=== PATIENT | female | born 1960 | race American Indian/Alaskan Native ===

== ENCOUNTER 2020-12-15 19:31 | Inpatient (IN) | payer MEDICARE ==
--- NOTE | 2020-12-15 20:18 | Emergency Department Report ---
ED General Adult HPI - General Chief complaint: Weakness Stated complaint: I feel like it is my COPD PUI?: No Time Seen by Provider: 12/15/20 19:52 Source: patient, RN notes reviewed Mode of arrival: Stretcher Limitations: Physical Limitation - History of Present Illness Initial comments: The patient is a 60-year-old female. She is not known to myself previously. She reports a history of chronic respiratory failure on home oxygen, COPD and hypertension. She has received a COVID-19 vaccination. Primary CARE doctor: Dr Vinnie Lan Pulmonology: Dr Emmett Rivera The patient presents to the ER today with a primary complaint of cough, wheezing, shortness of breath, whitish mucus production, feeling like her COPD is exacerbating. Last COPD exacerbation was 3 to 4 months ago. She has been hospitalized at [facility] in the past. Denies travel, surgery, immobilization, leg pain or leg swelling, DVT and pulmonary embolism risk factors. She reports that she has some posttussive emesis, not able to tolerate liquid feeds at this time, has had some nausea and vomiting, and therefore has not been able to tolerate her oral antihypertensive medications. She complains of headache, which is occipital and throbbing, not sudden or thunderclap in nature, not maximal in intensity, and not the worst headache of her life. She typically gets a headache like this during her COPD exacerbations. She also endorses chest tightness, associated with coughing. Symptoms present for the past 3 to 4 days. They are constant. They decreased with rest. They worsen with physical exertion. -: Gradual, days(s) Location: head, chest Consistency: constant Improves with: rest Worsens with: movement - Related Data Allergies Allergy/AdvReac Type Severity Reaction Status Date / Time No Known Allergies Allergy Unverified 12/15/20 20:19 ED Review of Systems ROS: Stated complaint: COPD Other details as noted in HPI Constitutional: fever, malaise, weakness Eyes: denies: eye discharge ENT: congestion Respiratory: cough, shortness of breath, SOB with exertion, SOB at rest, wheezing Cardiovascular: chest pain (Chest wall pain with coughing). denies: syncope Gastrointestinal: nausea, vomiting. denies: abdominal pain Genitourinary: denies: dysuria Musculoskeletal: myalgia Neurological: headache, weakness Hematological/Lymphatic: denies: easy bleeding ED Physical Exam - General Limitations: Physical Limitation General appearance: alert, anxious, in distress - Head Head exam: Present: atraumatic, normocephalic - Eye Eye exam: Present: normal appearance, EOMI. Absent: nystagmus - ENT ENT exam: Present: normal exam, normal orophraynx, mucous membranes moist, normal external ear exam - Neck Neck exam: Present: normal inspection, full ROM. Absent: tenderness, meningismus - Respiratory Respiratory exam: Present: respiratory distress, wheezes, rhonchi, accessory muscle use. Absent: normal lung sounds bilaterally - Cardiovascular Cardiovascular Exam: Present: normal rhythm, tachycardia, normal heart sounds. Absent: bradycardia, irregular rhythm, systolic murmur, diastolic murmur, rubs, gallop - GI/Abdominal GI/Abdominal exam: Present: soft. Absent: distended, tenderness, guarding, rebound, rigid, pulsatile mass - Extremities Exam Extremities exam: Present: normal inspection, full ROM, other (2+ pulses noted in the bilateral upper and lower extremities. There is no palpable cord. negative Homans sign. Muscular compartments are soft. The pelvis is stable.). Absent: pedal edema, calf tenderness - Back Exam Back exam: Present: normal inspection. Absent: tenderness, CVA tenderness (R), CVA tenderness (L), paraspinal tenderness, vertebral tenderness - Neurological Exam Neurological exam: Present: alert, oriented X3, other (No facial droop. Tongue midline. Extraocular movements intact bilaterally. Facial sensation intact to light touch in V1, V2, V3 distribution bilaterally. 5 and a 5 strength in 4 extremities. Sensation intact to light touch in 4 extremities.). Absent: motor sensory deficit - Psychiatric Psychiatric exam: Present: anxious - Skin Skin exam: Present: warm, dry, intact, normal color. Absent: rash ED Course Vital Signs 12/15/20 12/15/20 12/15/20 20:09 20:14 20:16 Temperature 100.8 F H Pulse Rate 119 H 118 H 118 H Pulse Rate [ Anterior Bilateral Throughout] Respiratory 34 H 24 23 Rate Respiratory Rate [Anterior Bilateral Throughout] Blood Pressure 214/111 214/111 O2 Sat by Pulse 96 95 94 Oximetry 12/15/20 12/15/20 12/15/20 20:25 21:05 21:30 Temperature Pulse Rate 131 H Pulse Rate [ 116 H 150 H Anterior Bilateral Throughout] Respiratory 27 H Rate Respiratory 28 H 40 H Rate [Anterior Bilateral Throughout] Blood Pressure O2 Sat by Pulse 94 100 Oximetry 12/15/20 22:00 Temperature Pulse Rate 120 H Pulse Rate [ Anterior Bilateral Throughout] Respiratory Rate Respiratory Rate [Anterior Bilateral Throughout] Blood Pressure O2 Sat by Pulse 100 Oximetry - Reevaluation(s) Reevaluation #1: 12/15/20 20:24 Differential diagnosis, including but not limited to: COPD exacerbation, pneumonia, viral syndrome, migraine headache, tension headache, cluster headache, hypertensive urgency Assessment and plan: 60-year-old female, who is febrile, tachypneic and tachycardic, likely secondary to underlying COPD exacerbation, who denies DVT and pulmonary embolism risk factors, with a number of other typical symptoms for herself, including headache and chest tightness. Given fever, tachycardia, tachypnea, elevated blood pressure, I recommended admission to the medical ervice once initial diagnostics have resulted. We will obtain appropriate laboratory studies, x-ray the chest, start albuterol, Atrovent, steroids, give 1 L of fluid, and empiric antibiotics. We will also give acetaminophen. We will start with Norvasc for antihypertensive therapy, patient is likely volume depleted, and would prefer to avoid negative inotropes such as labetalol, and vasodilators, such as hydralazine. Have discussed this plan of care with the patient, who is agreeable to the a forementioned. She has received her Covid vaccination. She has no meningeal signs, and a GCS of 15. Do not suspect invasive intracranial infection at this time. Has equal pulses in upper and lower extremities, no pulsatile abdominal mass, aortic disease is unlikely. 12/15/20 21:04 Patient clinically worsening. We will start BiPAP. Patient is awake, very anxious, she is protecting her airway at this time. Hospital physician, Dr. Lottie Calvillo to admit to [facility] 12/15/20 21:42 Patient decompensated on BiPAP, and became hypoxic. We discussed the need for intubation. Patient gave consent for intubation. Patient intubated. Please see procedure note. She will be given IV antihypertensive therapy given inability to tolerate oral medications at this time. Hospital physician aware, to admit patient to the intensive care unit. Have requested page/discussion with pulmonary critical care. Hypokalemia, hypomagnesemia addressed. Patient induced with ketamine, could not tolerate ketamine only intubation, and therefore paralyzed with rocuronium. 12/15/20 23:16 Patient appears much more comfortable on mechanical ventilation. Blood pressure decreased while on fentanyl and propofol. Have made recommendations to nursing staff on how they may titrate these medications. Blood pressure currently 130s, I have canceled hydralazine. - Consultations Consultation #1: 12/15/20 22:05 Delfino history, physical, overall plan of care and clinical impression with critical care physician, Dr. Jaimes Who is agreeable to this plan of care, and will follow in consultation in the intensive care unit. - Intubation Time Out Performed: No (Emergency situation) Sedative: Ketamine Mg Given: 100 Paralytic: Rocuronium Mg Given: 100 Laryngoscope: fiberoptic video scope Size: 4 Assist Device Used: Bougie ET Tube Size: 7.5 Tube Secured Depth (cm): 23 Tube Secured Location: teeth Tube Placement Confirmation: visualized tube passing t, equal breath sounds bilat, no breath sounds over epi, confirmation by capnometr Intubation Complications: none Additional Comments: Patient on BiPAP, has 100%. Marked respiratory distress. Has given verbal consent for emergent intubation. 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 However, jaw spasming, not able to tolerate laryngoscopy. Paralyzed with 100 mg of rocuronium. Continues to receive [id number] ventilation, and simultaneous nasal cannula oxygenation at 15 L/min. Video laryngoscopy performed, patient found to be very anterior. Bougie catheter placed under direct video guidance, and then a 7.5 endotracheal tube is inserted under direct visualization with video laryngoscopy. Guitar Repairer balloon inflated, and attached to [id number], end-tidal capnography color change is appropriate. Prior to initiating patient on ventilator, deep pressure and excursion is applied to the anterior abdominal wall, to decompress the bilateral lungs, to avoid auto PEEP/breath stacking. Ventilator on lung protective strategy. ED Medical Decision Making - Lab Data Result diagrams: 12/15/20 20:24 12/15/20 20:24 Vital Signs 12/15/20 12/15/20 12/15/20 20:09 20:14 20:16 Temperature 100.8 F H Pulse Rate 119 H 118 H 118 H Respiratory 34 H 24 23 Rate Blood Pressure 214/111 214/111 O2 Sat by Pulse 96 95 94 Oximetry - EKG Data -: EKG Interpreted by Me EKG shows normal: sinus rhythm Rate: tachycardia - EKG Data When compared to previous EKG there are: previous EKG unavailable 12/15/20 20:37 EKG is interpreted 20: 30. Sinus rhythm, rate 114 bpm, tachycardia, normal axis, normal P wave axis, QTC 446 ms, left ventricular hypertrophy, motion artifact, abnormal EKG, this is not a STEMI. Do not have a prior for comparison. - Radiology Data Radiology results: pending Critical Care Time: Yes Critical care time in (mins) excluding proc time.: 45 Critical care attestation.: If time is entered above; I have spent that time in minutes in the direct care of this critically ill patient, excluding procedure time. ED Disposition Clinical Impression: COPD with acute exacerbation, Hypertensive urgency, Hypomagnesemia, Hypokalemia, Acute respiratory failure, Acute respiratory acidosis Disposition: 09 OP ADMIT IP TO THIS HOSP Is pt being admited?: Yes Does the pt Need Aspirin: No Condition: Critical
[2020-12-15] MEDS ORDERED: AZITHROMYCIN/NS 500 MG/250 ML 500 MG/250 ML BAG IV ONE (20:20)
[2020-12-15] MEDS ORDERED: cefTRIAXone/NS 1 GM/50 ML 1 GM/50 ML BAG IV ONE (20:20)
[2020-12-15] MEDS ORDERED: LACTATED RINGERS 1,000 ML IV ONE (20:30)
[2020-12-15] MEDS ORDERED: ALBUTEROL 2.5 MG/3 ML NEBU IH ONE (20:30)
[2020-12-15] MEDS ORDERED: IPRATROPIUM 0.02% NEBU 2.5 ML IH ONE (20:30)
[2020-12-15 20:59] LABS: Hemoglobin 10.8 gm/dl (10.1-14.3); Mean Corpuscular HGB Conc 32 % (30-34); Mean Corpuscular Volume 86 fl (79-97); Platelet Count 239 K/mm3 (140-440); Red Blood Count 3.98 M/mm3 (3.65-5.03); Red Cell Distribution Width 16.3 % (13.2-15.2)
[2020-12-15] MEDS ORDERED: ACETAMINOPHEN 325 MG TAB PO ONE (21:00)
[2020-12-15] MEDS ORDERED: METOCLOPRAMIDE 10 MG/2 ML INJ IV ONE (21:00)
[2020-12-15] MEDS ORDERED: methylPREDNISolone Sod Succinate 125 MG/2 ML INJ IV ONE (21:00)
[2020-12-15] MEDS ORDERED: amLODIPine 5 MG TAB PO ONE (21:00)
[2020-12-15] MEDS ORDERED: diphenhydrAMINE 50 MG/ML VIAL IV ONE (21:00)
[2020-12-15 21:03] LABS: Blood Urea Nitrogen 10 mg/dL (7-17); Calcium 9.2 mg/dL (8.4-10.2); Hemolysis Index 4
[2020-12-15 21:04] LABS: INR 0.81 (0.87-1.13)
[2020-12-15 21:05] LABS: BUN/Creatinine Ratio 33
[2020-12-15] MEDS ORDERED: MAGNESIUM SULFATE 2 GM/50 ML BAG IV ONE (21:15)
--- NOTE | 2020-12-15 21:19 | XRay Report ---
CHEST 1 VIEW 12/15/2020 9:04 PM INDICATION / CLINICAL INFORMATION: Dyspnea. COMPARISON: None available. FINDINGS: SUPPORT DEVICES: None. HEART / MEDIASTINUM: No significant abnormality. LUNGS / PLEURA: There is increased interstitial prominence with some interstitial opacities in bilate ral lungs. Lungs are hyperexpanded. No pneumothorax. Signer Name: Rick Carolina MD Signed: 12/15/2020 9:15 PM Workstation Name: [id number]
[2020-12-15] MEDS ORDERED: ROCURONIUM 50 MG/5 ML INJ IV ONE ×2 (21:30→21:40)
[2020-12-15] MEDS ORDERED: KETAMINE 500 MG/5 ML VIAL MDV ONE (21:30)
[2020-12-15] MEDS ORDERED: LIP THERAPY VASELINE TP PRN (21:40)
[2020-12-15] MEDS ORDERED: KETAMINE 500 MG/5 ML VIAL MDV IV ONE (21:40)
[2020-12-15] MEDS ORDERED: hydrALAZINE 20 MG/1 ML INJ IV ONE (21:40)
[2020-12-15] MEDS ORDERED: MINERAL OIL/PETROLATUM, WHITE OPHTH OINT 3.5 GM OU PRN (21:40)
[2020-12-15 21:42] LABS: Anisocytosis 1+; Platelet Estimate Consistent w Auto; Total Cells Counted 100
[2020-12-15] MEDS ORDERED: MORPHINE 2 MG/1 ML INJ IV PRN (21:43)
[2020-12-15] MEDS ORDERED: ACETAMINOPHEN 650 MG RECT SUPP PR PRN (21:43)
[2020-12-15] MEDS ORDERED: ONDANSETRON 4 MG/2 ML INJ IV PRN (21:43)
[2020-12-15] MEDS ORDERED: MORPHINE 4 MG/1 ML INJ IV PRN (21:43)
[2020-12-15] MEDS: fentaNYL 100 MCG/2 ML INJ IV PRN ×2 (21:54→22:10)
--- NOTE | 2020-12-15 21:55 | History and Physical Report ---
History of Present Illness Date of examination: 12/15/20 Date of admission: 12/15/2020 Chief complaint: Shortness of Breath History of present illness: 60-year-old -[place]ammar[place] female with known history of hypertension, COPD on home oxygen presenting to the emergency room today complaining of shortness of breath and cough which has been ongoing for the past few days. Patient denies any fever or chills, denies any chest pain, no headache or dizziness, but has had some nausea and vomiting. She has had some cough which has been productive of some whitish sputum. Patient denies any sick contacts or recent travel. Denies any contact with anyone with COVID-19. She has received COVID-19 vaccination. Upon arrival here in the emergency room today patient was seen severe respiratory distress and was placed on BiPAP initially and subsequently intubated. She received some nebulizing treatments and IV steroids with some improvement. Work-up in the emergency room today, labs were significant for hypokalemia of 3.0, hypomagnesemia of 1.6 Chest x-ray reveals increased interstitial prominence with some interstitial opacities in bilateral lungs. Lungs hyperexpanded and no pneumothorax. Patient is being admitted with COPD exacerbation with severe respiratory failure, hypomagnesemia and hypokalemia. Past History Past Medical History: COPD, hypertension Past Surgical History: No surgical history Social history: no significant social history, smoking (former smoker) Family history: no significant family history Medications and Allergies Allergies Allergy/AdvReac Type Severity Reaction Status Date / Time No Known Allergies Allergy Unverified 12/15/20 20:19 Active Meds: Active Medications Acetaminophen (Acetaminophen 650 Mg Rect Supp) 650 mg ID Q6H PRN PRN Reason: Pain MILD(1-3)/Fever >100.5/DELGADO Albuterol/Ipratropium (Ipratropium/Albuterol Sulfate 3 Ml Ampul.Neb) 1 ampul IH Q4HRT DAE Famotidine (Famotidine 20 Mg/2 Ml Inj) 20 mg IV BID DAE Fentanyl (Fentanyl 100 Mcg/2 Ml Inj) 50 mcg IV Q10MIN PRN PRN Reason: ANALGESIA Heparin Sodium (Porcine) (Heparin 5,000 Unit/1 Ml Vial) 5,000 unit SUB-Q Q8HR DAE Heparin Sodium (Porcine) (Heparin 5,000 Unit/1 Ml Vial) 5,000 unit SUB-Q Q8HR [facility] Hydrophilic Ointment (Lip Therapy Vaseline) 1 applic TP Q2HR PRN PRN Reason: Dry Lips Potassium Chloride (Kcl 10meq/100ml) 10 meq in 100 mls @ 100 mls/hr IV Q1H [facility] Stop: 12/16/20 01:59 Fentanyl Citrate (Fentanyl Drip Premix) 2,000 mcg in 100 mls @ 4.3 mls/hr IV TITR DAE; Protocol Propofol (Diprivan 10 Mg/Ml) 1,000 mg in 100 mls @ 2.58 mls/hr IV TITR DAE; Protocol Levofloxacin/Dextrose (Levaquin 500mg/100ml) 500 mg in 100 mls @ 100 mls/hr IV Q24H DAE; Protocol Methylprednisolone Sodium Succinate (Methylprednisolone Sod Succinate 40 Mg/1 Ml Inj) 40 mg IV Q8HR DAE Morphine Sulfate (Morphine 2 Mg/1 Ml Inj) 2 mg IV Q4H PRN PRN Reason: Pain, Moderate (4-6) Morphine Sulfate (Morphine 4 Mg/1 Ml Inj) 4 mg IV Q4H PRN PRN Reason: Pain , Severe (7-10) Multi-Ingred Cream/Lotion/Oil/Oint (Mineral Oil/Petrolatum, White Ophth Oint 3.5 Gm) 1 applic OU Q4HR PRN PRN Reason: Dry Eye(s) Ondansetron HCl (Ondansetron 4 Mg/2 Ml Inj) 4 mg IV Q8H PRN PRN Reason: Nausea And Vomiting Senna/Docusate Sodium (Sennosides/Docusate Sodium 8.6/50 Mg Tab) 1 tab FEEDTUBE BID DAE Sodium Chloride (Sodium Chloride 0.9% 10 Ml Flush Syringe) 10 ml IV BID DAE Sodium Chloride (Sodium Chloride 0.9% 10 Ml Flush Syringe) 10 ml IV PRN PRN PRN Reason: LINE FLUSH Review of Systems Constitutional: no fever, no chills Ears, nose, mouth and throat: no nasal congestion, no sore throat Cardiovascular: no chest pain, no palpitations Respiratory: cough, shortness of breath, wheezing Gastrointestinal: nausea, vomiting, no abdominal pain, no diarrhea Genitourinary Female: no pelvic pain, no flank pain, no dysuria, no hematuria Musculoskeletal: no neck pain, no low back pain Integumentary: no rash, no pruritis Neurological: no headaches, no confusion Psychiatric: no anxiety, no depression Endocrine: no polyphagia, no polydipsia, no polyuria, no nocturia Exam - Constitutional Vitals: Temp Pulse Resp BP Pulse Ox 100.8 F H 116 H 28 H 214/111 94 12/15/20 20:14 12/15/20 20:25 12/15/20 20:25 12/15/20 20:16 12/15/20 20:25 HEART Score - HEART Score Troponin: Troponin T < 0.010 ng/mL (0.00-0.029) 12/15/20 20:24 Results - Labs CBC & Chem 7: 12/15/20 20:24 12/15/20 20:24 Labs: Abnormal lab results 12/15/20 12/15/20 12/15/20 Range/Units 20:24 20:24 20:24 MCH 27 L (28-32) pg RDW 16.3 H (13.2-15.2) % Monocytes % (Manual) 23.0 H (0.0-7.3) % Lymphocytes # (Manual) 0.9 L (1.2-5.4) K/mm3 Monocytes # (Manual) 1.2 H (0.0-0.8) K/mm3 PT 11.8 L (12.2-14.9) Sec. INR 0.81 L (0.87-1.13) Potassium (3.6-5.0) mmol/L Chloride (98-107) mmol/L Carbon Dioxide (22-30) mmol/L Creatinine (0.6-1.2) mg/dL Magnesium 1.60 L (1.7-2.3) mg/dL 12/15/20 Range/Units 20:24 MCH (28-32) pg RDW (13.2-15.2) % Monocytes % (Manual) (0.0-7.3) % Lymphocytes # (Manual) (1.2-5.4) K/mm3 Monocytes # (Manual) (0.0-0.8) K/mm3 PT (12.2-14.9) Sec. INR (0.87-1.13) Potassium 3.0 L (3.6-5.0) mmol/L Chloride 95.8 L (98-107) mmol/L Carbon Dioxide 32 H (22-30) mmol/L Creatinine 0.3 L (0.6-1.2) mg/dL Magnesium (1.7-2.3) mg/dL Assessment and Plan - Patient Problems (1) COPD with acute exacerbation Current Visit: Yes Status: Acute Plan to address problem: Patient admitted and placed on nebulizing treatments and IV steroid. Placed on empiric IV antibiotics for possible underlying bronchitis. We await evaluation by medicine teacher. (2) Acute respiratory failure Current Visit: Yes Status: Acute Plan to address problem: Secondary to the COPD exacerbation. Patient is currently intubated and sedated. Consult placed to the smelter liner for evaluation. Will monitor ABG. (3) Hypertensive urgency Current Visit: Yes Status: Acute Plan to address problem: Patient has not been able to tolerate this oral antihypertensive medications. We will place on IV hydralazine as needed. Will monitor vital signs closely. (4) Hypokalemia Current Visit: Yes Status: Acute Plan to address problem: Potassium will be repleted and will monitor chemistry. (5) Hypomagnesemia Current Visit: Yes Status: Acute Plan to address problem: Magnesium will be repleted and will monitor chemistry. (6) DVT prophylaxis Current Visit: Yes Status: Acute Plan to address problem: Patient placed on subcutaneous heparin. (7) Full code status Current Visit: Yes Status: Acute Plan to address problem: Patient is full code.
[2020-12-15] MEDS ORDERED: hydrALAZINE 20 MG/1 ML INJ IV PRN (21:58)
[2020-12-15] MEDS ORDERED: HEPARIN 5,000 UNIT/1 ML VIAL SUB-Q SCH (22:00)
[2020-12-15] MEDS: fentaNYL DRIP Premix 2,000 MCG/100 ML BAG IV SCH (22:02)
--- NOTE | 2020-12-15 22:26 | XRay Report ---
CHEST 1 VIEW 12/15/2020 10:02 PM INDICATION / CLINICAL INFORMATION: ETT placement. COMPARISON: 12/15/2020 FINDINGS: SUPPORT DEVICES: ET tube is 5.1 cm above the tonya HEART / MEDIASTINUM: No significant abnormality. LUNGS / PLEURA: Increased interstitial prominence and opacities in bilateral lungs No pneumothorax. Signer Name: Rick Carolina MD Signed: 12/15/2020 10:22 PM Workstation Name: [id number]
[2020-12-15] MEDS: methylPREDNISolone Sod Succinate 40 MG/1 ML INJ IV SCH (22:28)
[2020-12-15] MEDS: IPRATROPIUM/ALBUTEROL SULFATE 3 ML AMPUL.NEB IH SCH (23:41)
[2020-12-16] MEDS: POTASSIUM CHLORIDE 10 MEQ 10 MEQ/100 ML BAG IV SCH ×4 (00:10→03:15)
[2020-12-16] MEDS: HEPARIN 5,000 UNIT/1 ML VIAL SUB-Q SCH ×4 (00:16→22:08)
[2020-12-16] MEDS: FAMOTIDINE 20 MG/2 ML INJ IV SCH ×3 (00:16→22:08)
--- NOTE | 2020-12-16 01:07 | XRay Report ---
ABDOMEN 1 VIEW INDICATION / CLINICAL INFORMATION: OG tube placement. COMPARISON: None available. FINDINGS: TUBES / LINES: An orogastric tube terminates over the distal stomach. BOWEL GAS PATTERN: There is mild gaseous distention of the colon and small bowel. FREE AIR / EXTRALUMINAL GAS: None seen. ADDITIONAL FINDINGS: No significant additional findings. IMPRESSION: Satisfactory positioning of the OG tube with a nonspecific, nonobstructive bowel gas pattern. Ileus i s a consideration. Signer Name: Christos Emery MD Signed: 12/16/2020 1:02 AM Workstation Name: [email or web address]
[2020-12-16] MEDS: IPRATROPIUM/ALBUTEROL SULFATE 3 ML AMPUL.NEB IH SCH ×5 (03:47→20:48)
[2020-12-16 04:38] LABS: Hematocrit 30.3 % (30.3-42.9); Hemoglobin 9.6 gm/dl (10.1-14.3); Mean Corpuscular HGB Conc 32 % (30-34); Mean Corpuscular Volume 86 fl (79-97); Platelet Count 223 K/mm3 (140-440); Red Blood Count 3.54 M/mm3 (3.65-5.03); Red Cell Distribution Width 16.1 % (13.2-15.2)
[2020-12-16 04:54] LABS: Blood Urea Nitrogen 13 mg/dL (7-17); Calcium 8.9 mg/dL (8.4-10.2); Hemolysis Index 6
[2020-12-16 04:57] LABS: INR 0.85 (0.87-1.13)
[2020-12-16 05:31] LABS: BUN/Creatinine Ratio 26
[2020-12-16] MEDS: fentaNYL DRIP Premix 2,000 MCG/100 ML BAG IV SCH ×2 (05:40→23:45)
[2020-12-16] MEDS: SENNOSIDES/DOCUSATE SODIUM 8.6/50 MG TAB FEEDTUBE SCH ×2 (06:30→11:34)
[2020-12-16 06:37] LABS: Total Cells Counted 100
[2020-12-16 06:38] LABS: Anisocytosis 1+; Platelet Estimate Consistent w Auto
[2020-12-16] MEDS: methylPREDNISolone Sod Succinate 40 MG/1 ML INJ IV SCH ×3 (06:54→22:06)
--- NOTE | 2020-12-16 08:48 | XRay Report ---
CHEST - 1 VIEW 0736 hours INDICATION: follow up respiratory failure COMPARISON: Yesterday FINDINGS: Support devices: The endotracheal tube is unchanged in position terminating 6 cm superior to the car oanh. A nasogastric tube has been inserted which is followed to the mid stomach but the distal tip is not included. Heart: Stable cardiomediastinal silhouette. Lungs/pleura: The lungs remain hyperaerated with mild interstitial prominence but no focal infiltrat e, pleural effusion or pneumothorax. Additional findings: None. IMPRESSION: No significant change. Hyperinflated lungs. Signer Name: Robinson Brown Jr, MD Signed: 12/16/2020 8:44 AM Workstation Name: [id number]
--- NOTE | 2020-12-16 11:54 | Electrocardiograph Report ---
[facility] Test Date: 2020-12-15 Test Time: 20:32:59 Pat Name: ANDREW DEL VALLE Department: Room: [place] [address] Gender: F Communication Assistant: Petrona CANALES : 1960 Requested By: ANNA SAUCEDO Order Number: [id number] Reading MD: Gretel Calderon Measurements Intervals [place] Rate: 114 P: 82 [place]: 160 QRS: 68 QRSD: 75 T: 175 QT: 324 QTc: 446 Interpretive Statements Sinus tachycardia Biatrial enlargement Probable LVH with secondary repol abnrm No previous ECG available for comparison Electronically Signed On 12-16-2020 11:53:58 EDT by Gretel Calderon
--- NOTE | 2020-12-16 12:53 | Consultation ---
History of Present Illness Consult date: 12/16/20 Requesting physician: ANNA SAUCEDO Reason for consult: COPD History of present illness: PULMONARY/CCM CONSULT NOTE (Full dictation # [id number]) Please see dictated notes for full details Past History Past Medical History: COPD, hypertension Past Surgical History: No surgical history Social history: no significant social history, smoking (former smoker) Family history: no significant family history Medications and Allergies Allergies Allergy/AdvReac Type Severity Reaction Status Date / Time No Known Allergies Allergy Unverified 12/15/20 20:19 Active Meds: Active Medications Acetaminophen (Acetaminophen 650 Mg Rect Supp) 650 mg PA Q6H PRN PRN Reason: Pain MILD(1-3)/Fever >100.5/DELGADO Albuterol/Ipratropium (Ipratropium/Albuterol Sulfate 3 Ml Ampul.Neb) 1 ampul IH Q4HRT [facility] Last Admin: 12/16/20 11:30 Dose: 1 ampul Documented by: Famotidine (Famotidine 20 Mg/2 Ml Inj) 20 mg IV BID [facility] Last Admin: 12/16/20 11:34 Dose: 20 mg Documented by: Fentanyl (Fentanyl 100 Mcg/2 Ml Inj) 50 mcg IV Q10MIN PRN PRN Reason: ANALGESIA Last Admin: 12/15/20 22:10 Dose: 50 mcg Documented by: Heparin Sodium (Porcine) (Heparin 5,000 Unit/1 Ml Vial) 5,000 unit SUB-Q Q8HR DAE Last Admin: 12/16/20 06:29 Dose: 5,000 unit Documented by: Hydralazine HCl (Hydralazine 20 Mg/1 Ml Inj) 10 mg IV Q4H PRN PRN Reason: Blood Pressure Hydrophilic Ointment (Lip Therapy Vaseline) 1 applic TP Q2HR PRN PRN Reason: Dry Lips Fentanyl Citrate (Fentanyl Drip Premix) 2,000 mcg in 100 mls @ 4.3 mls/hr IV TITR DAE; Protocol Last Admin: 12/16/20 05:40 Dose: 3 mcg/kg/hr, 12.9 mls/hr Documented by: Propofol (Diprivan 10 Mg/Ml) 1,000 mg in 100 mls @ 2.58 mls/hr IV TITR DAE; Protocol Last Titration: 12/15/20 22:14 Dose: 15 mcg/kg/min, 7.74 mls/hr Documented by: Levofloxacin/Dextrose (Levaquin 750mg/150ml) 750 mg in 150 mls @ 100 mls/hr IV Q24H [facility]; Protocol Methylprednisolone Sodium Succinate (Methylprednisolone Sod Succinate 40 Mg/1 Ml Inj) 40 mg IV Q8HR [facility] Last Admin: 12/16/20 06:54 Dose: 40 mg Documented by: Morphine Sulfate (Morphine 2 Mg/1 Ml Inj) 2 mg IV Q4H PRN PRN Reason: Pain, Moderate (4-6) Morphine Sulfate (Morphine 4 Mg/1 Ml Inj) 4 mg IV Q4H PRN PRN Reason: Pain , Severe (7-10) Multi-Ingred Cream/Lotion/Oil/Oint (Mineral Oil/Petrolatum, White Ophth Oint 3.5 Gm) 1 applic OU Q4HR PRN PRN Reason: Dry Eye(s) Ondansetron HCl (Ondansetron 4 Mg/2 Ml Inj) 4 mg IV Q8H PRN PRN Reason: Nausea And Vomiting Senna/Docusate Sodium (Sennosides/Docusate Sodium 8.6/50 Mg Tab) 1 tab FEEDTUBE BID [facility] Last Admin: 12/16/20 11:34 Dose: 1 tab Documented by: Sodium Chloride (Sodium Chloride 0.9% 10 Ml Flush Syringe) 10 ml IV BID [facility] Last Admin: 12/16/20 11:11 Dose: 10 ml Documented by: Sodium Chloride (Sodium Chloride 0.9% 10 Ml Flush Syringe) 10 ml IV PRN PRN PRN Reason: LINE FLUSH Physical Examination Vital signs: Vital Signs Pulse Resp BP Pulse Ox 118 H 22 199/109 99 12/15/20 19:59 12/15/20 19:59 12/15/20 19:59 12/15/20 19:59 Results - Laboratory Findings CBC and BMP: 12/16/20 04:13 12/16/20 04:13 ABG ABG pH 7.358 (7.320-7.450) 12/16/20 04:01 POC ABG pCO2 52.7 mmHg (32.0-48.0) H 12/16/20 04:01 POC ABG pO2 145.1 mmHg (83-108) H 12/16/20 04:01 POC ABG HCO3 29.0 12/16/20 04:01 ABG O2 Saturation 99.2 (0-100) 12/16/20 04:01 PT/INR, D-dimer PT 12.2 Sec. (12.2-14.9) 12/16/20 04:13 INR 0.85 (0.87-1.13) L 12/16/20 04:13 Abnormal lab findings: Abnormal Labs 12/15/20 12/15/20 12/15/20 20:24 20:24 20:24 RBC Hgb MCH 27 L RDW 16.3 H Seg Neuts % (Manual) Lymphocytes % (Manual) Monocytes % (Manual) 23.0 H Lymphocytes # (Manual) 0.9 L Monocytes # (Manual) 1.2 H PT 11.8 L INR 0.81 L ABG pH POC ABG pCO2 POC ABG pO2 ABG Hemoglobin ABG Oxyhemoglobin ABG Sodium ABG Potassium ABG Glucose Carboxyhemoglobin Sodium Potassium Chloride Carbon Dioxide Creatinine Glucose Magnesium 1.60 L Arterial Blood Glucose 12/15/20 12/15/20 12/16/20 20:24 22:44 04:01 RBC Hgb MCH RDW Seg Neuts % (Manual) Lymphocytes % (Manual) Monocytes % (Manual) Lymphocytes # (Manual) Monocytes # (Manual) PT INR ABG pH 7.179 L POC ABG pCO2 87.2 H 52.7 H POC ABG pO2 78.7 L 145.1 H ABG Hemoglobin 10.4 L 10.0 L ABG Oxyhemoglobin 91.8 L 98.7 H ABG Sodium 132.4 L ABG Potassium 3.0 L ABG Glucose 144 H 127 H Carboxyhemoglobin 0.2 L Sodium Potassium 3.0 L Chloride 95.8 L Carbon Dioxide 32 H Creatinine 0.3 L Glucose Magnesium Arterial Blood Glucose 144 H 127 H 12/16/20 12/16/20 12/16/20 04:13 04:13 04:13 RBC 3.54 L Hgb 9.6 L MCH 27 L RDW 16.1 H Seg Neuts % (Manual) 91.0 H Lymphocytes % (Manual) 2.0 L Monocytes % (Manual) Lymphocytes # (Manual) 0.1 L Monocytes # (Manual) PT INR 0.85 L ABG pH POC ABG pCO2 POC ABG pO2 ABG Hemoglobin ABG Oxyhemoglobin ABG Sodium ABG Potassium ABG Glucose Carboxyhemoglobin Sodium 136 L Potassium Chloride Carbon Dioxide Creatinine 0.5 L D Glucose 128 H Magnesium Arterial Blood Glucose
[2020-12-16] MEDS ORDERED: MAGNESIUM SULFATE 2 GM/50 ML BAG IV ONE (17:00)
[2020-12-16] MEDS ORDERED: ARFORMOTEROL 15 MCG/2 ML NEBU IH SCH (20:00)
[2020-12-16] MEDS: BUDESONIDE 0.5 MG/2 ML NEBU IH SCH (20:48)
--- NOTE | 2020-12-16 21:50 | Progress Note ---
Assessment and Plan Assessment and plan: This is a 60-year-old -[place] female with HTN, COPD on home oxygen 2L and former nicotine abuse admitted with COPD exacerbation with severe respiratory failure, hypomagnesemia and hypokalemia with consult to [facility]. Neuro: Acute metabolic encephaloptahy -fall/aspiration precautions -Restraints for safety -Sedated -RASS goal 0 to -1 -Daily SAT Cardio: ST, h/o HTN -PRN IV medication for BP control -Monitor BP per protocol -Resume home antihtn regimn when able Resp: Acute on Chronic Respiratory failure, COPD exacerbation, Home O2 NC 3 L, former smoker -OETT 7.5 at 23 at the lips -AC Rate 30, TV 300, FiO2 35%, PEEP 8 -VAP bundle -Wean MV as tolerated -SBT trials -Serial CXR and ABGs GI: NPO, OGT -Ntr consult -BS swallow eval when extubated -PPI -[place] -Aviod hypoglycemia -SSI : hypokalemaia, hypomagnesemia, -Repelte K and Mg -Trend BMP -[place] Endo: h/o DM -IVF with D5NS -SSI -Accucheck q4 -avoid huypoglemia -hold home metformin ID: COPD exacerbation -CXR shows some interstitial opacities in B lungs -Levaquin 12/16-12/20 -Trend CBC -afebrile Heme: -VTE; heparin subq -SCDS to BLE while in bed -Trend CBC The high probability of a clinically significant, sudden or life threatening deterioration of the [resp] system(s) required my full and direct attention, intervention and personal management. The aggregate critical care time was [60] minutes. This time is in addition to time spent performing reported procedures but includes the following: [x] Data Review and interpretation [x] Patient assessment and monitoring of vital signs [x] Documentation [x] Medication orders and management Disposition Plan: ICU Total Time Spent with Patient (Minutes): 60 History Interval history: This is a 60-year-old -[place] female with HTN, COPD on home oxygen 2L and former nicotine abuse who presented to the ED on 12/15 with complains of SOB and productive cough with whiteish sputum for the past few days, n/v and received her COVID 19 vaccination. Upon arrival here in the emergency room patient was in severe respiratory distress and was placed on BiPAP initially and subsequently intubated after receiving nebulizing treatments and IV steroids with some improvement. Work-up in the emergency room showed labs significant for hypokalemia of 3.0, hypomagnesemia of 1.6 and chest x-ray revealed increased interstitial prominence with some interstitial opacities in bilateral lungs, Lungs hyperexpanded and no pneumothorax. Patient is being admitted to the hospitalist service with COPD exacerbation with severe respiratory failure, hypomagnesemia and hypokalemia with consult to [facility]. 12/16: remains intubated, [facility] attempted PS with repeat ABG in hopes extubation. K and Mg replaced. Hospitalist Physical - Constitutional Vitals: Temp Pulse Resp BP Pulse Ox 100.8 F H 90 16 159/96 98 12/15/20 20:14 12/16/20 20:00 12/16/20 20:00 12/16/20 20:00 12/16/20 20:00 General appearance: Present: no acute distress - EENT Eyes: Present: PERRL, EOM intact ENT: clear oral mucosa - Neck Neck: Present: normal ROM - Respiratory Respiratory effort: normal - Cardiovascular Rhythm: regular - Extremities Extremities: no ischemia, pulses intact Peripheral Pulses: within normal limits - Abdominal General gastrointestinal: soft - Integumentary Integumentary: Present: warm, dry - Psychiatric Psychiatric: other (sedated) - Neurologic Neurologic: other (sedated) - Allied Health Allied health notes reviewed: nursing, RT HEART Score - HEART Score Troponin: Troponin T < 0.010 ng/mL (0.00-0.029) 12/15/20 20:24 Results - Labs CBC & Chem 7: 12/17/20 08:06 12/17/20 08:06 Labs: Laboratory Last Values WBC 6.4 K/mm3 (4.5-11.0) 12/16/20 04:13 RBC 3.54 M/mm3 (3.65-5.03) L 12/16/20 04:13 Hgb 9.6 gm/dl (10.1-14.3) L 12/16/20 04:13 Hct 30.3 % (30.3-42.9) 12/16/20 04:13 MCV 86 fl (79-97) 12/16/20 04:13 MCH 27 pg (28-32) L 12/16/20 04:13 MCHC 32 % (30-34) 12/16/20 04:13 RDW 16.1 % (13.2-15.2) H 12/16/20 04:13 Plt Count 223 K/mm3 (140-440) 12/16/20 04:13 [place] % (Auto) Platen Grinder 12/15/20 20:24 Baso % (Auto) Platen Grinder 12/15/20 20:24 Add Manual Diff Complete 12/16/20 04:13 Total Counted 100 12/16/20 04:13 Seg Neutrophils % Platen Grinder 12/16/20 04:13 Seg Neuts % (Manual) 91.0 % (40.0-70.0) H 12/16/20 04:13 Lymphocytes % (Manual) 2.0 % (13.4-35.0) L 12/16/20 04:13 Monocytes % (Manual) 7.0 % (0.0-7.3) 12/16/20 04:13 Eosinophils % (Manual) 1.0 % (0.0-4.3) 12/15/20 20:24 Nucleated RBC % Not Reportable 12/16/20 04:13 Seg Neutrophils # Man 5.8 K/mm3 (1.8-7.7) 12/16/20 04:13 Band Neutrophils # 0.0 K/mm3 12/16/20 04:13 Lymphocytes # (Manual) 0.1 K/mm3 (1.2-5.4) L 12/16/20 04:13 Abs React Lymphs (Man) 0.0 K/mm3 12/16/20 04:13 Monocytes # (Manual) 0.4 K/mm3 (0.0-0.8) 12/16/20 04:13 Eosinophils # (Manual) 0.0 K/mm3 (0.0-0.4) 12/16/20 04:13 Basophils # (Manual) 0.0 K/mm3 (0.0-0.1) 12/16/20 04:13 Metamyelocytes # 0.0 K/mm3 12/16/20 04:13 Myelocytes # 0.0 K/mm3 12/16/20 04:13 Promyelocytes # 0.0 K/mm3 12/16/20 04:13 Blast Cells # 0.0 K/mm3 12/16/20 04:13 WBC Morphology Not Reportable 12/16/20 04:13 Hypersegmented Neuts Not Reportable 12/16/20 04:13 Hyposegmented Neuts Not Reportable 12/16/20 04:13 Hypogranular Neuts Not Reportable 12/16/20 04:13 Smudge Cells Not Reportable 12/16/20 04:13 Toxic Granulation Not Reportable 12/16/20 04:13 Toxic Vacuolation Not Reportable 12/16/20 04:13 Dohle Bodies Not Reportable 12/16/20 04:13 Pelger-Huet Anomaly Not Reportable 12/16/20 04:13 Clau Rods Not Reportable 12/16/20 04:13 Platelet Estimate Consistent w auto 12/16/20 04:13 Clumped Platelets Not Reportable 12/16/20 04:13 Plt Clumps, EDTA Not Reportable 12/16/20 04:13 Large Platelets Not Reportable 12/16/20 04:13 Giant Platelets Not Reportable 12/16/20 04:13 Platelet Satelliting Not Reportable 12/16/20 04:13 Plt Morphology Comment Not Reportable 12/16/20 04:13 RBC Morphology Not Reportable 12/16/20 04:13 Dimorphic RBCs Not Reportable 12/16/20 04:13 Polychromasia Not Reportable 12/16/20 04:13 Hypochromasia Not Reportable 12/16/20 04:13 Poikilocytosis Not Reportable 12/16/20 04:13 Anisocytosis 1+ 12/16/20 04:13 Microcytosis Not Reportable 12/16/20 04:13 Macrocytosis Not Reportable 12/16/20 04:13 Spherocytes Not Reportable 12/16/20 04:13 Pappenheimer Bodies Not Reportable 12/16/20 04:13 Sickle Cells Not Reportable 12/16/20 04:13 Target Cells Not Reportable 12/16/20 04:13 Tear Drop Cells Not Reportable 12/16/20 04:13 Ovalocytes Not Reportable 12/16/20 04:13 Helmet Cells Not Reportable 12/16/20 04:13 [place] Bodies Not Reportable 12/16/20 04:13 [place] Rings Not Reportable 12/16/20 04:13 [place] Cells Not Reportable 12/16/20 04:13 Bite Cells Not Reportable 12/16/20 04:13 Crenated Cell Not Reportable 12/16/20 04:13 Elliptocytes Not Reportable 12/16/20 04:13 Acanthocytes (Spur) Not Reportable 12/16/20 04:13 Rouleaux Not Reportable 12/16/20 04:13 Hemoglobin C Crystals Not Reportable 12/16/20 04:13 Schistocytes Not Reportable 12/16/20 04:13 Malaria parasites Not Reportable 12/16/20 04:13 Patric Bodies Not Reportable 12/16/20 04:13 Hem Pathologist Commnt No 12/16/20 04:13 PT 12.2 Sec. (12.2-14.9) 12/16/20 04:13 INR 0.85 (0.87-1.13) L 12/16/20 04:13 ABG pH 7.358 (7.320-7.450) 12/16/20 04:01 POC ABG pCO2 52.7 mmHg (32.0-48.0) H 12/16/20 04:01 POC ABG pO2 145.1 mmHg (83-108) H 12/16/20 04:01 POC ABG HCO3 29.0 12/16/20 04:01 ABG O2 Saturation 99.2 (0-100) 12/16/20 04:01 POC ABG Base Excess 2.8 12/16/20 04:01 ABG Hemoglobin 10.0 (12.0-17.5) L 12/16/20 04:01 ABG Oxyhemoglobin 98.7 (94-98) H 12/16/20 04:01 ABG Methemoglobin 0.3 (0.0-1.5) 12/16/20 04:01 ABG Sodium 132.4 mmol/L (136.0-145.0) L 12/16/20 04:01 ABG Potassium 4.1 mmol/L (3.40-4.50) 12/16/20 04:01 ABG Chloride 99.0 mmol/L (98-107) 12/16/20 04:01 ABG Glucose 127 mg/dL (65-95) H 12/16/20 04:01 Carboxyhemoglobin 0.2 (0.5-1.5) L 12/16/20 04:01 FiO2 % 40.0 12/16/20 04:01 Sodium 136 mmol/L (137-145) L 12/16/20 04:13 Potassium 4.3 mmol/L (3.6-5.0) D 12/16/20 04:13 Chloride 98.0 mmol/L (98-107) 12/16/20 04:13 Carbon Dioxide 29 mmol/L (22-30) 12/16/20 04:13 Anion Gap 13 mmol/L 12/16/20 04:13 BUN 13 mg/dL (7-17) 12/16/20 04:13 Creatinine 0.5 mg/dL (0.6-1.2) L D 12/16/20 04:13 Estimated GFR > 60 ml/min 12/16/20 04:13 BUN/Creatinine Ratio 26 % 12/16/20 04:13 Glucose 128 mg/dL (65-100) H 12/16/20 04:13 POC Glucose 125 mg/dL (70-105) H 12/16/20 21:21 Lactic Acid 0.70 mmol/L (0.7-2.0) 12/15/20 20:44 Calcium 8.9 mg/dL (8.4-10.2) 12/16/20 04:13 Magnesium 1.60 mg/dL (1.7-2.3) L 12/15/20 20:24 Total Creatine Kinase 45 units/L (30-135) 12/15/20 20:24 Troponin T < 0.010 ng/mL (0.00-0.029) 12/15/20 20:24 Arterial Blood Glucose 127 mg/dL (65-95) H 12/16/20 04:01 Arterial Blood Ionized Calcium 4.6 mg/dL (4.6-5.3) 12/16/20 04:01 Microbiology: Microbiology 12/15/20 22:46 Tracheal Aspirate Sputum Culture - Preliminary 12/15/20 20:44 Peripheral/Venous Blood Culture - Preliminary Culture in Progress 12/15/20 20:44 Peripheral/Venous Blood Culture - Preliminary Culture in Progress Active Medications - Current Medications Current Medications: Generic Name Dose Route Start Last Admin Trade Name Freq PRN Reason Stop Dose Admin Acetaminophen 650 mg 12/15/20 21:43 Acetaminophen 650 Mg Rect Supp WI Q6H PRN Pain MILD(1-3)/Fever >100.5/DELGADO Albuterol/Ipratropium 1 ampul 12/16/20 20:00 12/16/20 20:48 Ipratropium/Albuterol Sulfate 3 Ml Ampul.Neb IH 1 ampul TIDRT DAE Administration Budesonide 0.5 mg 12/16/20 20:00 12/16/20 20:48 Budesonide 0.5 Mg/2 Ml Nebu IH 0.5 mg Q12HRT DAE Administration Famotidine 20 mg 12/15/20 22:00 12/16/20 11:34 Famotidine 20 Mg/2 Ml Inj IV 20 mg BID DAE Administration Fentanyl 50 mcg 12/15/20 21:40 12/15/20 22:10 Fentanyl 100 Mcg/2 Ml Inj IV 50 mcg Q10MIN PRN Administration ANALGESIA Heparin Sodium (Porcine) 5,000 unit 12/15/20 22:00 12/16/20 14:16 Heparin 5,000 Unit/1 Ml Vial SUB-Q 5,000 unit Q8HR DAE Administration Hydralazine HCl 10 mg 12/15/20 21:58 Hydralazine 20 Mg/1 Ml Inj IV Q4H PRN Blood Pressure Hydrophilic Ointment 1 applic 12/15/20 21:40 Lip Therapy Vaseline TP Q2HR PRN Dry Lips Fentanyl Citrate 2,000 mcg in 100 mls @ 4.3 mls/hr 12/15/20 22:00 12/16/20 12:52 Fentanyl Drip Premix IV 3 mcg/kg/hr TITR DAE 12.9 mls/hr Titration Protocol 1 MCG/KG/HR Propofol 1,000 mg in 100 mls @ 2.58 mls/hr 12/15/20 22:00 12/15/20 22:14 Diprivan 10 Mg/Ml IV 15 mcg/kg/min TITR DAE 7.74 mls/hr Titration Protocol 5 MCG/KG/MIN Levofloxacin/Dextrose 750 mg in 150 mls @ 100 mls/hr 12/16/20 22:00 Levaquin 750mg/150ml IV Q24H [facility] Protocol Methylprednisolone Sodium Succinate 40 mg 12/15/20 22:00 12/16/20 14:16 Methylprednisolone Sod Succinate 40 Mg/1 Ml Inj IV 40 mg Q8HR DAE Administration Morphine Sulfate 2 mg 12/15/20 21:43 Morphine 2 Mg/1 Ml Inj IV Q4H PRN Pain, Moderate (4-6) Morphine Sulfate 4 mg 12/15/20 21:43 Morphine 4 Mg/1 Ml Inj IV Q4H PRN Pain , Severe (7-10) Multi-Ingred Cream/Lotion/Oil/Oint 1 applic 12/15/20 21:40 Mineral Oil/Petrolatum, White Ophth Oint 3.5 Gm OU Q4HR PRN Dry Eye(s) Ondansetron HCl 4 mg 12/15/20 21:43 Ondansetron 4 Mg/2 Ml Inj IV Q8H PRN Nausea And Vomiting Senna/Docusate Sodium 1 tab 12/15/20 22:00 12/16/20 11:34 Sennosides/Docusate Sodium 8.6/50 Mg Tab FEEDTUBE 1 tab BID DAE Administration Sodium Chloride 10 ml 12/15/20 22:00 12/16/20 11:11 Sodium Chloride 0.9% 10 Ml Flush Syringe IV 10 ml BID DAE Administration Sodium Chloride 10 ml 12/15/20 21:43 Sodium Chloride 0.9% 10 Ml Flush Syringe IV PRN PRN LINE FLUSH Nutrition/Malnutrition Assess - Dietary Evaluation Nutrition/Malnutrition Findings: Nutrition Notes Start: 12/16/20 07:49 Freq: Status: Active Protocol: Document 12/16/20 07:49 (Rec: 12/16/20 07:55 [email or web address]) Nutrition Notes Need for Assessment generated from: MD Order Initial or Follow up Assessment Current Diagnosis COPD,Hypertension,Respiratory Failure Other Pertinent Diagnosis COVID PUI Current Diet NPO Labs/Tests Na 136 Pertinent Medications Solu Medrol Propofol at 7.74 ml/hr Height 4 ft 11 in Weight 86 kg [place] Body Weight (kg) 43.18 BMI 38.2 Weight Status Obese Subjective/Other Information MD consult for diet education. Pt on vent and in ED. Per abd x-ray, pt may have ileus. Burn Absent Trauma Absent Current % PO Negligible Minimum of two criteria No physical signs of malnutrition #1 Nutrition Diagnosis Inadequate oral intake Etiology respiratory failure As Evidenced by Signs and Symptoms pt on vent and unable to consume PO Is patient on ventilator? Yes Is Patient Ambulatory and/or Out of Bed No REE-([facility]-confined to bed) 1607.484 Kcal/Kg value to use for calculation 14 Approximate Energy Requirements Using 1204 kcal/Kg Calculation Used for Recommendations Kcal/kg Additional Notes Protein: (>2g/kg IBW) >86g Fluid: 1ml/kcal or per MD Nutrition Intervention Change Diet Order: Start TF or extubate Nutrition Support: Recommened TF: Vital HP at 50 ml/hr Flsuh 50 ml q4h Kcal 1,200 Protein (gm) 105 Carbohydrates (gm) 134 Fat (gm) 28 Fluid (mL) 1,003 Goal #1 Start TF or extubate Anticipated Discharge Needs: Unable to determine at this time Follow-Up By: 12/18/20 Additional Comments FU for TF consult or extubation
[2020-12-16] MEDS: fentaNYL 100 MCG/2 ML INJ IV PRN (23:45)
--- NOTE | 2020-12-17 02:40 | Consultation ---
DATE OF CONSULTATION: 12/16/2020 PULMONARY CRITICAL CARE CONSULTATION CONSULTING PHYSICIAN: Dr. Yunier Kimbrough, emergency room physician. REASON FOR CONSULTATION: Acute on chronic hypoxemic and hypercapnic respiratory failure, on mechanical ventilatory support. CHIEF COMPLAINT AND HISTORY OF PRESENT ILLNESS: The patient is a 60-year-old female with past medical history significant amongst other things for a diagnosis of home oxygen dependent COPD, who presented to the emergency room yesterday complaining of shortness of breath and cough. It had been going on for few days. She denied fevers or chills. Denied nausea or vomiting. She denied any gross or streaky hemoptysis. She denies any sick contacts. She denied any contact with anyone with COVID-19 and she has received her COVID-19 vaccination. In the emergency room, she was in severe distress. Bilevel positive airway pressure ventilation therapy did not improve her symptoms and she was ultimately intubated. We are asked to assist with management. When I stopped by to see her, she was resting in bed. She was on the assist control mode of ventilation, active PRVC, AC, tidal volumes are 300, rate of 30 and I believe PEEP was 6 with O2 sats of 96%. With regards to tobacco use/abuse history, she is described as a former smoker. The above is as much of the history of presentation as I have. PAST MEDICAL HISTORY: Hypertension, chronic obstructive lung disease, protein calorie malnutrition. PAST SURGICAL HISTORY: Unknown. MEDICATIONS: She was on at the time I stopped by to see her were reviewed, pertinent medications include the following: Tylenol 650 mg per rectum q. 6 hours p.r.n. mild pain or fevers, DuoNeb nebulizer treatments nebulized q. 4 hours, Pepcid 20 mg IV b.i.d., fentanyl drip was going at 3 mcg/kg per hour, heparin 5000 units subcu q. 8 hours, p.r.n. hydralazine 10 mg IV q. 4 hours p.r.n. elevated blood pressure. Levaquin 750 mg IV daily, Solu-Medrol 40 mg IV q. 8 hours, morphine sulfate 2 mg IV every 4 hours p.r.n. moderate pain and 4 mg IV every 4 hours p.r.n. severe pain, Zofran 4 mg IV q. 8 hours p.r.n. nausea and vomiting. Propofol drip was going at 15 mcg per kilogram per minute, senna docusate 1 tablet p.o. b.i.d. All p.o. meds via the feeding tube. ALLERGIES: No known drug allergies. DIET: Cachectic looking lady. Acute weight loss or gain history is unknown. FAMILY AND SOCIAL HISTORY: Lives in the community, former tobacco abuse. Alcohol, illicit drug use or abuse history are unknown. FAMILY HISTORY: Otherwise unobtainable. REVIEW OF SYSTEMS: Unobtainable secondary to patient's medical and mental condition. Since she has been here, no gross hematochezia or melena, no gross hematuria, no hematemesis, no hemoptysis, no bloody tracheal secretions, no witnessed seizures. Review of systems otherwise unobtainable or as in body of history above. PHYSICAL EXAMINATION: VITAL SIGNS: On presentation, she was febrile, temperature 100.8 degrees Fahrenheit, pulse of 118, respiratory rate as high as 34, blood pressure 199/109 as high as 214/111, O2 sats were 99%, I believe that was on the above-mentioned ventilator settings. GENERAL: She is elderly and chronically ill-looking female. HEENT: Normocephalic, atraumatic on the mechanical ventilator without significant patient-ventilator dyssynchrony. HEAD, EYES, EARS, NOSE, THROAT: Anicteric. No conjunctival erythema. Oropharynx was moist. No gross jugular venous distention. Endotracheal tube was taped at the lips around 24 cm. Grossly, there were no palpable lymph nodes in the supraclavicular or submandibular lymph node chains. LUNGS: Auscultation of both lung doyle significant for diminished bilateral breath sounds, prolonged expiratory phase and bibasilar inspiratory rales, left greater than right. No active wheezing. HEART: Sounds 1 and 2 are heard. There were regular rate and rhythm at the time of my evaluation without overt rubs or murmurs. ABDOMEN: Soft, flat, bowel sounds are positive, nontender. No palpable hepatosplenomegaly. EXTREMITIES: Without overt digital clubbing or cyanosis. No pedal edema. Pedal pulses are 2+ bilaterally. NEUROLOGIC: Pupils are equal, round, about 1-2 mm, very sluggishly reactive to light. Extraocular muscle movements appeared intact as best as I could evaluate. She had spontaneous movements to all 4 extremities. She was sedated. SKIN: Poor turgor; however, without overt cellulitis or rash in the areas I examined. Please see the wound care nurses' notes for full description of her skin. PSYCHIATRIC: Mood and affect could not be assessed. She was sedated. LABORATORY DATA: From my review are as follows: Admission white cell count 5400, hemoglobin 10.8, hematocrit 34.0, platelet count 239. No band forms on the manual differential. INR 0.81. Arterial blood gas at presentation showed a pH of 7.18, pCO2 of 87, pO2 of 79 that was on 40% FiO2. This morning, arterial blood gas showed a pH of 7.36, pCO2 of 53, pO2 of 145 that was on 40% FIO2. Serum sodium was 138, potassium was 3.0 at presentation, now corrected, chloride was 96, bicarbonate 32, BUN 10, creatinine 0.3 and glucose was 95. Lactic acid level within normal limits. Magnesium was low at 1.6. Two sets of blood cultures, no growth to date. Chest x-ray has been reviewed. I have also reviewed the radiologist's interpretation. She appears to have what could be some clips in the right upper lobe area, overlying The medial clavicular head on the right. It appears to either be suture/staple or perhaps some extrinsic artifact. Otherwise, there is gross cardiomegaly considering the hyperinflation. She has flattening of both hemidiaphragms with mildly increased interstitial markings, may be chronic, may represent an element of pulmonary edema. A feeding tube is seen coursing through the mediastinum and ending below the diaphragm. No gross pneumothorax. No gross bony fracture that I can see. ASSESSMENT: 1. Acute on chronic hypoxemic and hypercapnic respiratory failure. 2. Acute chronic obstructive pulmonary disease exacerbation. 3. Hypertensive urgency at presentation. 4. Hypokalemia. 5. Hypomagnesemia. 6. Protein calorie malnutrition. PLAN: I have gone ahead to reduce the set rate. I will drop the set rate to 12 per minute, but also increase the tidal volumes from 300 to 400 to allow for improved ventilation. I will repeat the arterial blood gas in about four hours or so, just to ensure that she does not retain significantly and become unstable from hypercapnia. Ventilator-associated pneumonia bundle has been introduced. Oxygen will be weaned to keep sats greater than or equal to about 89-90%. Restrictive oxygen therapies acutely. I will add acting bronchodilators as well as inhaled corticosteroids and then I would change the DuoNeb treatments to t.i.d. Hopefully, we can begin daily spontaneous weaning trial from as early as tomorrow depending on how she does with reduced set minute volumes. Routine pulmonary hygiene, bronchodilators will be per the respiratory therapist. Enteral nutrition will be the feeding modality of choice. I have discontinued the propofol and we will go with fentanyl drip, so that we do not have iatrogenic causes for hypoventilation. She is appropriately on GI and DVT prophylaxis. She will be completing 5 days of empiric community-acquired pneumonia therapy in this lady with severe chronic obstructive pulmonary disease exacerbation. Consideration will be given to 2D echocardiogram depending on her records and her cardiac status during this admission. Again, she is on GI and DVT prophylaxis. Flu and pneumonia vaccination will be addressed per protocol. Thank you very much for the consult, Dr. Kimbrough. We will follow along and make further recommendations as picture progresses/becomes clearer. Care plan has been discussed with her Ancillary medical staff including the respiratory therapist and the nurse. At this time, I spent about 35-40 minutes of critical care time without overlap and excluding any procedural time that may be necessary. She is critically ill on life-sustaining interventions including mechanical ventilatory support at high risk of from cardiopulmonary system decompensation. TID: [id number] RECEIPT: [id number] AIRAM/BALDEMAR
--- NOTE | 2020-12-17 02:45 | XRay Report ---
CHEST 1 VIEW 12/17/2020 1:17 AM INDICATION / CLINICAL INFORMATION: follow up respiratory failure. COMPARISON: One view of the chest from 12/16/2020 FINDINGS: SUPPORT DEVICES: Unchanged. HEART / MEDIASTINUM: No significant abnormality. LUNGS / PLEURA: Unchanged bilateral interstitial prominence. No other significant pulmonary abnormali ty. No significant pleural effusion. No pneumothorax. ADDITIONAL FINDINGS: No significant additional findings. IMPRESSION: Stable appearance of the chest. Signer Name: Christos Emery MD Signed: 12/17/2020 2:41 AM Workstation Name: [id number]
[2020-12-17] MEDS: SENNOSIDES/DOCUSATE SODIUM 8.6/50 MG TAB FEEDTUBE SCH ×3 (06:18→22:50)
[2020-12-17] MEDS: HEPARIN 5,000 UNIT/1 ML VIAL SUB-Q SCH ×3 (06:32→22:50)
[2020-12-17] MEDS: methylPREDNISolone Sod Succinate 40 MG/1 ML INJ IV SCH ×2 (06:32→13:36)
[2020-12-17] MEDS: BUDESONIDE 0.5 MG/2 ML NEBU IH SCH ×2 (08:28→20:57)
[2020-12-17] MEDS: IPRATROPIUM/ALBUTEROL SULFATE 3 ML AMPUL.NEB IH SCH ×2 (08:28→13:47)
[2020-12-17 08:42] LABS: Hematocrit 30.5 % (30.3-42.9); Hemoglobin 9.7 gm/dl (10.1-14.3); Mean Corpuscular HGB Conc 32 % (30-34); Mean Corpuscular Volume 85 fl (79-97); Platelet Count 309 K/mm3 (140-440); Red Cell Distribution Width 16.4 % (13.2-15.2)
[2020-12-17 09:02] LABS: Blood Urea Nitrogen 34 mg/dL (7-17); Calcium 9.7 mg/dL (8.4-10.2); Hemolysis Index 1
[2020-12-17 09:05] LABS: BUN/Creatinine Ratio 85
--- NOTE | 2020-12-17 09:12 | Progress Note ---
Assessment and Plan Assessment and plan: This is a 60-year-old -[place] female with HTN, COPD, DM, ?AR, CAD, CHF on home oxygen 2L and former nicotine abuse admitted with COPD exacerbation with severe respiratory failure, hypomagnesemia and hypokalemia with consult to [facility]. PMH: HTN, COPD, former nicotine abuse, DM Neuro: Acute metabolic encephaloptahy (resolved) -fall/aspiration precautions -Restraints for safety -Sedated -RASS goal 0 to -1 -Daily SAT Cardio: SR, h/o HTN -PRN IV medication for BP control -Monitor BP per protocol -Resume home antihtn regimen and titrate as needed -PRN hydral and Labetalol Resp: Acute on Chronic Respiratory failure, COPD exacerbation, Home O2 NC 3 L, former smoker -extuabted 12/17 -supplemental oxygenation as needed -Pulmonary hygiene GI: NAD -CC cardiac diet -PPI -BR [place] -Aviod hypoglycemia : NAD -Trend BMP -[place] Endo: h/o DM -cc cardiac diet -SSI -Accucheck ACHS -avoid hypoglemia -hold home metformin ID: COPD exacerbation -CXR shows some interstitial opacities in B lungs -Levaquin 12/16-12/20 -Trend CBC -afebrile Heme: -VTE: heparin subq -SCDS to BLE while in bed -Trend CBC Lines: PIV, gloria Dispo: Transfer to floor The high probability of a clinically significant, sudden or life threatening deterioration of the [resp] system(s) required my full and direct attention, intervention and personal management. The aggregate critical care time was [60] minutes. This time is in addition to time spent performing reported procedures but includes the following: [x] Data Review and interpretation [x] Patient assessment and monitoring of vital signs [x] Documentation [x] Medication orders and management Disposition Plan: transfer to floor Total Time Spent with Patient (Minutes): 60 History Interval history: This is a 60-year-old -[place] female with HTN, COPD on home oxygen 2L and former nicotine abuse who presented to the ED on 12/15 with complains of SOB and productive cough with whiteish sputum for the past few days, n/v and received her COVID 19 vaccination. Upon arrival here in the emergency room patient was in severe respiratory distress and was placed on BiPAP initially and subsequently intubated after receiving nebulizing treatments and IV steroids with some improvement. Work-up in the emergency room showed labs significant for hypokalemia of 3.0, hypomagnesemia of 1.6 and chest x-ray revealed increased interstitial prominence with some interstitial opacities in bilateral lungs, Lungs hyperexpanded and no pneumothorax. Patient is being admitted to the hospitalist service with COPD exacerbation with severe respiratory failure, hypomagnesemia and hypokalemia with consult to [facility]. 12/16: remains intubated, [facility] attempted PS with repeat ABG in hopes extubation. K and Mg replaced. 12/17: to CCU, extuabted today, RSBI 40s on NC. Home meds restarted. Hospitalist Physical - Constitutional Vitals: Temp Pulse Resp BP Pulse Ox 99.2 F 82 18 145/84 95 12/17/20 09:04 12/17/20 08:28 12/17/20 08:28 12/17/20 08:11 12/17/20 08:48 General appearance: Present: no acute distress - EENT Eyes: Present: PERRL, EOM intact - Neck Neck: Present: normal ROM - Respiratory Respiratory effort: normal Respiratory: bilateral: wheezing - Cardiovascular Rhythm: regular Heart Sounds: Present: S1 & S2, gallop. Absent: systolic murmur, diastolic murmur - Extremities Extremities: no ischemia, pulses intact, pulses symmetrical, No edema, normal temperature, normal color, Full ROM Peripheral Pulses: within normal limits - Abdominal General gastrointestinal: soft, non-tender, non-distended, normal bowel sounds - Integumentary Integumentary: Present: warm, dry - Psychiatric Psychiatric: cooperative - Neurologic Neurologic: CNII-XII intact, no focal deficits, moves all extremities - Allied Health Allied health notes reviewed: nursing HEART Score - HEART Score Troponin: Troponin T < 0.010 ng/mL (0.00-0.029) 12/15/20 20:24 Results - Labs CBC & Chem 7: 12/17/20 08:06 12/17/20 08:06 Labs: Laboratory Last Values WBC 9.9 K/mm3 (4.5-11.0) 12/17/20 08:06 RBC 3.60 M/mm3 (3.65-5.03) L 12/17/20 08:06 Hgb 9.7 gm/dl (10.1-14.3) L 12/17/20 08:06 Hct 30.5 % (30.3-42.9) 12/17/20 08:06 MCV 85 fl (79-97) 12/17/20 08:06 MCH 27 pg (28-32) L 12/17/20 08:06 MCHC 32 % (30-34) 12/17/20 08:06 RDW 16.4 % (13.2-15.2) H 12/17/20 08:06 Plt Count 309 K/mm3 (140-440) 12/17/20 08:06 [place] % (Auto) [employer] Consultant 12/15/20 20:24 Baso % (Auto) [employer] Sales Consultant 12/15/20 20:24 Add Manual Diff Complete 12/16/20 04:13 Total Counted 100 12/16/20 04:13 Seg Neutrophils % [employer] Consultant 12/16/20 04:13 Seg Neuts % (Manual) 91.0 % (40.0-70.0) H 12/16/20 04:13 Lymphocytes % (Manual) 2.0 % (13.4-35.0) L 12/16/20 04:13 Monocytes % (Manual) 7.0 % (0.0-7.3) 12/16/20 04:13 Eosinophils % (Manual) 1.0 % (0.0-4.3) 12/15/20 20:24 Nucleated RBC % Not Reportable 12/16/20 04:13 Seg Neutrophils # Man 5.8 K/mm3 (1.8-7.7) 12/16/20 04:13 Band Neutrophils # 0.0 K/mm3 12/16/20 04:13 Lymphocytes # (Manual) 0.1 K/mm3 (1.2-5.4) L 12/16/20 04:13 Abs React Lymphs (Man) 0.0 K/mm3 12/16/20 04:13 Monocytes # (Manual) 0.4 K/mm3 (0.0-0.8) 12/16/20 04:13 Eosinophils # (Manual) 0.0 K/mm3 (0.0-0.4) 12/16/20 04:13 Basophils # (Manual) 0.0 K/mm3 (0.0-0.1) 12/16/20 04:13 Metamyelocytes # 0.0 K/mm3 12/16/20 04:13 Myelocytes # 0.0 K/mm3 12/16/20 04:13 Promyelocytes # 0.0 K/mm3 12/16/20 04:13 Blast Cells # 0.0 K/mm3 12/16/20 04:13 WBC Morphology Not Reportable 12/16/20 04:13 Hypersegmented Neuts Not Reportable 12/16/20 04:13 Hyposegmented Neuts Not Reportable 12/16/20 04:13 Hypogranular Neuts Not Reportable 12/16/20 04:13 Smudge Cells Not Reportable 12/16/20 04:13 Toxic Granulation Not Reportable 12/16/20 04:13 Toxic Vacuolation Not Reportable 12/16/20 04:13 Dohle Bodies Not Reportable 12/16/20 04:13 Pelger-Huet Anomaly Not Reportable 12/16/20 04:13 Clau Rods Not Reportable 12/16/20 04:13 Platelet Estimate Consistent w auto 12/16/20 04:13 Clumped Platelets Not Reportable 12/16/20 04:13 Plt Clumps, EDTA Not Reportable 12/16/20 04:13 Large Platelets Not Reportable 12/16/20 04:13 Giant Platelets Not Reportable 12/16/20 04:13 Platelet Satelliting Not Reportable 12/16/20 04:13 Plt Morphology Comment Not Reportable 12/16/20 04:13 RBC Morphology Not Reportable 12/16/20 04:13 Dimorphic RBCs Not Reportable 12/16/20 04:13 Polychromasia Not Reportable 12/16/20 04:13 Hypochromasia Not Reportable 12/16/20 04:13 Poikilocytosis Not Reportable 12/16/20 04:13 Anisocytosis 1+ 12/16/20 04:13 Microcytosis Not Reportable 12/16/20 04:13 Macrocytosis Not Reportable 12/16/20 04:13 Spherocytes Not Reportable 12/16/20 04:13 Pappenheimer Bodies Not Reportable 12/16/20 04:13 Sickle Cells Not Reportable 12/16/20 04:13 Target Cells Not Reportable 12/16/20 04:13 Tear Drop Cells Not Reportable 12/16/20 04:13 Ovalocytes Not Reportable 12/16/20 04:13 Helmet Cells Not Reportable 12/16/20 04:13 [place] Bodies Not Reportable 12/16/20 04:13 [place] Rings Not Reportable 12/16/20 04:13 [place] Cells Not Reportable 12/16/20 04:13 Bite Cells Not Reportable 12/16/20 04:13 Crenated Cell Not Reportable 12/16/20 04:13 Elliptocytes Not Reportable 12/16/20 04:13 Acanthocytes (Spur) Not Reportable 12/16/20 04:13 Rouleaux Not Reportable 12/16/20 04:13 Hemoglobin C Crystals Not Reportable 12/16/20 04:13 Schistocytes Not Reportable 12/16/20 04:13 Malaria parasites Not Reportable 12/16/20 04:13 Patric Bodies Not Reportable 12/16/20 04:13 Hem Pathologist Commnt No 12/16/20 04:13 PT 12.2 Sec. (12.2-14.9) 12/16/20 04:13 INR 0.85 (0.87-1.13) L 12/16/20 04:13 ABG pH 7.329 (7.320-7.450) 12/16/20 20:00 POC ABG pCO2 61.8 mmHg (32.0-48.0) H 12/16/20 20:00 POC ABG pO2 91.4 mmHg (83-108) 12/16/20 20:00 POC ABG HCO3 31.8 12/16/20 20:00 ABG O2 Saturation 96.7 (0-100) 12/16/20 20:00 POC ABG Base Excess 4.6 12/16/20 20:00 ABG Hemoglobin 10.6 (12.0-17.5) L 12/16/20 20:00 ABG Oxyhemoglobin 96.1 (94-98) 12/16/20 20:00 ABG Methemoglobin 0.3 (0.0-1.5) 12/16/20 20:00 ABG Sodium 134.7 mmol/L (136.0-145.0) L 12/16/20 20:00 ABG Potassium 4.0 mmol/L (3.40-4.50) 12/16/20 20:00 ABG Chloride 98.0 mmol/L (98-107) 12/16/20 20:00 ABG Glucose 126 mg/dL (65-95) H 12/16/20 20:00 Carboxyhemoglobin 0.3 (0.5-1.5) L 12/16/20 20:00 FiO2 % 35.0 12/16/20 20:00 Sodium 137 mmol/L (137-145) 12/17/20 08:06 Potassium 4.5 mmol/L (3.6-5.0) 12/17/20 08:06 Chloride 96.4 mmol/L (98-107) L 12/17/20 08:06 Carbon Dioxide 29 mmol/L (22-30) 12/17/20 08:06 Anion Gap 16 mmol/L 12/17/20 08:06 BUN 34 mg/dL (7-17) H 12/17/20 08:06 Creatinine 0.4 mg/dL (0.6-1.2) L 12/17/20 08:06 Estimated GFR > 60 ml/min 12/17/20 08:06 BUN/Creatinine Ratio 85 % 12/17/20 08:06 Glucose 101 mg/dL (65-100) H 12/17/20 08:06 POC Glucose 105 mg/dL (70-105) 12/17/20 05:14 Lactic Acid 0.70 mmol/L (0.7-2.0) 12/15/20 20:44 Calcium 9.7 mg/dL (8.4-10.2) 12/17/20 08:06 Magnesium 1.60 mg/dL (1.7-2.3) L 12/15/20 20:24 Total Creatine Kinase 45 units/L (30-135) 12/15/20 20:24 Troponin T < 0.010 ng/mL (0.00-0.029) 12/15/20 20:24 Arterial Blood Glucose 126 mg/dL (65-95) H 12/16/20 20:00 Arterial Blood Ionized Calcium 4.8 mg/dL (4.6-5.3) 12/16/20 20:00 Microbiology: Microbiology 12/15/20 20:44 Peripheral/Venous Blood Culture - Preliminary NO GROWTH AFTER 24 HOURS 12/15/20 20:44 Peripheral/Venous Blood Culture - Preliminary NO GROWTH AFTER 24 HOURS 12/15/20 22:46 Tracheal Aspirate Sputum Culture - Preliminary Robbins/IV: Voiding Method Indwelling Catheter Active Medications - Current Medications Current Medications: Generic Name Dose Route Start Last Admin Trade Name Freq PRN Reason Stop Dose Admin Acetaminophen 650 mg 12/15/20 21:43 Acetaminophen 650 Mg Rect Supp TN Q6H PRN Pain MILD(1-3)/Fever >100.5/DELGADO Albuterol/Ipratropium 1 ampul 12/16/20 20:00 12/17/20 08:28 Ipratropium/Albuterol Sulfate 3 Ml Ampul.Neb IH 1 ampul TIDRT DAE Administration Arformoterol Tartrate 15 mcg 12/17/20 09:15 Arformoterol 15 Mcg/2 Ml Nebu IH Q12HRT DAE Budesonide 0.5 mg 12/16/20 20:00 12/17/20 08:28 Budesonide 0.5 Mg/2 Ml Nebu IH 0.5 mg Q12HRT DAE Administration Diltiazem HCl 60 mg 12/17/20 09:00 Diltiazem 60 Mg Tab PO Q6HR DAE Famotidine 20 mg 12/17/20 10:00 Famotidine 20 Mg Tab PO QDAY DAE Heparin Sodium (Porcine) 5,000 unit 12/15/20 22:00 12/17/20 06:32 Heparin 5,000 Unit/1 Ml Vial SUB-Q 5,000 unit Q8HR DAE Administration Hydralazine HCl 10 mg 12/15/20 21:58 Hydralazine 20 Mg/1 Ml Inj IV Q4H PRN Blood Pressure Levofloxacin/Dextrose 750 mg in 150 mls @ 100 mls/hr 12/16/20 22:00 12/16/20 22:08 Levaquin 750mg/150ml IV 100 mls/hr Q24H DAE Administration Protocol Methylprednisolone Sodium Succinate 40 mg 12/15/20 22:00 12/17/20 06:32 Methylprednisolone Sod Succinate 40 Mg/1 Ml Inj IV 40 mg Q8HR DAE Administration Montelukast Sodium 10 mg 12/17/20 22:00 Montelukast 10 Mg Tab PO QHS DAE Morphine Sulfate 2 mg 12/15/20 21:43 Morphine 2 Mg/1 Ml Inj IV Q4H PRN Pain, Moderate (4-6) Morphine Sulfate 4 mg 12/15/20 21:43 Morphine 4 Mg/1 Ml Inj IV Q4H PRN Pain , Severe (7-10) Ondansetron HCl 4 mg 12/15/20 21:43 Ondansetron 4 Mg/2 Ml Inj IV Q8H PRN Nausea And Vomiting Senna/Docusate Sodium 1 tab 12/15/20 22:00 12/17/20 06:18 Sennosides/Docusate Sodium 8.6/50 Mg Tab FEEDTUBE Not Given BID DAE Sodium Chloride 10 ml 12/15/20 22:00 12/16/20 11:11 Sodium Chloride 0.9% 10 Ml Flush Syringe IV 10 ml BID DAE Administration Sodium Chloride 10 ml 12/15/20 21:43 Sodium Chloride 0.9% 10 Ml Flush Syringe IV PRN PRN LINE FLUSH Nutrition/Malnutrition Assess - Dietary Evaluation Nutrition/Malnutrition Findings: Nutrition Notes Start: 12/16/20 07:49 Freq: Status: Active Protocol: Document 12/16/20 07:49 (Rec: 12/16/20 07:55 [id number]) Nutrition Notes Need for Assessment generated from: MD Order Initial or Follow up Assessment Current Diagnosis COPD,Hypertension,Respiratory Failure Other Pertinent Diagnosis COVID PUI Current Diet NPO Labs/Tests Na 136 Pertinent Medications Solu Medrol Propofol at 7.74 ml/hr Height 4 ft 11 in Weight 86 kg [place] Body Weight (kg) 43.18 BMI 38.2 Weight Status Obese Subjective/Other Information MD consult for diet education. Pt on vent and in ED. Per abd x-ray, pt may have ileus. Burn Absent Trauma Absent Current % PO Negligible Minimum of two criteria No physical signs of malnutrition #1 Nutrition Diagnosis Inadequate oral intake Etiology respiratory failure As Evidenced by Signs and Symptoms pt on vent and unable to consume PO Is patient on ventilator? Yes Is Patient Ambulatory and/or Out of Bed No REE-([facility]-confined to bed) 1607.484 Kcal/Kg value to use for calculation 14 Approximate Energy Requirements Using 1204 kcal/Kg Calculation Used for Recommendations Kcal/kg Additional Notes Protein: (>2g/kg IBW) >86g Fluid: 1ml/kcal or per MD Nutrition Intervention Change Diet Order: Start TF or extubate Nutrition Support: Recommened TF: Vital HP at 50 ml/hr Flsuh 50 ml q4h Kcal 1,200 Protein (gm) 105 Carbohydrates (gm) 134 Fat (gm) 28 Fluid (mL) 1,003 Goal #1 Start TF or extubate Anticipated Discharge Needs: Unable to determine at this time Follow-Up By: 12/18/20 Additional Comments FU for TF consult or extubation
--- NOTE | 2020-12-17 09:46 | Event Note ---
Date: 12/17/20 Patient seen this AM following commands and texting on personal cellphone. RSBI 40s, air leak noted, CPAP trial ongoing. Patient extubated to NC 2L at 0845. RT at bedside. Patient deep and oral suctioning completed prior to removal of OETT. Air Cuff deflated. Patient voice noted to be raspy and weak at initial extubation and became strong with time. RN to complete bedside swallow eval, NGT removed also. Wheezes auscultated bilaterally and RT informed of need for albuterol, informed pt received treatment ~ 30 min prior. CCT: 30 min (not included in CCT already documented)
[2020-12-17] MEDS ORDERED: FAMOTIDINE 20 MG TAB PO SCH (10:00)
[2020-12-17] MEDS: ARFORMOTEROL 15 MCG/2 ML NEBU IH SCH ×2 (10:39→20:57)
[2020-12-17] MEDS: dilTIAZem 60 MG TAB PO SCH ×4 (10:49→23:57)
--- NOTE | 2020-12-17 14:22 | Progress Note ---
Assessment and Plan Acute on chronic hypoxemic and hypercapnic respiratory failure Acute chronic obstructive pulmonary disease exacerbation Hypertensive urgency Hypokalemia Hypomagnesemia Protein calorie malnutrition - doing better, passed SBT and exctubated - continue to wean supplemental oxygen to keep O2 sats > 88-90% - continue Bronchodilators (DIMA & LABA) with pulm hygiene per RT - continue systemic steroids with slow taper - continue inhaled corticosteroids - complete empiric CAP AB's - continue to avoid nephrotoxins, renally dose all medications - continue mobility protocols to prevent pressure ulcers - PT/OT as tolerated - Wound care per RN/WCT - continue accuchecks with glycemic control per SSI for target blood glucose < 180 mg/dL - continued tobacco abstinence strongly counseled at the bedside - home oxygen evaluation at discharge - GI & VTE prophylaxis - Flu & pneumovax per protocol - Pulmonary out patient follow up for PFTs and optimization of respiratory status - continue other care per attending / other consultants - prn analgesia per pain score ..... transfer to telemetry floor ... re-evaluate in am & prn Subjective Date of service: 12/17/20 Principal diagnosis: Ac on ch hypoxemic and hypercapnic resp failure; AE-COPD; HTNsive urgency Interval history: Patient is seen today for: Acute on chronic hypoxemic and hypercapnic respiratory failure; AE-COPD; HTNsive urgency; Protein calorie malnutrition Seen and examined at bedside; 24hour events reviewed; nursing and respiratory care staff consulted; no adverse overnight events reported to me; resting peacefully in bed; passed SBT and extubated Objective Vital Signs - 12hr 12/17/20 12/17/20 12/17/20 02:30 02:41 02:51 Temperature Pulse Rate 109 H 107 H 105 H Pulse Rate [ Anterior Bilateral Throughout] Pulse Rate [ From Monitor] Respiratory 11 L 11 L 11 L Rate Respiratory Rate [Anterior Bilateral Throughout] Blood Pressure 128/82 128/82 136/87 O2 Sat by Pulse 97 98 99 Oximetry 12/17/20 12/17/20 12/17/20 03:01 03:11 03:21 Temperature Pulse Rate 103 H 105 H 102 H Pulse Rate [ Anterior Bilateral Throughout] Pulse Rate [ From Monitor] Respiratory 13 10 L 10 L Rate Respiratory Rate [Anterior Bilateral Throughout] Blood Pressure 130/77 128/82 135/80 O2 Sat by Pulse 96 99 99 Oximetry 12/17/20 12/17/20 12/17/20 03:25 03:30 03:41 Temperature 98.8 F Pulse Rate 101 H 104 H Pulse Rate [ Anterior Bilateral Throughout] Pulse Rate [ From Monitor] Respiratory 11 L 10 L Rate Respiratory Rate [Anterior Bilateral Throughout] Blood Pressure 127/83 127/83 O2 Sat by Pulse 97 99 Oximetry 12/17/20 12/17/20 12/17/20 03:51 04:00 04:11 Temperature Pulse Rate 101 H 103 H 101 H Pulse Rate [ Anterior Bilateral Throughout] Pulse Rate [ 101 H From Monitor] Respiratory 11 L 11 L 10 L Rate Respiratory Rate [Anterior Bilateral Throughout] Blood Pressure 122/86 120/85 120/85 O2 Sat by Pulse 99 96 99 Oximetry 12/17/20 12/17/20 12/17/20 04:21 04:30 04:41 Temperature Pulse Rate 101 H 100 H 103 H Pulse Rate [ Anterior Bilateral Throughout] Pulse Rate [ From Monitor] Respiratory 11 L 11 L 10 L Rate Respiratory Rate [Anterior Bilateral Throughout] Blood Pressure 133/85 137/81 137/81 O2 Sat by Pulse 99 96 98 Oximetry 12/17/20 12/17/20 12/17/20 04:51 05:00 05:11 Temperature Pulse Rate 102 H 101 H 98 H Pulse Rate [ Anterior Bilateral Throughout] Pulse Rate [ From Monitor] Respiratory 10 L 10 L 12 Rate Respiratory Rate [Anterior Bilateral Throughout] Blood Pressure 135/79 131/85 131/85 O2 Sat by Pulse 99 97 99 Oximetry 12/17/20 12/17/20 12/17/20 05:21 05:30 05:41 Temperature Pulse Rate 100 H 96 H 100 H Pulse Rate [ Anterior Bilateral Throughout] Pulse Rate [ From Monitor] Respiratory 9 L 12 11 L Rate Respiratory Rate [Anterior Bilateral Throughout] Blood Pressure 131/83 126/80 131/83 O2 Sat by Pulse 99 96 96 Oximetry 12/17/20 12/17/20 12/17/20 05:51 06:00 06:11 Temperature Pulse Rate 98 H 97 H 96 H Pulse Rate [ Anterior Bilateral Throughout] Pulse Rate [ From Monitor] Respiratory 9 L 12 12 Rate Respiratory Rate [Anterior Bilateral Throughout] Blood Pressure 127/80 130/77 130/77 O2 Sat by Pulse 96 93 95 Oximetry 12/17/20 12/17/20 12/17/20 06:30 07:00 07:30 Temperature Pulse Rate 101 H 102 H 107 H Pulse Rate [ Anterior Bilateral Throughout] Pulse Rate [ From Monitor] Respiratory 12 10 L 16 Rate Respiratory Rate [Anterior Bilateral Throughout] Blood Pressure 135/78 142/91 147/91 O2 Sat by Pulse 89 93 92 Oximetry 12/17/20 12/17/20 12/17/20 08:00 08:11 08:28 Temperature Pulse Rate 102 H 110 H Pulse Rate [ 82 Anterior Bilateral Throughout] Pulse Rate [ From Monitor] Respiratory 16 Rate Respiratory 18 Rate [Anterior Bilateral Throughout] Blood Pressure 149/98 145/84 O2 Sat by Pulse 95 98 Oximetry 12/17/20 12/17/20 12/17/20 08:31 08:48 09:01 Temperature Pulse Rate 118 H 119 H Pulse Rate [ Anterior Bilateral Throughout] Pulse Rate [ From Monitor] Respiratory 22 22 Rate Respiratory Rate [Anterior Bilateral Throughout] Blood Pressure 179/113 188/115 O2 Sat by Pulse 92 95 89 Oximetry 12/17/20 12/17/20 12/17/20 09:04 09:30 10:00 Temperature 99.2 F Pulse Rate 114 H 113 H Pulse Rate [ Anterior Bilateral Throughout] Pulse Rate [ From Monitor] Respiratory 17 15 Rate Respiratory Rate [Anterior Bilateral Throughout] Blood Pressure 202/104 190/97 O2 Sat by Pulse 91 93 Oximetry 12/17/20 12/17/20 12/17/20 10:30 10:49 10:58 Temperature Pulse Rate 107 H 104 H 104 H Pulse Rate [ Anterior Bilateral Throughout] Pulse Rate [ From Monitor] Respiratory 16 Rate Respiratory Rate [Anterior Bilateral Throughout] Blood Pressure 194/92 194/92 194/92 O2 Sat by Pulse 94 Oximetry 12/17/20 12/17/20 12/17/20 11:00 11:30 12:00 Temperature 98.6 F Pulse Rate 102 H 94 H 91 H Pulse Rate [ Anterior Bilateral Throughout] Pulse Rate [ From Monitor] Respiratory 17 20 20 Rate Respiratory Rate [Anterior Bilateral Throughout] Blood Pressure 169/100 176/94 166/90 O2 Sat by Pulse 95 95 94 Oximetry 12/17/20 12/17/20 12/17/20 12:30 13:01 13:47 Temperature Pulse Rate 85 94 H Pulse Rate [ 104 H Anterior Bilateral Throughout] Pulse Rate [ From Monitor] Respiratory 21 22 Rate Respiratory 20 Rate [Anterior Bilateral Throughout] Blood Pressure 169/92 178/91 O2 Sat by Pulse 94 90 Oximetry Constitutional: no acute distress, other (elderly thin female with mildly increased respiratory effort at rest) Eyes: non-icteric ENT: oropharynx moist Neck: supple, no lymphadenopathy, no JVD Effort: mildly labored Ascultation: Bilateral: diminished breath sounds, wheezes (expiratory), other (prolonged expiratory phase) Percussion: Bilateral: not dull Cardiovascular: regular rate and rhythm Gastrointestinal: normoactive bowel sounds, soft, non-tender, non-distended Integumentary: normal Extremities: no cyanosis, no edema, pink and warm, pulses normal Neurologic: non-focal exam, pupils equal and round, CN II-XII normal, motor strength normal and Psychiatric: mood appropriate, affect normal CBC and BMP: 12/17/20 08:06 12/17/20 08:06 ABG, PT/INR, D-dimer: ABG ABG pH 7.329 (7.320-7.450) 12/16/20 20:00 POC ABG pCO2 61.8 mmHg (32.0-48.0) H 12/16/20 20:00 POC ABG pO2 91.4 mmHg (83-108) 12/16/20 20:00 POC ABG HCO3 31.8 12/16/20 20:00 ABG O2 Saturation 96.7 (0-100) 12/16/20 20:00 PT/INR, D-dimer PT 12.2 Sec. (12.2-14.9) 12/16/20 04:13 INR 0.85 (0.87-1.13) L 12/16/20 04:13 Abnormal lab findings: Abnormal Labs 12/15/20 12/15/20 12/15/20 20:24 20:24 20:24 RBC Hgb MCH 27 L RDW 16.3 H Seg Neuts % (Manual) Lymphocytes % (Manual) Monocytes % (Manual) 23.0 H Lymphocytes # (Manual) 0.9 L Monocytes # (Manual) 1.2 H PT 11.8 L INR 0.81 L ABG pH POC ABG pCO2 POC ABG pO2 ABG Hemoglobin ABG Oxyhemoglobin ABG Sodium ABG Potassium ABG Glucose Carboxyhemoglobin Sodium Potassium Chloride Carbon Dioxide BUN Creatinine Glucose POC Glucose Magnesium 1.60 L Arterial Blood Glucose 12/15/20 12/15/20 12/16/20 20:24 22:44 04:01 RBC Hgb MCH RDW Seg Neuts % (Manual) Lymphocytes % (Manual) Monocytes % (Manual) Lymphocytes # (Manual) Monocytes # (Manual) PT INR ABG pH 7.179 L POC ABG pCO2 87.2 H 52.7 H POC ABG pO2 78.7 L 145.1 H ABG Hemoglobin 10.4 L 10.0 L ABG Oxyhemoglobin 91.8 L 98.7 H ABG Sodium 132.4 L ABG Potassium 3.0 L ABG Glucose 144 H 127 H Carboxyhemoglobin 0.2 L Sodium Potassium 3.0 L Chloride 95.8 L Carbon Dioxide 32 H BUN Creatinine 0.3 L Glucose POC Glucose Magnesium Arterial Blood Glucose 144 H 127 H 12/16/20 12/16/20 12/16/20 04:13 04:13 04:13 RBC 3.54 L Hgb 9.6 L MCH 27 L RDW 16.1 H Seg Neuts % (Manual) 91.0 H Lymphocytes % (Manual) 2.0 L Monocytes % (Manual) Lymphocytes # (Manual) 0.1 L Monocytes # (Manual) PT INR 0.85 L ABG pH POC ABG pCO2 POC ABG pO2 ABG Hemoglobin ABG Oxyhemoglobin ABG Sodium ABG Potassium ABG Glucose Carboxyhemoglobin Sodium 136 L Potassium Chloride Carbon Dioxide BUN Creatinine 0.5 L D Glucose 128 H POC Glucose Magnesium Arterial Blood Glucose 12/16/20 12/16/20 12/17/20 20:00 21:21 00:01 RBC Hgb MCH RDW Seg Neuts % (Manual) Lymphocytes % (Manual) Monocytes % (Manual) Lymphocytes # (Manual) Monocytes # (Manual) PT INR ABG pH POC ABG pCO2 61.8 H POC ABG pO2 ABG Hemoglobin 10.6 L ABG Oxyhemoglobin ABG Sodium 134.7 L ABG Potassium ABG Glucose 126 H Carboxyhemoglobin 0.3 L Sodium Potassium Chloride Carbon Dioxide BUN Creatinine Glucose POC Glucose 125 H 112 H Magnesium Arterial Blood Glucose 126 H 12/17/20 12/17/20 12/17/20 08:06 08:06 08:06 RBC 3.60 L Hgb 9.7 L MCH 27 L RDW 16.4 H Seg Neuts % (Manual) Lymphocytes % (Manual) Monocytes % (Manual) Lymphocytes # (Manual) Monocytes # (Manual) PT INR ABG pH POC ABG pCO2 POC ABG pO2 ABG Hemoglobin ABG Oxyhemoglobin ABG Sodium ABG Potassium ABG Glucose Carboxyhemoglobin Sodium Potassium Chloride 96.4 L Carbon Dioxide BUN 34 H Creatinine 0.4 L Glucose 101 H POC Glucose Magnesium 2.80 H Arterial Blood Glucose 12/17/20 11:10 RBC Hgb MCH RDW Seg Neuts % (Manual) Lymphocytes % (Manual) Monocytes % (Manual) Lymphocytes # (Manual) Monocytes # (Manual) PT INR ABG pH POC ABG pCO2 POC ABG pO2 ABG Hemoglobin ABG Oxyhemoglobin ABG Sodium ABG Potassium ABG Glucose Carboxyhemoglobin Sodium Potassium Chloride Carbon Dioxide BUN Creatinine Glucose POC Glucose 120 H Magnesium Arterial Blood Glucose Chest x-ray: image reviewed (tubes and lines in good position) Allied health notes reviewed: nursing
[2020-12-17] MEDS: amLODIPine 10 MG TAB PO SCH (17:33)
[2020-12-17] MEDS ORDERED: methylPREDNISolone Sod Succinate 40 MG/1 ML INJ IV SCH (22:00)
[2020-12-17] MEDS: MONTELUKAST 10 MG TAB PO SCH (22:55)
[2020-12-18] MEDS: IPRATROPIUM/ALBUTEROL SULFATE 3 ML AMPUL.NEB IH SCH ×4 (00:42→22:01)
[2020-12-18] MEDS: HEPARIN 5,000 UNIT/1 ML VIAL SUB-Q SCH ×4 (06:19→21:40)
[2020-12-18] MEDS: dilTIAZem 60 MG TAB PO SCH ×3 (06:21→17:55)
[2020-12-18 06:35] LABS: Hematocrit 30.8 % (30.3-42.9); Hemoglobin 9.8 gm/dl (10.1-14.3); Mean Corpuscular HGB Conc 32 % (30-34); Mean Corpuscular Volume 85 fl (79-97); Platelet Count 276 K/mm3 (140-440); Red Blood Count 3.62 M/mm3 (3.65-5.03)
[2020-12-18 06:49] LABS: Blood Urea Nitrogen 20 mg/dL (7-17); Calcium 9.2 mg/dL (8.4-10.2); Hemolysis Index 2
[2020-12-18 06:52] LABS: BUN/Creatinine Ratio 67
--- NOTE | 2020-12-18 07:43 | Progress Note ---
Assessment and Plan Assessment and plan: This is a 60-year-old -[place] female with HTN, COPD, DM, ?ND, CAD, CHF on home oxygen 2L and former nicotine abuse admitted with COPD exacerbation with severe respiratory failure, hypomagnesemia and hypokalemia with consult to CCM. Downgraded to medical floor on 12/17. PMH: HTN, COPD, former nicotine abuse, DM Neuro: Acute metabolic encephaloptahy (resolved) Aox 4 on encounter Cardio: SR, h/o HTN -PRN IV medication for BP control -Monitor BP per protocol -Resume home antihtn regimen (amlodipine and diltiazem) and titrate as needed -PRN Labetalol Resp: Acute on Chronic Respiratory failure, COPD exacerbation, Home O2 NC 3 L, former smoker -extuabted 12/17 -supplemental oxygenation as needed -Pulmonary hygiene - resumed home brovana, singular. Continue budesonide nebs and duonebs tx. - continue prednisone 40 mg po daily total 5 day course. - continue zithromax 250 mg. total 5 day course. GI: NAD -CC cardiac diet -PPI -BR [place] -Aviod hypoglycemia : NAD -Trend BMP -[place] Endo: h/o DM -cc cardiac diet -SSI -Accucheck ACHS -avoid hypoglemia -hold home metformin ID: COPD exacerbation -CXR shows some interstitial opacities in B lungs - dc Levaquin, start azithromycin po. -Trend CBC -afebrile Heme: -VTE: heparin subq -SCDS to BLE while in bed -Trend CBC Dispo: will likey stay one additional night. Respiratory status improved. Will complete walking O2 test and likely set up patient for home oxygen. PT/OT consulted. CM consulted for discharge planning . History Interval history: Resting comfortably on encounter. She states she is breathing better today compared to yesterday. Patient is on 4 L nasal cannula. We discussed her home nebulizer regimen and the need for follow-up with Dr. Tucker Prado at the time of discharge. Hospitalist Physical - Physical exam Narrative exam: Constitutional: no acute distress, elderly female, on nasal cannula. non labored respirations. Eyes: non-icteric ENT: oropharynx moist Neck: supple, no lymphadenopathy, no JVD Ascultation: Bilateral: diminished breath sounds, wheezes (expiratory), other (prolonged expiratory phase) Percussion: Bilateral: not dull Cardiovascular: regular rate and rhythm Gastrointestinal: normoactive bowel sounds, soft, non-tender, non-distended Integumentary: normal Extremities: no cyanosis, no edema, pink and warm, pulses normal Neurologic: non-focal exam, pupils equal and round, CN II-XII normal, motor strength normal and Psychiatric: mood appropriate, affect normal - Constitutional Vitals: Temp Pulse Resp BP Pulse Ox 98.1 F 80 18 138/79 96 12/18/20 03:59 12/18/20 06:21 12/18/20 03:59 12/18/20 06:21 12/18/20 03:59 General appearance: Present: no acute distress HEART Score - HEART Score Troponin: Troponin T < 0.010 ng/mL (0.00-0.029) 12/15/20 20:24 Results - Labs CBC & Chem 7: 12/18/20 05:50 12/18/20 05:50 Labs: Laboratory Last Values WBC 7.1 K/mm3 (4.5-11.0) 12/18/20 05:50 RBC 3.62 M/mm3 (3.65-5.03) L 12/18/20 05:50 Hgb 9.8 gm/dl (10.1-14.3) L 12/18/20 05:50 Hct 30.8 % (30.3-42.9) 12/18/20 05:50 MCV 85 fl (79-97) 12/18/20 05:50 MCH 27 pg (28-32) L 12/18/20 05:50 MCHC 32 % (30-34) 12/18/20 05:50 RDW 16.0 % (13.2-15.2) H 12/18/20 05:50 Plt Count 276 K/mm3 (140-440) 12/18/20 05:50 [place] % (Auto) Operations Manager Station 12/15/20 20:24 Baso % (Auto) Operations Manager Station 12/15/20 20:24 Add Manual Diff Complete 12/16/20 04:13 Total Counted 100 12/16/20 04:13 Seg Neutrophils % Operations Manager Station 12/16/20 04:13 Seg Neuts % (Manual) 91.0 % (40.0-70.0) H 12/16/20 04:13 Lymphocytes % (Manual) 2.0 % (13.4-35.0) L 12/16/20 04:13 Monocytes % (Manual) 7.0 % (0.0-7.3) 12/16/20 04:13 Eosinophils % (Manual) 1.0 % (0.0-4.3) 12/15/20 20:24 Nucleated RBC % Not Reportable 12/16/20 04:13 Seg Neutrophils # Man 5.8 K/mm3 (1.8-7.7) 12/16/20 04:13 Band Neutrophils # 0.0 K/mm3 12/16/20 04:13 Lymphocytes # (Manual) 0.1 K/mm3 (1.2-5.4) L 12/16/20 04:13 Abs React Lymphs (Man) 0.0 K/mm3 12/16/20 04:13 Monocytes # (Manual) 0.4 K/mm3 (0.0-0.8) 12/16/20 04:13 Eosinophils # (Manual) 0.0 K/mm3 (0.0-0.4) 12/16/20 04:13 Basophils # (Manual) 0.0 K/mm3 (0.0-0.1) 12/16/20 04:13 Metamyelocytes # 0.0 K/mm3 12/16/20 04:13 Myelocytes # 0.0 K/mm3 12/16/20 04:13 Promyelocytes # 0.0 K/mm3 12/16/20 04:13 Blast Cells # 0.0 K/mm3 12/16/20 04:13 WBC Morphology Not Reportable 12/16/20 04:13 Hypersegmented Neuts Not Reportable 12/16/20 04:13 Hyposegmented Neuts Not Reportable 12/16/20 04:13 Hypogranular Neuts Not Reportable 12/16/20 04:13 Smudge Cells Not Reportable 12/16/20 04:13 Toxic Granulation Not Reportable 12/16/20 04:13 Toxic Vacuolation Not Reportable 12/16/20 04:13 Dohle Bodies Not Reportable 12/16/20 04:13 Pelger-Huet Anomaly Not Reportable 12/16/20 04:13 Lcau Rods Not Reportable 12/16/20 04:13 Platelet Estimate Consistent w auto 12/16/20 04:13 Clumped Platelets Not Reportable 12/16/20 04:13 Plt Clumps, EDTA Not Reportable 12/16/20 04:13 Large Platelets Not Reportable 12/16/20 04:13 Giant Platelets Not Reportable 12/16/20 04:13 Platelet Satelliting Not Reportable 12/16/20 04:13 Plt Morphology Comment Not Reportable 12/16/20 04:13 RBC Morphology Not Reportable 12/16/20 04:13 Dimorphic RBCs Not Reportable 12/16/20 04:13 Polychromasia Not Reportable 12/16/20 04:13 Hypochromasia Not Reportable 12/16/20 04:13 Poikilocytosis Not Reportable 12/16/20 04:13 Anisocytosis 1+ 12/16/20 04:13 Microcytosis Not Reportable 12/16/20 04:13 Macrocytosis Not Reportable 12/16/20 04:13 Spherocytes Not Reportable 12/16/20 04:13 Pappenheimer Bodies Not Reportable 12/16/20 04:13 Sickle Cells Not Reportable 12/16/20 04:13 Target Cells Not Reportable 12/16/20 04:13 Tear Drop Cells Not Reportable 12/16/20 04:13 Ovalocytes Not Reportable 12/16/20 04:13 Helmet Cells Not Reportable 12/16/20 04:13 Robertson-Huttig Bodies Not Reportable 12/16/20 04:13 [place] Rings Not Reportable 12/16/20 04:13 D Hanis Cells Not Reportable 12/16/20 04:13 Bite Cells Not Reportable 12/16/20 04:13 Crenated Cell Not Reportable 12/16/20 04:13 Elliptocytes Not Reportable 12/16/20 04:13 Acanthocytes (Spur) Not Reportable 12/16/20 04:13 Rouleaux Not Reportable 12/16/20 04:13 Hemoglobin C Crystals Not Reportable 12/16/20 04:13 Schistocytes Not Reportable 12/16/20 04:13 Malaria parasites Not Reportable 12/16/20 04:13 Patric Bodies Not Reportable 12/16/20 04:13 Hem Pathologist Commnt No 12/16/20 04:13 PT 12.2 Sec. (12.2-14.9) 12/16/20 04:13 INR 0.85 (0.87-1.13) L 12/16/20 04:13 ABG pH 7.329 (7.320-7.450) 12/16/20 20:00 POC ABG pCO2 61.8 mmHg (32.0-48.0) H 12/16/20 20:00 POC ABG pO2 91.4 mmHg (83-108) 12/16/20 20:00 POC ABG HCO3 31.8 12/16/20 20:00 ABG O2 Saturation 96.7 (0-100) 12/16/20 20:00 POC ABG Base Excess 4.6 12/16/20 20:00 ABG Hemoglobin 10.6 (12.0-17.5) L 12/16/20 20:00 ABG Oxyhemoglobin 96.1 (94-98) 12/16/20 20:00 ABG Methemoglobin 0.3 (0.0-1.5) 12/16/20 20:00 ABG Sodium 134.7 mmol/L (136.0-145.0) L 12/16/20 20:00 ABG Potassium 4.0 mmol/L (3.40-4.50) 12/16/20 20:00 ABG Chloride 98.0 mmol/L (98-107) 12/16/20 20:00 ABG Glucose 126 mg/dL (65-95) H 12/16/20 20:00 Carboxyhemoglobin 0.3 (0.5-1.5) L 12/16/20 20:00 FiO2 % 35.0 12/16/20 20:00 Sodium 133 mmol/L (137-145) L 12/18/20 05:50 Potassium 4.0 mmol/L (3.6-5.0) 12/18/20 05:50 Chloride 93.0 mmol/L (98-107) L 12/18/20 05:50 Carbon Dioxide 32 mmol/L (22-30) H 12/18/20 05:50 Anion Gap 12 mmol/L 12/18/20 05:50 BUN 20 mg/dL (7-17) H 12/18/20 05:50 Creatinine 0.3 mg/dL (0.6-1.2) L 12/18/20 05:50 Estimated GFR > 60 ml/min 12/18/20 05:50 BUN/Creatinine Ratio 67 % 12/18/20 05:50 Glucose 156 mg/dL (65-100) H 12/18/20 05:50 POC Glucose 118 mg/dL (70-105) H 12/18/20 06:20 Lactic Acid 0.70 mmol/L (0.7-2.0) 12/15/20 20:44 Calcium 9.2 mg/dL (8.4-10.2) 12/18/20 05:50 Magnesium 2.80 mg/dL (1.7-2.3) H 12/17/20 08:06 Total Creatine Kinase 45 units/L (30-135) 12/15/20 20:24 Troponin T < 0.010 ng/mL (0.00-0.029) 12/15/20 20:24 Arterial Blood Glucose 126 mg/dL (65-95) H 12/16/20 20:00 Arterial Blood Ionized Calcium 4.8 mg/dL (4.6-5.3) 12/16/20 20:00 Microbiology: Microbiology 12/15/20 20:44 Peripheral/Venous Blood Culture - Preliminary NO GROWTH AFTER 48 HOURS 12/15/20 20:44 Peripheral/Venous Blood Culture - Preliminary NO GROWTH AFTER 48 HOURS 12/15/20 22:46 Tracheal Aspirate Sputum Culture - Preliminary Robbins/IV: Voiding Method Bedpan Active Medications - Current Medications Current Medications: Generic Name Dose Route Start Last Admin Trade Name Freq PRN Reason Stop Dose Admin Acetaminophen 650 mg 12/15/20 21:43 Acetaminophen 650 Mg Rect Supp W[place] Q6H PRN Pain MILD(1-3)/Fever >100.5/DELGADO Albuterol/Ipratropium 1 ampul 12/16/20 20:00 12/18/20 00:42 Ipratropium/Albuterol Sulfate 3 Ml Ampul.Neb IH Not Given TIDRT DAE Amlodipine Besylate 10 mg 12/17/20 16:00 12/17/20 17:33 Amlodipine 10 Mg Tab PO 10 mg QDAY DAE Administration Arformoterol Tartrate 15 mcg 12/17/20 09:15 12/17/20 20:57 Arformoterol 15 Mcg/2 Ml Nebu IH 15 mcg Q12HRT DAE Administration Budesonide 0.5 mg 12/16/20 20:00 12/17/20 20:57 Budesonide 0.5 Mg/2 Ml Nebu IH 0.5 mg Q12HRT DAE Administration Diltiazem HCl 60 mg 12/17/20 09:00 12/18/20 06:21 Diltiazem 60 Mg Tab PO 60 mg Q6HR DAE Administration Heparin Sodium (Porcine) 5,000 unit 12/15/20 22:00 12/18/20 06:19 Heparin 5,000 Unit/1 Ml Vial SUB-Q 5,000 unit Q8HR DAE Administration Levofloxacin/Dextrose 750 mg in 150 mls @ 100 mls/hr 12/16/20 22:00 12/17/20 22:55 Levaquin 750mg/150ml IV 12/20/20 23:29 100 mls/hr Q24H DAE Administration Protocol Labetalol HCl 10 mg 12/17/20 11:30 12/17/20 19:33 Labetalol 20 Mg/4 Ml Inj IV 10 mg Q2H PRN Administration Hypertension Methylprednisolone Sodium Succinate 40 mg 12/17/20 22:00 12/17/20 22:50 Methylprednisolone Sod Succinate 40 Mg/1 Ml Inj IV 40 mg Q12HR DAE Administration Montelukast Sodium 10 mg 12/17/20 22:00 12/17/20 22:55 Montelukast 10 Mg Tab PO 10 mg QHS DAE Administration Senna/Docusate Sodium 1 tab 12/15/20 22:00 12/17/20 22:50 Sennosides/Docusate Sodium 8.6/50 Mg Tab FEEDTUBE 1 tab BID DAE Administration Sodium Chloride 10 ml 12/15/20 22:00 12/17/20 22:50 Sodium Chloride 0.9% 10 Ml Flush Syringe IV 10 ml BID DAE Administration Sodium Chloride 10 ml 12/15/20 21:43 Sodium Chloride 0.9% 10 Ml Flush Syringe IV PRN PRN LINE FLUSH Nutrition/Malnutrition Assess - Dietary Evaluation Nutrition/Malnutrition Findings: Nutrition Notes Start: 12/16/20 07:49 Freq: Status: Active Protocol: Document 12/17/20 09:38 CW (Rec: 12/17/20 09:45 CW [email or web address]) Nutrition Notes Need for Assessment generated from: MD Order Initial or Follow up Brief Note Current Diagnosis COPD,Hypertension,Respiratory Failure Other Pertinent Diagnosis COVID PUI, Respiratory Acidosis, Current Diet NPO Labs/Tests BUN 34 Pertinent Medications Pulmicort Solumedrol Height 4 ft 11 in Weight 86 kg [place] Body Weight (kg) 43.18 BMI 38.2 Subjective/Other Information MD Consult for write manage TF . Pt extubated today. Will await POC for PO feeding. Nutrition Intervention Change Diet Order: Initiate PO diet when medically feasible Goal #1 Meet at least 75% of EER via PO when medically feasible Anticipated Discharge Needs: Unable to determine at this time Follow-Up By: 12/19/20 Additional Comments F/U POC/intakes
[2020-12-18] MEDS: BUDESONIDE 0.5 MG/2 ML NEBU IH SCH ×2 (08:06→22:00)
[2020-12-18] MEDS: ARFORMOTEROL 15 MCG/2 ML NEBU IH SCH ×2 (08:06→22:00)
[2020-12-18] MEDS: predniSONE 20 MG TAB PO SCH (10:44)
[2020-12-18] MEDS: AZITHROMYCIN 250 MG TAB PO SCH (10:44)
[2020-12-18] MEDS: SENNOSIDES/DOCUSATE SODIUM 8.6/50 MG TAB FEEDTUBE SCH ×3 (10:44→21:40)
[2020-12-18] MEDS: amLODIPine 10 MG TAB PO SCH (10:44)
--- NOTE | 2020-12-18 13:32 | Progress Note ---
Assessment and Plan 60-year-old -Iranian female with known history of hypertension, COPD on home oxygen presenting to the emergency room today complaining of shortness of breath and cough which has been ongoing for the past few days. Patient denies a ny fever or chills, denies any chest pain, no headache or dizziness, but has had some nausea and vomiting. She has had some cough which has been productive of some whitish sputum. Patient denies any sick contacts or recent travel. Denies any contact with anyone with COVID-19. She has received COVID-19 vaccination. Upon arrival here in the emergency room today patient was seen severe respirato ry distress and was placed on BiPAP initially and subsequently intubated. She received some nebulizing treatments and IV steroids with some improvement. Work-up in the emergency room today, labs were significant for hypokalemia of 3.0, hypomagnesemia of 1.6 Chest x-ray reveals increased interstitial prominence with some interstitial opacities in bilateral lungs. Lungs hyperexpanded and no pneumothorax. Patient is being admitted with COPD exacerbation with severe respiratory failure, hypomagnesemia and hypokalemia. Patient also has history of AF, allergic rhinitis and GERD.. According to my office notes patient allergic to Lisinopril, seroquel and quetiapine. Patient has history of smoking 2 packsx 40 years. Stopped smoking 5 years ago. No history of alcohol or drug abuse. Patient not working . Patient not . 1 child. Patient alert, awake. Receiving aerosol treatment. Patient is on 2 litres o2. O2 saturation 94%. Patient having mild increased work of breathing at rest. Patient afebrile. No leukocytosis. Patients chest xray done 12/17/20 Unchanged bilateral interstitial prominence. No other significant pulmonary abnormality. No significant pleural effusion. No pneumothorax. Patient is on Albuterol/atrovent aerosol treatments, PO Prednisone, S/C Heparin, Monoleukast, zithromax. Recommend GI prophylaxis. - Patient Problems (1) Acute respiratory failure Current Visit: Yes Status: Acute Plan to address problem: O2 2 litres via nasal canula. Albuterol/atrovent aerosol treatments Continue Prednisone Continue S/C Lovenox. Recommend GI Prophylaxis. (2) COPD with acute exacerbation Current Visit: Yes Status: Acute Plan to address problem: O2 2 litres via nasal canula. Albuterol/atrovent aerosol treatments Continue Prednisone Continue S/C Lovenox. Recommend GI Prophylaxis. Continue Zithromax. (3) Hypertensive urgency Current Visit: Yes Status: Acute Plan to address problem: Management as per primary care. (4) Hypokalemia Current Visit: Yes Status: Acute Plan to address problem: Corrected. To days K+ is 4.0. Subjective Date of service: 12/18/20 Principal diagnosis: Ac on ch hypoxemic and hypercapnic resp failure; AE-COPD; HTNsive urgency Interval history: 60-year-old -Iranian female with known history of hypertension, COPD on home oxygen presenting to the emergency room today complaining of shortness of breath and cough which has been ongoing for the past few days. Patient denies any fever or chills, denies any chest pain, no headache or dizziness, but has had some nausea and vomiting. She has had some cough which has been productive of some whitish sputum. Patient denies any sick contacts or recent travel. Denies any contact with anyone with COVID-19. She has received COVID-19 vaccination. Upon arrival here in the emergency room today patient was seen severe respiratory distress and was placed on BiPAP initially and subsequently intu bated. She received some nebulizing treatments and IV steroids with some improvement. Work-up in the emergency room today, labs were significant for hypokalemia of 3.0, hypomagnesemia of 1.6 Chest x-ray reveals increased interstitial prominence with some interstitial opacities in bilateral lungs. Lungs hyperexpanded and no pneumothorax. Patient is being admitted with COPD exacerbation with severe respiratory failure, hypomagnesemia and hypokalemia. Patient also has history of AF, allergic rhinitis and GERD.. According to my office notes patient allergic to Lisinopril, seroquel and quetiapine. Patient has history of smoking 2 packsx 40 years. Stopped smoking 5 years ago. No history of alcohol or drug abuse. Patient not working . Patient not . 1 child. Patient alert, awake. Receiving aerosol treatment. Patient is on 2 litres o2. O2 saturation 94%. Patient having mild increased work of breathing at rest. Patient afebrile. No leukocytosis. Patients chest xray done 12/17/20 Unchanged bilateral interstitial prominence. No other significant pulmonary abnormality. No significant pleural effusion. No pneumothorax. Patient is on Albuterol/atrovent aerosol treatments, PO Prednisone, S/C Heparin, Monoleukast, zithromax. Recommend GI prophylaxis. Objective Vital Signs - 12hr 12/18/20 12/18/20 12/18/20 03:59 05:00 06:21 Temperature 98.1 F Pulse Rate 79 80 80 Pulse Rate [ Anterior Bilateral Throughout] Respiratory 18 Rate Respiratory Rate [Anterior Bilateral Throughout] Blood Pressure 138/77 138/79 O2 Sat by Pulse 96 Oximetry 12/18/20 12/18/20 08:00 12:02 Temperature Pulse Rate 71 Pulse Rate [ 74 Anterior Bilateral Throughout] Respiratory 20 Rate Respiratory 15 Rate [Anterior Bilateral Throughout] Blood Pressure O2 Sat by Pulse 94 Oximetry Constitutional: no acute distress, alert, other (elderly thin female with mildly increased respiratory effort at rest) Eyes: non-icteric ENT: oropharynx moist Neck: supple, no lymphadenopathy, no JVD Effort: mildly labored Ascultation: Bilateral: diminished breath sounds, wheezes (expiratory), other (prolonged expiratory phase) Percussion: Bilateral: not dull Cardiovascular: regular rate and rhythm Gastrointestinal: normoactive bowel sounds, soft, non-tender, non-distended Integumentary: normal Extremities: no cyanosis, no edema, pink and warm, pulses normal Neurologic: non-focal exam, pupils equal and round, CN II-XII normal, motor strength normal and Psychiatric: mood appropriate, affect normal CBC and BMP: 12/18/20 05:50 12/18/20 05:50 ABG, PT/INR, D-dimer: ABG ABG pH 7.329 (7.320-7.450) 12/16/20 20:00 POC ABG pCO2 61.8 mmHg (32.0-48.0) H 12/16/20 20:00 POC ABG pO2 91.4 mmHg (83-108) 12/16/20 20:00 POC ABG HCO3 31.8 12/16/20 20:00 ABG O2 Saturation 96.7 (0-100) 12/16/20 20:00 PT/INR, D-dimer PT 12.2 Sec. (12.2-14.9) 12/16/20 04:13 INR 0.85 (0.87-1.13) L 12/16/20 04:13 Abnormal lab findings: Abnormal Labs 12/15/20 12/15/20 12/15/20 20:24 20:24 20:24 RBC Hgb MCH 27 L RDW 16.3 H Seg Neuts % (Manual) Lymphocytes % (Manual) Monocytes % (Manual) 23.0 H Lymphocytes # (Manual) 0.9 L Monocytes # (Manual) 1.2 H PT 11.8 L INR 0.81 L ABG pH POC ABG pCO2 POC ABG pO2 ABG Hemoglobin ABG Oxyhemoglobin ABG Sodium ABG Potassium ABG Glucose Carboxyhemoglobin Sodium Potassium Chloride Carbon Dioxide BUN Creatinine Glucose POC Glucose Magnesium 1.60 L Arterial Blood Glucose 12/15/20 12/15/20 12/16/20 20:24 22:44 04:01 RBC Hgb MCH RDW Seg Neuts % (Manual) Lymphocytes % (Manual) Monocytes % (Manual) Lymphocytes # (Manual) Monocytes # (Manual) PT INR ABG pH 7.179 L POC ABG pCO2 87.2 H 52.7 H POC ABG pO2 78.7 L 145.1 H ABG Hemoglobin 10.4 L 10.0 L ABG Oxyhemoglobin 91.8 L 98.7 H ABG Sodium 132.4 L ABG Potassium 3.0 L ABG Glucose 144 H 127 H Carboxyhemoglobin 0.2 L Sodium Potassium 3.0 L Chloride 95.8 L Carbon Dioxide 32 H BUN Creatinine 0.3 L Glucose POC Glucose Magnesium Arterial Blood Glucose 144 H 127 H 12/16/20 12/16/20 12/16/20 04:13 04:13 04:13 RBC 3.54 L Hgb 9.6 L MCH 27 L RDW 16.1 H Seg Neuts % (Manual) 91.0 H Lymphocytes % (Manual) 2.0 L Monocytes % (Manual) Lymphocytes # (Manual) 0.1 L Monocytes # (Manual) PT INR 0.85 L ABG pH POC ABG pCO2 POC ABG pO2 ABG Hemoglobin ABG Oxyhemoglobin ABG Sodium ABG Potassium ABG Glucose Carboxyhemoglobin Sodium 136 L Potassium Chloride Carbon Dioxide BUN Creatinine 0.5 L D Glucose 128 H POC Glucose Magnesium Arterial Blood Glucose 12/16/20 12/16/20 12/17/20 20:00 21:21 00:01 RBC Hgb MCH RDW Seg Neuts % (Manual) Lymphocytes % (Manual) Monocytes % (Manual) Lymphocytes # (Manual) Monocytes # (Manual) PT INR ABG pH POC ABG pCO2 61.8 H POC ABG pO2 ABG Hemoglobin 10.6 L ABG Oxyhemoglobin ABG Sodium 134.7 L ABG Potassium ABG Glucose 126 H Carboxyhemoglobin 0.3 L Sodium Potassium Chloride Carbon Dioxide BUN Creatinine Glucose POC Glucose 125 H 112 H Magnesium Arterial Blood Glucose 126 H 12/17/20 12/17/20 12/17/20 08:06 08:06 08:06 RBC 3.60 L Hgb 9.7 L MCH 27 L RDW 16.4 H Seg Neuts % (Manual) Lymphocytes % (Manual) Monocytes % (Manual) Lymphocytes # (Manual) Monocytes # (Manual) PT INR ABG pH POC ABG pCO2 POC ABG pO2 ABG Hemoglobin ABG Oxyhemoglobin ABG Sodium ABG Potassium ABG Glucose Carboxyhemoglobin Sodium Potassium Chloride 96.4 L Carbon Dioxide BUN 34 H Creatinine 0.4 L Glucose 101 H POC Glucose Magnesium 2.80 H Arterial Blood Glucose 12/17/20 12/17/20 12/17/20 11:10 18:07 23:39 RBC Hgb MCH RDW Seg Neuts % (Manual) Lymphocytes % (Manual) Monocytes % (Manual) Lymphocytes # (Manual) Monocytes # (Manual) PT INR ABG pH POC ABG pCO2 POC ABG pO2 ABG Hemoglobin ABG Oxyhemoglobin ABG Sodium ABG Potassium ABG Glucose Carboxyhemoglobin Sodium Potassium Chloride Carbon Dioxide BUN Creatinine Glucose POC Glucose 120 H 153 H 183 H Magnesium Arterial Blood Glucose 12/18/20 12/18/20 12/18/20 05:50 05:50 06:20 RBC 3.62 L Hgb 9.8 L MCH 27 L RDW 16.0 H Seg Neuts % (Manual) Lymphocytes % (Manual) Monocytes % (Manual) Lymphocytes # (Manual) Monocytes # (Manual) PT INR ABG pH POC ABG pCO2 POC ABG pO2 ABG Hemoglobin ABG Oxyhemoglobin ABG Sodium ABG Potassium ABG Glucose Carboxyhemoglobin Sodium 133 L Potassium Chloride 93.0 L Carbon Dioxide 32 H BUN 20 H Creatinine 0.3 L Glucose 156 H POC Glucose 118 H Magnesium Arterial Blood Glucose 12/18/20 12/18/20 07:59 12:52 RBC Hgb MCH RDW Seg Neuts % (Manual) Lymphocytes % (Manual) Monocytes % (Manual) Lymphocytes # (Manual) Monocytes # (Manual) PT INR ABG pH POC ABG pCO2 POC ABG pO2 ABG Hemoglobin ABG Oxyhemoglobin ABG Sodium ABG Potassium ABG Glucose Carboxyhemoglobin Sodium Potassium Chloride Carbon Dioxide BUN Creatinine Glucose POC Glucose 132 H 177 H Magnesium Arterial Blood Glucose Chest x-ray: report reviewed, image reviewed Additional Studies: CHEST 1 VIEW 12/17/2020 1:17 AM INDICATION / CLINICAL INFORMATION: follow up respiratory failure. COMPARISON: One view of the chest from 12/16/2020 FINDINGS: SUPPORT DEVICES: Unchanged. HEART / MEDIASTINUM: No significant abnormality. LUNGS / PLEURA: Unchanged bilateral interstitial prominence. No other significant pulmonary abnormality. No significant pleural effusion. No pneumothorax. ADDITIONAL FINDINGS: No significant additional findings. IMPRESSION: Stable appearance of the chest. Allied health notes reviewed: nursing
[2020-12-18] MEDS: MONTELUKAST 10 MG TAB PO SCH ×2 (20:52→21:40)
[2020-12-19] MEDS: dilTIAZem 60 MG TAB PO SCH ×5 (01:08→17:36)
[2020-12-19] MEDS: guaiFENesin DM 200/20 MG ORAL LIQD 10 ML PO PRN ×3 (01:08→16:00)
[2020-12-19] MEDS: HEPARIN 5,000 UNIT/1 ML VIAL SUB-Q SCH ×3 (04:33→14:05)
[2020-12-19] MEDS: BUDESONIDE 0.5 MG/2 ML NEBU IH SCH (08:20)
[2020-12-19] MEDS: ARFORMOTEROL 15 MCG/2 ML NEBU IH SCH (08:25)
[2020-12-19] MEDS: IPRATROPIUM/ALBUTEROL SULFATE 3 ML AMPUL.NEB IH SCH ×2 (08:30→13:39)
[2020-12-19] MEDS: AZITHROMYCIN 250 MG TAB PO SCH (09:52)
[2020-12-19] MEDS: SENNOSIDES/DOCUSATE SODIUM 8.6/50 MG TAB FEEDTUBE SCH (09:52)
[2020-12-19] MEDS: amLODIPine 10 MG TAB PO SCH (09:52)
[2020-12-19] MEDS: predniSONE 20 MG TAB PO SCH (09:52)
--- NOTE | 2020-12-19 14:46 | Progress Note ---
Assessment and Plan Acute on chronic hypoxemic and hypercapnic respiratory failure Acute chronic obstructive pulmonary disease exacerbation Hypertensive urgency Hypokalemia Hypomagnesemia Protein calorie malnutrition - prn antitussive's - continue systemic steroids with slow taper - consider mucomyst nebs - continue care as below otherwise; - continue to wean supplemental oxygen to keep O2 sats > 88-90% - continue Bronchodilators (DIMA & LABA) with pulm hygiene per RT - continue inhaled corticosteroids - complete empiric CAP AB's - continue to avoid nephrotoxins, renally dose all medications - continue mobility protocols to prevent pressure ulcers - PT/OT as tolerated - Wound care per RN/WCT - continue accuchecks with glycemic control per SSI for target blood glucose < 180 mg/dL - continued tobacco abstinence strongly counseled at the bedside - home oxygen evaluation at discharge - GI & VTE prophylaxis - Flu & pneumovax per protocol - Pulmonary out patient follow up for PFTs and optimization of respiratory status - continue other care per attending / other consultants - prn analgesia per pain score ... re-evaluate in am & prn Subjective Date of service: 12/19/20 Principal diagnosis: Ac on ch hypoxemic and hypercapnic resp failure; AE-COPD; HTNsive urgency Interval history: Patient is seen today for: Acute on chronic hypoxemic and hypercapnic respiratory failure; AE-COPD; HTNsive urgency; Protein calorie malnutrition Seen and examined at bedside; 24hour events reviewed; nursing and respiratory care staff consulted; no adverse overnight events reported to me; resting peacefully in bed; feels better; breathing easier; + persistent cough with difficult to expectorate mucus Objective Vital Signs - 12hr 12/19/20 12/19/20 12/19/20 03:49 04:32 08:58 Temperature 98.1 F 98.0 F Pulse Rate 64 99 H 61 Respiratory 18 81 H Rate Blood Pressure 189/104 189/104 Blood Pressure 159/81 [Left] O2 Sat by Pulse 99 96 Oximetry 12/19/20 12/19/20 12/19/20 09:52 10:00 12:19 Temperature 98.2 F Pulse Rate 67 68 Respiratory 17 18 Rate Blood Pressure 150/74 Blood Pressure 162/82 [Left] O2 Sat by Pulse 94 96 Oximetry 12/19/20 12:50 Temperature Pulse Rate 87 Respiratory Rate Blood Pressure 151/67 Blood Pressure [Left] O2 Sat by Pulse Oximetry Constitutional: no acute distress, alert, other (elderly thin female with mildly increased respiratory effort at rest) Eyes: non-icteric ENT: oropharynx moist Neck: supple, no lymphadenopathy, no JVD Effort: mildly labored Ascultation: Bilateral: diminished breath sounds, wheezes (expiratory; faint), other (prolonged expiratory phase) Percussion: Bilateral: not dull Cardiovascular: regular rate and rhythm Gastrointestinal: normoactive bowel sounds, soft, non-tender, non-distended Integumentary: normal Extremities: no cyanosis, no edema, pink and warm, pulses normal Neurologic: non-focal exam, pupils equal and round, CN II-XII normal, motor s trength normal and Psychiatric: mood appropriate, affect normal CBC and BMP: 12/18/20 05:50 12/18/20 05:50 ABG, PT/INR, D-dimer: ABG ABG pH 7.329 (7.320-7.450) 12/16/20 20:00 POC ABG pCO2 61.8 mmHg (32.0-48.0) H 12/16/20 20:00 POC ABG pO2 91.4 mmHg (83-108) 12/16/20 20:00 POC ABG HCO3 31.8 12/16/20 20:00 ABG O2 Saturation 96.7 (0-100) 12/16/20 20:00 PT/INR, D-dimer PT 12.2 Sec. (12.2-14.9) 12/16/20 04:13 INR 0.85 (0.87-1.13) L 12/16/20 04:13 Abnormal lab findings: Abnormal Labs 12/15/20 12/15/20 12/15/20 20:24 20:24 20:24 RBC Hgb MCH 27 L RDW 16.3 H Seg Neuts % (Manual) Lymphocytes % (Manual) Monocytes % (Manual) 23.0 H Lymphocytes # (Manual) 0.9 L Monocytes # (Manual) 1.2 H PT 11.8 L INR 0.81 L ABG pH POC ABG pCO2 POC ABG pO2 ABG Hemoglobin ABG Oxyhemoglobin ABG Sodium ABG Potassium ABG Glucose Carboxyhemoglobin Sodium Potassium Chloride Carbon Dioxide BUN Creatinine Glucose POC Glucose Magnesium 1.60 L Arterial Blood Glucose 12/15/20 12/15/2021 20:24 22:44 04:01 RBC Hgb MCH RDW Seg Neuts % (Manual) Lymphocytes % (Manual) Monocytes % (Manual) Lymphocytes # (Manual) Monocytes # (Manual) PT INR ABG pH 7.179 L POC ABG pCO2 87.2 H 52.7 H POC ABG pO2 78.7 L 145.1 H ABG Hemoglobin 10.4 L 10.0 L ABG Oxyhemoglobin 91.8 L 98.7 H ABG Sodium 132.4 L ABG Potassium 3.0 L ABG Glucose 144 H 127 H Carboxyhemoglobin 0.2 L Sodium Potassium 3.0 L Chloride 95.8 L Carbon Dioxide 32 H BUN Creatinine 0.3 L Glucose POC Glucose Magnesium Arterial Blood Glucose 144 H 127 H 12/16/20 12/16/20 12/16/20 04:13 04:13 04:13 RBC 3.54 L Hgb 9.6 L MCH 27 L RDW 16.1 H Seg Neuts % (Manual) 91.0 H Lymphocytes % (Manual) 2.0 L Monocytes % (Manual) Lymphocytes # (Manual) 0.1 L Monocytes # (Manual) PT INR 0.85 L ABG pH POC ABG pCO2 POC ABG pO2 ABG Hemoglobin ABG Oxyhemoglobin ABG Sodium ABG Potassium ABG Glucose Carboxyhemoglobin Sodium 136 L Potassium Chloride Carbon Dioxide BUN Creatinine 0.5 L D Glucose 128 H POC Glucose Magnesium Arterial Blood Glucose 12/16/20 12/16/20 12/17/20 20:00 21:21 00:01 RBC Hgb MCH RDW Seg Neuts % (Manual) Lymphocytes % (Manual) Monocytes % (Manual) Lymphocytes # (Manual) Monocytes # (Manual) PT INR ABG pH POC ABG pCO2 61.8 H POC ABG pO2 ABG Hemoglobin 10.6 L ABG Oxyhemoglobin ABG Sodium 134.7 L ABG Potassium ABG Glucose 126 H Carboxyhemoglobin 0.3 L Sodium Potassium Chloride Carbon Dioxide BUN Creatinine Glucose POC Glucose 125 H 112 H Magnesium Arterial Blood Glucose 126 H 12/17/20 12/17/20 12/17/20 08:06 08:06 08:06 RBC 3.60 L Hgb 9.7 L MCH 27 L RDW 16.4 H Seg Neuts % (Manual) Lymphocytes % (Manual) Monocytes % (Manual) Lymphocytes # (Manual) Monocytes # (Manual) PT INR ABG pH POC ABG pCO2 POC ABG pO2 ABG Hemoglobin ABG Oxyhemoglobin ABG Sodium ABG Potassium ABG Glucose Carboxyhemoglobin Sodium Potassium Chloride 96.4 L Carbon Dioxide BUN 34 H Creatinine 0.4 L Glucose 101 H POC Glucose Magnesium 2.80 H Arterial Blood Glucose 12/17/20 12/17/20 12/17/20 11:10 18:07 23:39 RBC Hgb MCH RDW Seg Neuts % (Manual) Lymphocytes % (Manual) Monocytes % (Manual) Lymphocytes # (Manual) Monocytes # (Manual) PT INR ABG pH POC ABG pCO2 POC ABG pO2 ABG Hemoglobin ABG Oxyhemoglobin ABG Sodium ABG Potassium ABG Glucose Carboxyhemoglobin Sodium Potassium Chloride Carbon Dioxide BUN Creatinine Glucose POC Glucose 120 H 153 H 183 H Magnesium Arterial Blood Glucose 12/18/20 12/18/20 12/18/20 05:50 05:50 06:20 RBC 3.62 L Hgb 9.8 L MCH 27 L RDW 16.0 H Seg Neuts % (Manual) Lymphocytes % (Manual) Monocytes % (Manual) Lymphocytes # (Manual) Monocytes # (Manual) PT INR ABG pH POC ABG pCO2 POC ABG pO2 ABG Hemoglobin ABG Oxyhemoglobin ABG Sodium ABG Potassium ABG Glucose Carboxyhemoglobin Sodium 133 L Potassium Chloride 93.0 L Carbon Dioxide 32 H BUN 20 H Creatinine 0.3 L Glucose 156 H POC Glucose 118 H Magnesium Arterial Blood Glucose 12/18/20 12/18/20 12/18/20 07:59 12:52 16:17 RBC Hgb MCH RDW Seg Neuts % (Manual) Lymphocytes % (Manual) Monocytes % (Manual) Lymphocytes # (Manual) Monocytes # (Manual) PT INR ABG pH POC ABG pCO2 POC ABG pO2 ABG Hemoglobin ABG Oxyhemoglobin ABG Sodium ABG Potassium ABG Glucose Carboxyhemoglobin Sodium Potassium Chloride Carbon Dioxide BUN Creatinine Glucose POC Glucose 132 H 177 H 182 H Magnesium Arterial Blood Glucose 12/18/20 12/19/20 20:28 11:49 RBC Hgb MCH RDW Seg Neuts % (Manual) Lymphocytes % (Manual) Monocytes % (Manual) Lymphocytes # (Manual) Monocytes # (Manual) PT INR ABG pH POC ABG pCO2 POC ABG pO2 ABG Hemoglobin ABG Oxyhemoglobin ABG Sodium ABG Potassium ABG Glucose Carboxyhemoglobin Sodium Potassium Chloride Carbon Dioxide BUN Creatinine Glucose POC Glucose 191 H 184 H Magnesium Arterial Blood Glucose Allied health notes reviewed: nursing
--- NOTE | 2020-12-19 16:02 | Discharge Summary ---
Providers - Providers Date of Admission: 12/15/20 21:43 Date of discharge: 12/19/20 Attending physician: SELAM WILSON MD 12/15/20 21:40 Consult to Physician [CONS] Stat Comment: Dr. Kimbrough spoke with Dr. Warren @ [id number] Consulting Provider: TIM WARREN Physician Instructions: Reason For Exam: copd ex, resp failure 12/16/20 16:10 Consult to Dietitian/Nutrition [CONS] Routine Physician Instructions: Reason For Exam: Reason for Consult: Write/Manage Tube Feeding 12/18/20 11:42 Occupational Therapy Evaluate and Treat [CONS] Routine Comment: Reason For Exam: weakness s/p ext 12/17. Physical Therapy Evaluation and Treat [CONS] Routine Comment: Reason For Exam: weakness, s/p extubation 12/1712/18/20 11:47 Consult to Case Management [CONS] Routine Services Needed at Discharge: Other Notified:: case management Comment:: discharge planning 12/19/20 15:48 Consult to Case Management [CONS] Routine Services Needed at Discharge: Home Health Services Primary care physician: [employer] Hospitalization Reason for admission: Shortness of breath Condition: Critical Hospital course: HPI: 60-year-old -[place] female with known history of hypertension, COPD on home oxygen presenting to the emergency room today complaining of shortness of breath and cough which has been ongoing for the past few days. Patient denies any fever or chills, denies any chest pain, no headache or dizziness, but has had some nausea and vomiting. She has had some cough which has been productive of some whitish sputum. Patient denies any sick contacts or recent travel. Denies any contact with anyone with COVID-19. She has received COVID-19 vaccination. Upon arrival here in the emergency room today patient was seen severe respiratory distress and was placed on BiPAP initially and subsequently intubated. She received some nebulizing treatments and IV steroids with some improvement. Work-up in the emergency room today, labs were significant for hypokalemia of 3.0, hypomagnesemia of 1.6 Chest x-ray reveals increased interstitial prominence with some interstitial opacities in bilateral lungs. Lungs hyperexpanded and no pneumothorax. Patient is being admitted with COPD exacerbation with severe respiratory failure, hypomagnesemia and hypokalemia. Hospital This is a 60-year-old -[place] female with HTN, COPD, DM, ?NM, CAD, CHF on home oxygen 2L and former nicotine abuse admitted with COPD exacerbation with severe respiratory failure, hypomagnesemia and hypokalemia with consult to [facility]. She was intubated on admission and subsequently extubated on 12/17 and downgraded to medical floor. PMH: HTN, COPD, former nicotine abuse, DM Neuro: Acute metabolic encephaloptahy (resolved) Aox 4 on encounter Cardio: SR, h/o HTN -PRN IV medication for BP control -Monitor BP per protocol -Resume home antihtn regimen (amlodipine and diltiazem) and titrate as needed -PRN Labetalol Resp: Acute on Chronic Respiratory failure, COPD exacerbation, Home O2 NC 3 L, former smoker -extuabted 12/17 -supplemental oxygenation as needed -Pulmonary hygiene - resumed home brovana, singular. Continue budesonide nebs and duonebs tx. - continue prednisone 40 mg po daily total 5 day course. - continue zithromax 250 mg. total 5 day course. GI: NAD -CC cardiac diet -PPI -BR [place] -Aviod hypoglycemia : NAD -Trend BMP -[place] Endo: h/o DM -cc cardiac diet -SSI -Accucheck ACHS -avoid hypoglemia -hold home metformin ID: COPD exacerbation -CXR shows some interstitial opacities in B lungs - dc Levaquin, start azithromycin po. -Trend CBC -afebrile Heme: -VTE: heparin subq -SCDS to BLE while in bed -Trend CBC Dispo: will likey stay one additional night. Respiratory status improved. Will complete walking O2 test and likely set up patient for home oxygen. PT/OT consulted. CM consulted for discharge planning . Disposition: DC-01 TO HOME OR SELFCARE Final Discharge Diagnosis (Prints w/discharge instructions): Acute respiratory failure, COPD exacerbation Time spent for discharge: 35 Core Measure Documentation - Palliative Care Palliative Care/ Comfort Measures: Not Applicable - Core Measures Any of the following diagnoses?: none Exam - Physical Exam Narrative exam: Constitutional: no acute distress, elderly female, on nasal cannula. non labored respirations. Eyes: non-icteric ENT: oropharynx moist Neck: supple, no lymphadenopathy, no JVD Ascultation: Bilateral: diminished breath sounds, wheezes (expiratory), other (prolonged expiratory phase) Percussion: Bilateral: not dull Cardiovascular: regular rate and rhythm Gastrointestinal: normoactive bowel sounds, soft, non-tender, non-distended Integumentary: normal Extremities: no cyanosis, no edema, pink and warm, pulses normal Neurologic: non-focal exam, pupils equal and round, CN II-XII normal, motor strength normal and Psychiatric: mood appropriate, affect normal - Constitutional Vitals: Temp Pulse Resp BP Pulse Ox 98.2 F 87 18 151/67 96 12/19/20 12:19 12/19/20 12:50 12/19/20 12:19 12/19/20 12:50 12/19/20 12:19 Plan Activity: no restrictions Weight Bearing Status: Weight Bear as Tolerated Diet: low salt Special Instructions: home oxygen via (Nasal cannula 4 L. Patient uses home oxygen chronically) Follow up with: PRIMARY CARE, [Primary Care Provider] - 3-5 Days ALEX GALINDO MD [Staff Physician] - 7 Days Prescriptions: Montelukast [Singulair] 10 mg PO QHS 30 Days #30 tablet amLODIPine 10 mg PO QDAY 30 Days #30 tablet Arformoterol Nebu [Brovana Nebu] 15 mcg IH Q12HRT 30 Days #1 inh predniSONE [Deltasone] 40 mg PO QDAY 1 Days #1 tablet Budesonide [Pulmicort Respules] 0.5 mg IH Q12HRT 30 Days #1 nebu Azithromycin [Zithromax TAB] 250 mg PO QDAY 1 Days #1 tablet
[2020-12-19 17:37] VITALS: BP 142/87
== END 2020-12-19 20:45 | disposition home health service (06) | DRG 208 ==
LOC: ED 19:31 → CC1 21:43 → 4A 12-17 19:57
PROVIDERS: ADMIT Internal Medicine Geriatric Medicine; ATTEND Internal Medicine
PROC: 0BH17EZ Insertion of Endotracheal Airway into Trachea, Via Natural or Artificial Opening (ICD-10-PCS; principal; 2020-12-15)
PROC: 5A1945Z Respiratory Ventilation, 24-96 Consecutive Hours (ICD-10-PCS; 2020-12-15)
PROC: 5A09357 Assistance with Respiratory Ventilation, Less than 24 Consecutive Hours, Continuous Positive Airway Pressure (ICD-10-PCS; 2020-12-15)
PROC: 4A033R1 Measurement of Arterial Saturation, Peripheral, Percutaneous Approach (ICD-10-PCS; 2020-12-15)
DX: J44.1 Chronic obstructive pulmonary disease with (acute) exacerbation (principal); J96.21 Acute and chronic respiratory failure with hypoxia; G93.41 Metabolic encephalopathy; J96.22 Acute and chronic respiratory failure with hypercapnia; E46 Unspecified protein-calorie malnutrition; E87.2 Acidosis; E87.6 Hypokalemia; E83.42 Hypomagnesemia; I16.0 Hypertensive urgency; Z68.38 Body mass index [BMI] 38.0-38.9, adult; Z86.79 Personal history of other diseases of the circulatory system; Z87.891 Personal history of nicotine dependence; E11.9 Type 2 diabetes mellitus without complications
CPT/HCPCS: 36415; 36600; 71045; 74018; 80048; 82140; 82550; 82805; 82962; 83735; 84484; 85007; 85025; 85027; 85610; 87040; 87070; 87205; 93005; 94002; 94003; 94640; 94644; G0378; J0456; J0696; J1200; J1644; J1956; J2704; J2765; J2920; J2930; J3010; J3475; J3480; J7120; J7512

== ENCOUNTER 2020-12-25 23:47 | Inpatient (IN) | payer MEDICARE ==
[2020-12-26] MEDS ORDERED: ALBUTEROL 2.5 MG/3 ML NEBU IH ONE ×2 (00:19→02:43)
[2020-12-26] MEDS ORDERED: IPRATROPIUM 0.02% NEBU 2.5 ML IH ONE ×2 (00:19→02:43)
--- NOTE | 2020-12-26 00:21 | Emergency Department Report ---
ED Shortness of Breath HPI - General Chief Complaint: Dyspnea/Respdistress Stated Complaint: RESPIRTORY DISTRESS Time Seen by Provider: 12/26/20 00:01 Source: patient Mode of arrival: Ambulatory Limitations: No Limitations - History of Present Illness Initial Comments: Patient is a 60-year-old female who presents emergency room with complaints of shortness of breath and difficulty breathing. Patient states that she always has basic shortness of breath but approximately 2 to 3 days ago her shortness of breath started worsening. Patient states that she has a history of COPD. Patient states she was also recently admitted to the hospital for 3 to 4 days for COPD exacerbation. Patient states her shortness of breath better with rest and worse with exertion. Patient dates she has a dry cough. Patient dates she has a lot of wheezing. Patient denies chest pain. Patient denies fever and chills. Patient denies recent travel. Patient denies recent international travel. Patient denies exposure to the novel coronavirus. Patient denies sick contacts. Patient denies fever and chills. Patient denies cough. Patient denies diarrhea. Patient denies coming in contact with anybody with symptoms of the novel coronavirus. Patient brought in by EMS. Report received from EMS. Patient was found to be hypoxic and required more oxygen and her normal 2 L of home oxygen.. Patient given albuterol, Solu-Medrol and mag. Complaint: shortness of breath -: Sudden Severity: severe Consistency: constant Improves With: rest Worsens With: exertion Known History Of: COPD Associated Symptoms: cough Treatments Prior to Arrival: bronchodilator, other - Related Data Home Oxygen Therapy: Yes Home Oxygen Amount: 2 Liters Home Medications Medication Instructions Recorded Confirmed Last Taken dilTIAZem [Cardizem] 60 mg PO QID 12/17/20 12/17/20 12/17/20 11:00 Previous Rx's Medication Instructions Recorded Last Taken Type Arformoterol Nebu [Brovana Nebu] 15 mcg IH Q12HRT 30 Days #1 inh 12/19/20 Unknown Rx Azithromycin [Zithromax TAB] 250 mg PO QDAY 1 Days #1 tablet 12/19/20 Unknown Rx Budesonide [Pulmicort Respules] 0.5 mg IH Q12HRT 30 Days #1 nebu 12/19/20 Unknown Rx Montelukast [Singulair] 10 mg PO QHS 30 Days #30 tablet 12/19/20 Unknown Rx amLODIPine 10 mg PO QDAY 30 Days #30 tablet 12/19/20 Unknown Rx guaiFENesin DM [Guaifenesin Dm 10 ml PO Q4H PRN 30 Days #1 bottle 12/19/20 Unknown Rx Syrup] predniSONE [Deltasone] 40 mg PO QDAY 1 Days #1 tablet 12/19/20 Unknown Rx Allergies Allergy/AdvReac Type Severity Reaction Status Date / Time No Known Allergies Allergy Unverified 12/15/20 20:19 ED Review of Systems ROS: Stated complaint: RESPIRTORY DISTRESS Other details as noted in HPI Constitutional: denies: chills, fever Eyes: denies: eye pain, eye discharge, vision change ENT: denies: ear pain, throat pain Respiratory: see HPI, shortness of breath. denies: cough, wheezing Cardiovascular: denies: chest pain, palpitations Endocrine: no symptoms reported Gastrointestinal: denies: abdominal pain, nausea, diarrhea Genitourinary: denies: urgency, dysuria, discharge Musculoskeletal: denies: back pain, joint swelling, arthralgia Skin: denies: rash, lesions Neurological: denies: headache, weakness, paresthesias Psychiatric: denies: anxiety, depression Hematological/Lymphatic: denies: easy bleeding, easy bruising ED Past Medical Hx - Past Medical History Previous Medical History?: Yes Hx Hypertension: Yes Hx Diabetes: Yes Hx Asthma: Yes Hx COPD: Yes - Surgical History Past Surgical History?: No - Family History Family history: no significant - Social History Smoking Status: Former Smoker Substance Use Type: None - Medications Home Medications: Home Medications Medication Instructions Recorded Confirmed Last Taken Type dilTIAZem [Cardizem] 60 mg PO QID 12/17/20 12/17/20 12/17/20 11:00 History Arformoterol Nebu [Brovana Nebu] 15 mcg IH Q12HRT 30 Days #1 inh 12/19/20 Unknown Rx Azithromycin [Zithromax TAB] 250 mg PO QDAY 1 Days #1 tablet 12/19/20 Unknown Rx Budesonide [Pulmicort Respules] 0.5 mg IH Q12HRT 30 Days #1 nebu 12/19/20 Unknown Rx Montelukast [Singulair] 10 mg PO QHS 30 Days #30 tablet 12/19/20 Unknown Rx amLODIPine 10 mg PO QDAY 30 Days #30 tablet 12/19/20 Unknown Rx guaiFENesin DM [Guaifenesin Dm 10 ml PO Q4H PRN 30 Days #1 bottle 12/19/20 Unknown Rx Syrup] predniSONE [Deltasone] 40 mg PO QDAY 1 Days #1 tablet 12/19/20 Unknown Rx ED Physical Exam - General General appearance: alert, in distress - Head Head exam: Present: atraumatic, normocephalic - Eye Eye exam: Present: normal appearance, PERRL Pupils: Present: normal accommodation - ENT ENT exam: Present: mucous membranes moist - Neck Neck exam: Present: normal inspection - Respiratory Respiratory exam: Present: respiratory distress, wheezes, accessory muscle use - Cardiovascular Cardiovascular Exam: Present: regular rate, normal rhythm. Absent: systolic murmur, diastolic murmur, rubs, gallop - GI/Abdominal GI/Abdominal exam: Present: soft, normal bowel sounds - Extremities Exam Extremities exam: Present: normal inspection - Back Exam Back exam: Present: normal inspection - Neurological Exam Neurological exam: Present: alert, oriented X3 - Psychiatric Psychiatric exam: Present: normal affect, normal mood - Skin Skin exam: Present: warm, dry, intact, normal color. Absent: rash ED Course Vital Signs 12/26/20 01:19 Temperature 98 F Pulse Rate 75 Respiratory 30 H Rate Blood Pressure 126/63 [Left] O2 Sat by Pulse 94 Oximetry - Reevaluation(s) Reevaluation #1: Patient placed on playground monitor. Patient increased work of breathing as well as wheezing throughout. Patient was given hour-long albuterol and placed on BiPAP. 12/26/20 00:21 Reevaluation #2: Patient is on BiPAP and patient's work to breathe has improved. 12/26/20 01:17 Reevaluation #3: Patient still on BiPAP. Patient states he is feeling better. Patient's work to breathe has improved. Patient vital signs have improved. I discussed all results with patient. I discussed plan of care with patient. Patient agrees with plan of care and admission. Patient to be admitted to the hospitalist service. 12/26/20 02:50 - Consultations Consultation #1: Hospitalist consulted for admission. Hospitalist to admit patient. 12/26/20 02:50 ED Medical Decision Making - Lab Data Result diagrams: 12/26/20 01:09 12/26/20 01:09 - Radiology Data Radiology results: report reviewed, image reviewed interpreted by me: Chest x-ray: No pneumonia, no pneumothorax, no foreign body, no osseous findings, no acute findings CHEST 1 VIEW 12/26/2020 12:51 AM INDICATION / CLINICAL INFORMATION: Dyspnea. COMPARISON: 12/17/20 FINDINGS: SUPPORT DEVICES: None. HEART / MEDIASTINUM: Upper normal size and stable. LUNGS / PLEURA: Lungs are hyperinflated with mild interstitial prominence, unchanged. No acute airspace disease. No pneumothorax. ADDITIONAL FINDINGS: No significant additional findings. IMPRESSION: 1. Hyperinflated lungs but no acute findings. No change. - Medical Decision Making Patient is a 60-year-old female that presents emergency room with complaints of. Shortness of breath and difficulty breathing. Patient brought in by EMS. EMS found patient to be hypoxic and having wheezing. Patient was given Solu- Medrol, mag and albuterol by EMS. Patient still had increased work to breathe and wheezing and respiratory distress. Patient given an hour-long albuterol and placed on BiPAP. Patient's work to breathe improved. Patient's hypoxia improved. Patient had labs done which were essentially unremarkable except for anemia. Patient had a chest x-ray which was negative for acute findings of pneumonia. I personally reviewed the chest x-ray. Patient admitted to the hospitalist service for further evaluation treatment. Critical care time documented due to the multiple reassessments, prolonged time at the bedside, interpretation of diagnostics and labs. - Differential Diagnosis Pneumonia, bronchitis, COPD exacerbation, hypoxia Critical Care Time: Yes Critical care time in (mins) excluding proc time.: 35 Critical care attestation.: If time is entered above; I have spent that time in minutes in the direct care of this critically ill patient, excluding procedure time. Critical Care Time: 35 minutes ED Disposition Clinical Impression: COPD with acute exacerbation Acute respiratory failure Qualifiers: Respiratory failure complication: hypoxia Qualified Code(s): J96.01 - Acute respiratory failure with hypoxia Anemia Qualifiers: Anemia type: unspecified type Qualified Code(s): D64.9 - Anemia, unspecified Disposition: 09 OP ADMIT IP TO THIS HOSP Is pt being admited?: Yes Does the pt Need Aspirin: No Condition: Critical Instructions: Chronic Obstructive Pulmonary Disease (ED) Referrals: PRIMARY CARE, [Primary Care Provider] - 3-5 Days Time of Disposition: 02:51
[2020-12-26 01:35] LABS: Hematocrit 29.3 % (30.3-42.9); Hemoglobin 9.3 gm/dl (10.1-14.3); Mean Corpuscular HGB Conc 32 % (30-34); Mean Corpuscular Volume 83 fl (79-97); Platelet Count 522 K/mm3 (140-440); Red Blood Count 3.53 M/mm3 (3.65-5.03); Red Cell Distribution Width 16.5 % (13.2-15.2)
[2020-12-26 01:54] LABS: Alanine Aminotransferase 12 units/L (7-56); Albumin 4.1 g/dL (3.9-5); Blood Urea Nitrogen 13 mg/dL (7-17); Calcium 9.6 mg/dL (8.4-10.2); Hemolysis Index 3
[2020-12-26 02:01] LABS: BUN/Creatinine Ratio 26
--- NOTE | 2020-12-26 02:01 | XRay Report ---
CHEST 1 VIEW 12/26/2020 12:51 AM INDICATION / CLINICAL INFORMATION: Dyspnea. COMPARISON: 12/17/20 FINDINGS: SUPPORT DEVICES: None. HEART / MEDIASTINUM: Upper normal size and stable. LUNGS / PLEURA: Lungs are hyperinflated with mild interstitial prominence, unchanged. No acute airspa ce disease. No pneumothorax. ADDITIONAL FINDINGS: No significant additional findings. IMPRESSION: 1. Hyperinflated lungs but no acute findings. No change. Signer Name: Jose Melendez MD Signed: 12/26/2020 1:56 AM Workstation Name: [id number]
[2020-12-26 02:13] LABS: Anisocytosis 1+; Hypochromasia Few; Platelet Estimate Consistent w Auto; Target Cells Few; Total Cells Counted 100
[2020-12-26] MEDS ORDERED: DEXTROSE 50% IN WATER (25GM) 50 ML SYRINGE IV PRN (02:55)
[2020-12-26] MEDS ORDERED: ONDANSETRON 4 MG/2 ML INJ IV PRN (02:55)
[2020-12-26] MEDS ORDERED: NALOXONE 0.4 MG/1 ML INJ IV PRN (02:55)
[2020-12-26] MEDS ORDERED: ALBUTEROL 2.5 MG/3 ML NEBU IH PRN (02:55)
[2020-12-26] MEDS ORDERED: ACETAMINOPHEN 325 MG TAB PO PRN (02:55)
--- NOTE | 2020-12-26 03:18 | History and Physical Report ---
History of Present Illness Date of examination: 12/26/20 Date of admission: 12/26/2020 Chief complaint: CADENCE History of present illness: 60-year-old -Cypriot female with history of hypertension, diabetes, COPD, and chronic respiratory failure on 2 L continuous supplemental home oxygen who presents to [facility] ED with complaints of shortness of breath and difficulty breathing. Patient complains of increased shortness of breath at rest and difficulty breathing for the past 2 to 3 days. She attempted to use her rescue inhaler and increase oxygen delivery with no improvement in symptoms. She decided to call 911 for assistance. Upon EMS arrival to patient's home she was found to be hypoxic on supplemental nasal cannula, and given albuterol Solu- Medrol and magnesium. She was transported to our facility for further evaluation and treatment. At the time of my evaluation patient is on BiPAP with decreased work of breathing, and oxygen saturation of 95%. Of note patient was admitted on 12/15 with similar complaints, intubated on 12/15 and extubated on . She was discharged on 12/19. Endorses cough with intermittent thick white and ambrocio sputum production Denies recent tobacco/smoking, fever, chills, headache, nausea, vomiting, diarrhea, chest pain, palpitation, abdominal pain, constipation, or recent sick contacts Past History Past Medical History: COPD (Asthma, ), diabetes, hypertension, other (chronic respiratory failure) Past Surgical History: No surgical history Social history: full code, other (lives with boyfriend, drinks beer occasionally). denies: smoking Family history: no significant family history Medications and Allergies Allergies Allergy/AdvReac Type Severity Reaction Status Date / Time No Known Allergies Allergy Unverified 12/15/20 20:19 Home Medications Medication Instructions Recorded Confirmed Last Taken Type dilTIAZem [Cardizem] 60 mg PO QID 12/17/20 12/17/20 12/17/20 11:00 History Arformoterol Nebu [Brovana Nebu] 15 mcg IH Q12HRT 30 Days #1 inh 12/19/20 Unknown Rx Azithromycin [Zithromax TAB] 250 mg PO QDAY 1 Days #1 tablet 12/19/20 Unknown Rx Budesonide [Pulmicort Respules] 0.5 mg IH Q12HRT 30 Days #1 nebu 12/19/20 Unknown Rx Montelukast [Singulair] 10 mg PO QHS 30 Days #30 tablet 12/19/20 Unknown Rx amLODIPine 10 mg PO QDAY 30 Days #30 tablet 12/19/20 Unknown Rx guaiFENesin DM [Guaifenesin Dm 10 ml PO Q4H PRN 30 Days #1 bottle 12/19/20 Unknown Rx Syrup] predniSONE [Deltasone] 40 mg PO QDAY 1 Days #1 tablet 12/19/20 Unknown Rx Active Meds: Active Medications Acetaminophen (Acetaminophen 325 Mg Tab) 650 mg PO Q4H PRN PRN Reason: Pain MILD(1-3)/Fever >100.5/DELGADO Albuterol (Albuterol 2.5 Mg/3 Ml Nebu) 2.5 mg IH Q3HRT PRN PRN Reason: Shortness Of Breath Albuterol/Ipratropium (Ipratropium/Albuterol Sulfate 3 Ml Ampul.Neb) 1 ampul IH Q6HRT DAE Budesonide (Budesonide 0.5 Mg/2 Ml Nebu) 0.5 mg IH Q12HRT DAE Dextrose (Dextrose 50% In Water (25gm) 50 Ml Syringe) 50 ml IV Q30MIN PRN; Protocol PRN Reason: Hypoglycemia Docusate Sodium (Docusate Sodium 100 Mg Cap) 100 mg PO BID DAE Famotidine (Famotidine 10 Mg Tab) 10 mg PO BID DAE Guaifenesin (Guaifenesin Er 600 Mg Tab) 600 mg PO BID DAE Heparin Sodium (Porcine) (Heparin 5,000 Unit/1 Ml Vial) 5,000 unit SUB-Q Q12HR DAE Levofloxacin/Dextrose (Levaquin 500mg/100ml) 500 mg in 100 mls @ 100 mls/hr IV Q24H DAE; Protocol Insulin Human Lispro (Insulin Lispro 100 Unit/Ml) 0 unit SUB-Q ACHS DAE; Protocol Naloxone HCl (Naloxone 0.4 Mg/1 Ml Inj) 0.1 mg IV Q2MIN PRN PRN Reason: Res Rate </= 8 or 02 SAT < 92% Ondansetron HCl (Ondansetron 4 Mg/2 Ml Inj) 4 mg IV Q6H PRN PRN Reason: Nausea And Vomiting Oxycodone/Acetaminophen (Oxycodone /Acetaminophen 5-325mg Tab) 1 tab PO Q6H PRN PRN Reason: Pain, Moderate (4-6) Sodium Chloride (Sodium Chloride 0.9% 10 Ml Flush Syringe) 10 ml IV BID DAE Sodium Chloride (Sodium Chloride 0.9% 10 Ml Flush Syringe) 10 ml IV PRN PRN PRN Reason: LINE FLUSH Review of Systems All systems: negative (As noted in HPI) Exam - Physical Exam Narrative exam: Physical exam General appearance: Present: No acute distress, resting, easily aroused, oriented x3 adult female - EENT Eyes: Present: PERRL, EOM intact ENT: hearing intact, missing teeth - Neck Neck: Present: supple, normal ROM - Respiratory Respiratory effort: Slightly labored on BiPAP Respiratory: Scattered wheezing - Cardiovascular Heart rate: 70 (bpm) Rhythm: Sinus Heart Sounds: Present: S1 & S2. Absent: rub, click - Extremities Extremities: no ischemia, pulses intact, - Peripheral Assessment Peripheral Pulses: within normal limits - Abdominal General gastrointestinal: soft, non-tender, normal bowel sounds - Integumentary Integumentary: Present: warm, dry - Musculoskeletal Musculoskeletal: Able to move all extremities -Neurological Neurological: CN II-XII intact - Psychiatric Psychiatric: cooperative - Constitutional Vitals: Temp Pulse Resp BP Pulse Ox 98 F 77 35 H 126/63 97 12/26/20 01:19 12/26/20 02:59 12/26/20 02:59 12/26/20 02:59 12/26/20 02:59 HEART Score - HEART Score Troponin: WBC 13.3 K/mm3 (4.5-11.0) H 12/26/20 01:09 RBC 3.53 M/mm3 (3.65-5.03) L 12/26/20 01:09 Hgb 9.3 gm/dl (10.1-14.3) L 12/26/20 01:09 Hct 29.3 % (30.3-42.9) L 12/26/20 01:09 MCV 83 fl (79-97) 12/26/20 01:09 MCH 26 pg (28-32) L 12/26/20 01:09 MCHC 32 % (30-34) 12/26/20 01:09 RDW 16.5 % (13.2-15.2) H 12/26/20 01:09 Plt Count 522 K/mm3 (140-440) H 12/26/20 01:09 Add Manual Diff Complete 12/26/20 01:09 Total Counted 100 12/26/20 01:09 Seg Neutrophils % Business Support Associate 12/26/20 01:09 Seg Neuts % (Manual) 95.0 % (40.0-70.0) H 12/26/20 01:09 Lymphocytes % (Manual) 2.0 % (13.4-35.0) L 12/26/20 01:09 Monocytes % (Manual) 3.0 % (0.0-7.3) 12/26/20 01:09 Nucleated RBC % Not Reportable 12/26/20 01:09 Seg Neutrophils # Man 12.6 K/mm3 (1.8-7.7) H 12/26/20 01:09 Band Neutrophils # 0.0 K/mm3 12/26/20 01:09 Lymphocytes # (Manual) 0.3 K/mm3 (1.2-5.4) L 12/26/20 01:09 Abs React Lymphs (Man) 0.0 K/mm3 12/26/20 01:09 Monocytes # (Manual) 0.4 K/mm3 (0.0-0.8) 12/26/20 01:09 Eosinophils # (Manual) 0.0 K/mm3 (0.0-0.4) 12/26/20 01:09 Basophils # (Manual) 0.0 K/mm3 (0.0-0.1) 12/26/20 01:09 Metamyelocytes # 0.0 K/mm3 12/26/20 01:09 Myelocytes # 0.0 K/mm3 12/26/20 01:09 Promyelocytes # 0.0 K/mm3 12/26/20 01:09 Blast Cells # 0.0 K/mm3 12/26/20 01:09 WBC Morphology Not Reportable 12/26/20 01:09 Hypersegmented Neuts Not Reportable 12/26/20 01:09 Hyposegmented Neuts Not Reportable 12/26/20 01:09 Hypogranular Neuts Not Reportable 12/26/20 01:09 Smudge Cells Not Reportable 12/26/20 01:09 Toxic Granulation Not Reportable 12/26/20 01:09 Toxic Vacuolation Not Reportable 12/26/20 01:09 Dohle Bodies Not Reportable 12/26/20 01:09 Pelger-Huet Anomaly Not Reportable 12/26/20 01:09 Calu Rods Not Reportable 12/26/20 01:09 Platelet Estimate Consistent w auto 12/26/20 01:09 Clumped Platelets Not Reportable 12/26/20 01:09 Plt Clumps, EDTA Not Reportable 12/26/20 01:09 Large Platelets Not Reportable 12/26/20 01:09 Giant Platelets Not Reportable 12/26/20 01:09 Platelet Satelliting Not Reportable 12/26/20 01:09 Plt Morphology Comment Not Reportable 12/26/20 01:09 RBC Morphology Not Reportable 12/26/20 01:09 Dimorphic RBCs Not Reportable 12/26/20 01:09 Polychromasia Not Reportable 12/26/20 01:09 Hypochromasia Few 12/26/20 01:09 Poikilocytosis Not Reportable 12/26/20 01:09 Anisocytosis 1+ 12/26/20 01:09 Microcytosis Not Reportable 12/26/20 01:09 Macrocytosis Not Reportable 12/26/20 01:09 Spherocytes Not Reportable 12/26/20 01:09 Pappenheimer Bodies Not Reportable 12/26/20 01:09 Sickle Cells Not Reportable 12/26/20 01:09 Target Cells Few 12/26/20 01:09 Tear Drop Cells Not Reportable 12/26/20 01:09 Ovalocytes Not Reportable 12/26/20 01:09 Helmet Cells Not Reportable 12/26/20 01:09 [place] Bodies Not Reportable 12/26/20 01:09 [place] Rings Not Reportable 12/26/20 01:09 [place] Cells Not Reportable 12/26/20 01:09 Bite Cells Not Reportable 12/26/20 01:09 Crenated Cell Not Reportable 12/26/20 01:09 Elliptocytes Not Reportable 12/26/20 01:09 Acanthocytes (Spur) Not Reportable 12/26/20 01:09 Rouleaux Not Reportable 12/26/20 01:09 Hemoglobin C Crystals Not Reportable 12/26/20 01:09 Schistocytes Not Reportable 12/26/20 01:09 Malaria parasites Not Reportable 12/26/20 01:09 Patric Bodies Not Reportable 12/26/20 01:09 Hem Pathologist Commnt No 12/26/20 01:09 Sodium 135 mmol/L (137-145) L 12/26/20 01:09 Potassium 3.8 mmol/L (3.6-5.0) 12/26/20 01:09 Chloride 93.9 mmol/L (98-107) L 12/26/20 01:09 Carbon Dioxide 29 mmol/L (22-30) 12/26/20 01:09 Anion Gap 16 mmol/L 12/26/20 01:09 BUN 13 mg/dL (7-17) 12/26/20 01:09 Creatinine 0.5 mg/dL (0.6-1.2) L 12/26/20 01:09 Estimated GFR > 60 ml/min 12/26/20 01:09 BUN/Creatinine Ratio 26 % 12/26/20 01:09 Glucose 132 mg/dL (65-100) H 12/26/20 01:09 Lactic Acid 0.60 mmol/L (0.7-2.0) L 12/26/20 01:09 Calcium 9.6 mg/dL (8.4-10.2) 12/26/20 01:09 Total Bilirubin 0.30 mg/dL (0.1-1.2) 12/26/20 01:09 AST 13 units/L (5-40) 12/26/20 01:09 ALT 12 units/L (7-56) 12/26/20 01:09 Alkaline Phosphatase 55 units/L (35-129) 12/26/20 01:09 Total Protein 6.5 g/dL (6.3-8.2) 12/26/20 01:09 Albumin 4.1 g/dL (3.9-5) 12/26/20 01:09 Albumin/Globulin Ratio 1.7 % 12/26/20 01:09 Results - Labs CBC & Chem 7: 12/26/20 01:09 12/26/20 01:09 Labs: Laboratory Last Values WBC 13.3 K/mm3 (4.5-11.0) H 12/26/20 01:09 RBC 3.53 M/mm3 (3.65-5.03) L 12/26/20 01:09 Hgb 9.3 gm/dl (10.1-14.3) L 12/26/20 01:09 Hct 29.3 % (30.3-42.9) L 12/26/20 01:09 MCV 83 fl (79-97) 12/26/20 01:09 MCH 26 pg (28-32) L 12/26/20 01:09 MCHC 32 % (30-34) 12/26/20 01:09 RDW 16.5 % (13.2-15.2) H 12/26/20 01:09 Plt Count 522 K/mm3 (140-440) H 12/26/20 01:09 Add Manual Diff Complete 12/26/20 01:09 Total Counted 100 12/26/20 01:09 Seg Neutrophils % Business Support Associate 12/26/20 01:09 Seg Neuts % (Manual) 95.0 % (40.0-70.0) H 12/26/20 01:09 Lymphocytes % (Manual) 2.0 % (13.4-35.0) L 12/26/20 01:09 Monocytes % (Manual) 3.0 % (0.0-7.3) 12/26/20 01:09 Nucleated RBC % Not Reportable 12/26/20 01:09 Seg Neutrophils # Man 12.6 K/mm3 (1.8-7.7) H 12/26/20 01:09 Band Neutrophils # 0.0 K/mm3 12/26/20 01:09 Lymphocytes # (Manual) 0.3 K/mm3 (1.2-5.4) L 12/26/20 01:09 Abs React Lymphs (Man) 0.0 K/mm3 12/26/20 01:09 Monocytes # (Manual) 0.4 K/mm3 (0.0-0.8) 12/26/20 01:09 Eosinophils # (Manual) 0.0 K/mm3 (0.0-0.4) 12/26/20 01:09 Basophils # (Manual) 0.0 K/mm3 (0.0-0.1) 12/26/20 01:09 Metamyelocytes # 0.0 K/mm3 12/26/20 01:09 Myelocytes # 0.0 K/mm3 12/26/20 01:09 Promyelocytes # 0.0 K/mm3 12/26/20 01:09 Blast Cells # 0.0 K/mm3 12/26/20 01:09 WBC Morphology Not Reportable 12/26/20 01:09 Hypersegmented Neuts Not Reportable 12/26/20 01:09 Hyposegmented Neuts Not Reportable 12/26/20 01:09 Hypogranular Neuts Not Reportable 12/26/20 01:09 Smudge Cells Not Reportable 12/26/20 01:09 Toxic Granulation Not Reportable 12/26/20 01:09 Toxic Vacuolation Not Reportable 12/26/20 01:09 Dohle Bodies Not Reportable 12/26/20 01:09 Pelger-Huet Anomaly Not Reportable 12/26/20 01:09 Clau Rods Not Reportable 12/26/20 01:09 Platelet Estimate Consistent w auto 12/26/20 01:09 Clumped Platelets Not Reportable 12/26/20 01:09 Plt Clumps, EDTA Not Reportable 12/26/20 01:09 Large Platelets Not Reportable 12/26/20 01:09 Giant Platelets Not Reportable 12/26/20 01:09 Platelet Satelliting Not Reportable 12/26/20 01:09 Plt Morphology Comment Not Reportable 12/26/20 01:09 RBC Morphology Not Reportable 12/26/20 01:09 Dimorphic RBCs Not Reportable 12/26/20 01:09 Polychromasia Not Reportable 12/26/20 01:09 Hypochromasia Few 12/26/20 01:09 Poikilocytosis Not Reportable 12/26/20 01:09 Anisocytosis 1+ 12/26/20 01:09 Microcytosis Not Reportable 12/26/20 01:09 Macrocytosis Not Reportable 12/26/20 01:09 Spherocytes Not Reportable 12/26/20 01:09 Pappenheimer Bodies Not Reportable 12/26/20 01:09 Sickle Cells Not Reportable 12/26/20 01:09 Target Cells Few 12/26/20 01:09 Tear Drop Cells Not Reportable 12/26/20 01:09 Ovalocytes Not Reportable 12/26/20 01:09 Helmet Cells Not Reportable 12/26/20 01:09 [place] Bodies Not Reportable 12/26/20 01:09 [place] Rings Not Reportable 12/26/20 01:09 [place] Cells Not Reportable 12/26/20 01:09 Bite Cells Not Reportable 12/26/20 01:09 Crenated Cell Not Reportable 12/26/20 01:09 Elliptocytes Not Reportable 12/26/20 01:09 Acanthocytes (Spur) Not Reportable 12/26/20 01:09 Rouleaux Not Reportable 12/26/20 01:09 Hemoglobin C Crystals Not Reportable 12/26/20 01:09 Schistocytes Not Reportable 12/26/20 01:09 Malaria parasites Not Reportable 12/26/20 01:09 Patric Bodies Not Reportable 12/26/20 01:09 Hem Pathologist Commnt No 12/26/20 01:09 Sodium 135 mmol/L (137-145) L 12/26/20 01:09 Potassium 3.8 mmol/L (3.6-5.0) 12/26/20 01:09 Chloride 93.9 mmol/L (98-107) L 12/26/20 01:09 Carbon Dioxide 29 mmol/L (22-30) 12/26/20 01:09 Anion Gap 16 mmol/L 12/26/20 01:09 BUN 13 mg/dL (7-17) 12/26/20 01:09 Creatinine 0.5 mg/dL (0.6-1.2) L 12/26/20 01:09 Estimated GFR > 60 ml/min 12/26/20 01:09 BUN/Creatinine Ratio 26 % 12/26/20 01:09 Glucose 132 mg/dL (65-100) H 12/26/20 01:09 Lactic Acid 0.60 mmol/L (0.7-2.0) L 12/26/20 01:09 Calcium 9.6 mg/dL (8.4-10.2) 12/26/20 01:09 Total Bilirubin 0.30 mg/dL (0.1-1.2) 12/26/20 01:09 AST 13 units/L (5-40) 12/26/20 01:09 ALT 12 units/L (7-56) 12/26/20 01:09 Alkaline Phosphatase 55 units/L (35-129) 12/26/20 01:09 Total Protein 6.5 g/dL (6.3-8.2) 12/26/20 01:09 Albumin 4.1 g/dL (3.9-5) 12/26/20 01:09 Albumin/Globulin Ratio 1.7 % 12/26/20 01:09 - Imaging and Cardiology Imaging and Cardiology: CXR: FINDINGS: SUPPORT DEVICES: None. HEART / MEDIASTINUM: Upper normal size and stable. LUNGS / PLEURA: Lungs are hyperinflated with mild interstitial prominence, unchanged. No acute airspace disease. No pneumothorax. ADDITIONAL FINDINGS: No significant additional findings. IMPRESSION: 1. Hyperinflated lungs but no acute findings. No change. Assessment and Plan Assessment and plan: Acute exacerbation COPD -CXR shows Hyperinflated lungs but no acute findings -Increased shortness of breath -Scheduled to DuoNebs and Pulmicort, albuterol when necessary -IV systemic steroids -Start IV ABX -Start Mucinex Acute on chronic hypoxic respiratory failure -Baseline home oxygen requirements 2 L continuously -Currently on BiPAP -Monitor saturations -Monitor CO2 -Continue supplemental oxygen wean as tolerated -s/p intubation 12/15, extubated12/17 Leukocytosis -Likely due to COPD exacerbation, ?? Systemic steroids -WBC on admission 13.3 -Afebrile -Cultures pending -Continue to monitor CBC Anemia -Chronic -Hemoglobin on admission 9.3 (9.8 on 12/18) -Continue to monitor hemoglobin -Transfuse as needed for hgb<7 DM -POC BG monitoring -SSI coverage prn HTN -Monitor BP -Resume home hypertensive meds DVT and GI PPX -On heparin and Pepcid Advance Directives: No VTE prophylaxis?: Chemical, Mechanical Plan of care discussed with patient/family: Yes
[2020-12-26] MEDS: oxyCODONE /ACETAMINOPHEN 5-325MG TAB PO PRN (05:54)
[2020-12-26] MEDS: methylPREDNISolone Sod Succinate 125 MG/2 ML INJ IV SCH ×3 (05:55→22:44)
[2020-12-26] MEDS ORDERED: guaiFENesin DM 200/20 MG ORAL LIQD 10 ML PO PRN (07:26)
[2020-12-26] MEDS ORDERED: BUDESONIDE 0.5 MG/2 ML NEBU IH SCH (08:00)
[2020-12-26] MEDS: IPRATROPIUM/ALBUTEROL SULFATE 3 ML AMPUL.NEB IH SCH ×5 (08:58→21:19)
[2020-12-26] MEDS: INSULIN LISPRO 100 UNIT/ML SUB-Q SCH ×4 (09:07→22:45)
[2020-12-26] MEDS: guaiFENesin ER 600 MG TAB PO SCH ×2 (11:56→22:44)
[2020-12-26] MEDS: DOCUSATE SODIUM 100 MG CAP PO SCH ×2 (11:57→22:44)
[2020-12-26] MEDS: amLODIPine 10 MG TAB PO SCH (11:58)
[2020-12-26] MEDS: FAMOTIDINE 10 MG TAB PO SCH ×2 (11:58→22:44)
[2020-12-26] MEDS: HEPARIN 5,000 UNIT/1 ML VIAL SUB-Q SCH ×2 (12:59→22:44)
--- NOTE | 2020-12-26 13:48 | Event Note ---
Date: 12/26/20 Patient seen and examined, resting comfortable, reports some improvement in her symptoms, she is down to 3 liters of oxygen, she reports compliance with her medication but appears that she has not been on steroids. Will monitor closely for the next 24 hrs.
[2020-12-26] MEDS: ARFORMOTEROL 15 MCG/2 ML NEBU IH SCH ×2 (13:56→21:19)
[2020-12-26] MEDS: BUDESONIDE 0.5 MG/2 ML NEBU IH SCH ×2 (13:57→21:19)
[2020-12-26] MEDS: dilTIAZem 60 MG TAB PO SCH ×4 (14:21→22:44)
--- NOTE | 2020-12-26 15:53 | Consultation ---
History of Present Illness Consult date: 12/26/20 Requesting physician: ARTHUR WILSON Reason for consult: COPD (AE-COPD) History of present illness: PULMONARY/CCM CONSULT NOTE (Full dictation # [id number]) Please see dictated notes for full details Past History Past Medical History: COPD (Asthma, ), diabetes, hypertension, other (chronic respiratory failure) Past Surgical History: No surgical history Social history: full code, other (lives with boyfriend, drinks beer occasionally). denies: smoking Family history: no significant family history Medications and Allergies Allergies Allergy/AdvReac Type Severity Reaction Status Date / Time No Known Allergies Allergy Unverified 12/15/20 20:19 Home Medications Medication Instructions Recorded Confirmed Last Taken Type dilTIAZem [Cardizem] 60 mg PO QID 12/17/20 12/17/20 12/17/20 11:00 History Arformoterol Nebu [Brovana Nebu] 15 mcg IH Q12HRT 30 Days #1 inh 12/19/20 Unknown Rx Azithromycin [Zithromax TAB] 250 mg PO QDAY 1 Days #1 tablet 12/19/20 Unknown Rx Budesonide [Pulmicort Respules] 0.5 mg IH Q12HRT 30 Days #1 nebu 12/19/20 Unknown Rx Montelukast [Singulair] 10 mg PO QHS 30 Days #30 tablet 12/19/20 Unknown Rx amLODIPine 10 mg PO QDAY 30 Days #30 tablet 12/19/20 Unknown Rx guaiFENesin DM [Guaifenesin Dm 10 ml PO Q4H PRN 30 Days #1 bottle 12/19/20 Unknown Rx Syrup] predniSONE [Deltasone] 40 mg PO QDAY 1 Days #1 tablet 12/19/20 Unknown Rx Active Meds: Active Medications Acetaminophen (Acetaminophen 325 Mg Tab) 650 mg PO Q4H PRN PRN Reason: Pain MILD(1-3)/Fever >100.5/DELGADO Albuterol (Albuterol 2.5 Mg/3 Ml Nebu) 2.5 mg IH Q3HRT PRN PRN Reason: Shortness Of Breath Albuterol/Ipratropium (Ipratropium/Albuterol Sulfate 3 Ml Ampul.Neb) 1 ampul IH Q6HRT DAE Last Admin: 12/26/20 13:56 Dose: 1 ampul Documented by: Amlodipine Besylate (Amlodipine 10 Mg Tab) 10 mg PO QDAY COUNTS INCLUDE 234 BEDS AT THE [facility] Last Admin: 12/26/20 11:58 Dose: 10 mg Documented by: Arformoterol Tartrate (Arformoterol 15 Mcg/2 Ml Nebu) 15 mcg IH Q12HRT COUNTS INCLUDE 234 BEDS AT THE [facility] Last Admin: 12/26/20 13:56 Dose: Not Given Documented by: Budesonide (Budesonide 0.5 Mg/2 Ml Nebu) 0.5 mg IH Q12HRT COUNTS INCLUDE 234 BEDS AT THE [facility] Last Admin: 12/26/20 13:57 Dose: 0.5 mg Documented by: Dextrose (Dextrose 50% In Water (25gm) 50 Ml Syringe) 50 ml IV Q30MIN PRN; Protocol PRN Reason: Hypoglycemia Diltiazem HCl (Diltiazem 60 Mg Tab) 60 mg PO QID COUNTS INCLUDE 234 BEDS AT THE [facility] Last Admin: 12/26/20 15:05 Dose: 60 mg Documented by: Docusate Sodium (Docusate Sodium 100 Mg Cap) 100 mg PO BID COUNTS INCLUDE 234 BEDS AT THE [facility] Last Admin: 12/26/20 11:57 Dose: 100 mg Documented by: Famotidine (Famotidine 10 Mg Tab) 10 mg PO BID COUNTS INCLUDE 234 BEDS AT THE [facility] Last Admin: 12/26/20 11:58 Dose: 10 mg Documented by: Guaifenesin (Guaifenesin Er 600 Mg Tab) 600 mg PO BID COUNTS INCLUDE 234 BEDS AT THE [facility] Last Admin: 12/26/20 11:56 Dose: 600 mg Documented by: Heparin Sodium (Porcine) (Heparin 5,000 Unit/1 Ml Vial) 5,000 unit SUB-Q Q12HR COUNTS INCLUDE 234 BEDS AT THE [facility] Last Admin: 12/26/20 12:59 Dose: 5,000 unit Documented by: Levofloxacin/Dextrose (Levaquin 500mg/100ml) 500 mg in 100 mls @ 100 mls/hr IV Q24H COUNTS INCLUDE 234 BEDS AT THE [facility]; Protocol Last Admin: 12/26/20 03:33 Dose: 100 mls/hr Documented by: Insulin Human Lispro (Insulin Lispro 100 Unit/Ml) 0 unit SUB-Q ACHS COUNTS INCLUDE 234 BEDS AT THE [facility]; Protocol Last Admin: 12/26/20 13:00 Dose: 2 unit Documented by: Methylprednisolone Sodium Succinate (Methylprednisolone Sod Succinate 125 Mg/2 Ml Inj) 60 mg IV Q8HR COUNTS INCLUDE 234 BEDS AT THE [facility] Last Admin: 12/26/20 14:58 Dose: 60 mg Documented by: Montelukast Sodium (Montelukast 10 Mg Tab) 10 mg PO QHS COUNTS INCLUDE 234 BEDS AT THE [facility] Naloxone HCl (Naloxone 0.4 Mg/1 Ml Inj) 0.1 mg IV Q2MIN PRN PRN Reason: Res Rate </= 8 or 02 SAT < 92% Ondansetron HCl (Ondansetron 4 Mg/2 Ml Inj) 4 mg IV Q6H PRN PRN Reason: Nausea And Vomiting Oxycodone/Acetaminophen (Oxycodone /Acetaminophen 5-325mg Tab) 1 tab PO Q6H PRN PRN Reason: Pain, Moderate (4-6) Last Admin: 12/26/20 05:54 Dose: 1 tab Documented by: Sodium Chloride (Sodium Chloride 0.9% 10 Ml Flush Syringe) 10 ml IV BID DAE Last Admin: 12/26/20 11:59 Dose: 10 ml Documented by: Sodium Chloride (Sodium Chloride 0.9% 10 Ml Flush Syringe) 10 ml IV PRN PRN PRN Reason: LINE FLUSH Physical Examination Vital signs: Vital Signs Temp Pulse Resp BP Pulse Ox 98 F 75 30 H 126/63 94 12/26/20 01:19 12/26/20 01:19 12/26/20 01:19 12/26/20 01:19 12/26/20 01:19 Results - Laboratory Findings CBC and BMP: 12/26/20 01:09 12/26/20 01:09 Abnormal lab findings: Abnormal Labs 12/26/20 12/26/20 12/26/20 01:09 01:09 01:09 WBC 13.3 H RBC 3.53 L Hgb 9.3 L Hct 29.3 L MCH 26 L RDW 16.5 H Plt Count 522 H Seg Neuts % (Manual) 95.0 H Lymphocytes % (Manual) 2.0 L Seg Neutrophils # Man 12.6 H Lymphocytes # (Manual) 0.3 L Sodium 135 L Chloride 93.9 L Creatinine 0.5 L Glucose 132 H POC Glucose Lactic Acid 0.60 L 12/26/20 12/26/20 08:56 12:43 WBC RBC Hgb Hct MCH RDW Plt Count Seg Neuts % (Manual) Lymphocytes % (Manual) Seg Neutrophils # Man Lymphocytes # (Manual) Sodium Chloride Creatinine Glucose POC Glucose 148 H 155 H Lactic Acid
[2020-12-26] MEDS: MONTELUKAST 10 MG TAB PO SCH (22:44)
--- NOTE | 2020-12-27 02:07 | Consultation ---
DATE OF CONSULTATION: 12/26/2020 PULMONARY CONSULTATION NOTE DATE OF CONSULTATION: 12/26/2020 CONSULTING PHYSICIAN: Dr. Thomas. REASON FOR CONSULTATION: Acute exacerbation of chronic obstructive pulmonary disease. CHIEF COMPLAINT AND HISTORY OF PRESENT ILLNESS: As follows: The patient is a now 60-year-old female with past medical history significant for home oxygen dependent COPD, baseline O2 level, FiO2 at home is 28%, also history of hypertension, diabetes, recently intubated about a couple of weeks ago, presented to the Emergency Room complaining of shortness of breath and difficulty breathing, had been increased in the preceding 2-3 days. She was scared that she might have contracted COVID or something else, she has received the COVID-19 vaccine, [facility] found her hypoxemic on her supplemental oxygen. She was given albuterol, Solu-Medrol, magnesium, brought into the Emergency Room and we are asked to assist with management. When I stopped by to see her, she was resting in bed. She says she is coughing up a little bit more phlegm than usual, thick whitish and ambrocio. She denied gross or streaky hemoptysis. She has a remote tobacco smoking history, but has not picked up to have it again. She denies any known contacts with COVID, states she pretty much locks herself up at home. Denied any new-onset leg pain or swelling, either unilaterally or bilaterally. Denied any headache, denied any diarrhea. Denied any loss of smell or loss of taste. The above is as much of the history of presentation as I have. PAST MEDICAL HISTORY: COPD, diabetes, hypertension, protein-calorie malnutrition. PAST SURGICAL HISTORY: None. MEDICATIONS: She was on at the time I stopped by to see her, according to the medication administration record included the following: Tylenol 650 mg p.o. q.4 hours p.r.n. mild pain or fevers, DuoNeb nebulizer treatments nebulized q.6h., amlodipine 10 mg p.o. daily, Brovana 15 mcg nebulized q.12h. Pulmicort 0.5 mg nebulized q.12h. Cardizem 60 mg p.o. q.i.d., docusate sodium 100 mg p.o. b.i.d., Pepcid 10 mg p.o. b.i.d. Mucinex ER 600 mg p.o. b.i.d., heparin 5000 units subQ q.12h, insulin via sliding scale, Levaquin 500 mg IV daily, Solu-Medrol 60 mg IV q.8 hours, Singulair 10 mg p.o. at bedtime, Zofran 4 mg IV q.6h. p.r.n. nausea and vomiting. ALLERGIES: No known drug allergies. DIET: Thin lady, cachectic, no significant weight loss or gain in the preceding few weeks to months. FAMILY AND SOCIAL HISTORY: Lives in the community. No current alcohol, tobacco or illicit drug use or abuse. She does have a remote 10+ pack year tobacco smoking history. FAMILY HISTORY: Otherwise, noncontributory. REVIEW OF SYSTEMS: No loss of consciousness. No new onset seizures. No new onset focal weakness. Denies gross hematochezia or melena. Denies gross hematuria or dysuria. Denies hematemesis. Denies heat or cold intolerance. Denies polydipsia, polyuria. Complete 13 system review of system was obtained. Pertinent positives and/or negatives as in body of history above, otherwise noncontributory. PHYSICAL EXAMINATION: VITAL SIGNS: Since she has been afebrile, temperature is 98.0 degrees Fahrenheit, pulse of 75, respiratory rate of 30, blood pressure 126/63 at presentation, O2 sats 94% at the time I saw her O2 sats were 97% on 3 liters nasal cannula. GENERAL: She is an elderly, thin lady. Normocephalic, atraumatic, talking to me in full sentences, but with mildly increased respiratory effort at rest. HEENT: Anicteric. No conjunctival erythema. Oropharynx is moist. Mallampati II. NECK: No gross jugular venous distention, no thyromegaly. Grossly, there were no palpable lymph nodes in the supraclavicular or submandibular lymph node chains. LUNGS: Auscultation of both lung doyle significant for diminished bilateral breath sounds, prolonged expiratory phase, bibasilar inspiratory rales. No wheezing. HEART: Sounds 1 and 2 are heard. There were regular rate and rhythm at the time of my evaluation without overt rubs or murmurs. ABDOMEN: Soft, flat, bowel sounds are positive, nontender, no palpable hepatosplenomegaly. EXTREMITIES: Without overt digital clubbing, no cyanosis, no pedal edema. Pedal pulses are 2+ bilaterally. NEUROLOGIC: Pupils are equal, round, about 4 mm, reactive to light. Extraocular muscle movements are intact. She moves all 4 extremities spontaneously. SKIN: Normal turgor without overt cellulitis or rash in the areas examined. Please see the wound care nurses' notes for full description of her skin. PSYCHIATRIC: Mood was normal. Affect was appropriate. She had intact judgment and insight. LABORATORY DATA: From my review are as follows: White cell count 13,300, hemoglobin 9.3, hematocrit 29.3, platelet count 522. No band forms on the manual differential. Serum sodium 135, potassium 3.8, chloride 94, bicarbonate 29, BUN 13, creatinine 0.5, glucose 132. Lactic acid 0.6, level 6. Two sets of blood cultures are no growth to date. Chest x-ray, gross cardiomegaly, increased interstitial markings consistent with a mild interstitial edema, no pleural effusions, compared to a chest x-ray from a few days ago, when discharged about the same, just smaller lung volumes on this particular x-ray. ASSESSMENT: 1. Acute on chronic hypoxemic respiratory failure. 2. Acute exacerbation of chronic obstructive pulmonary disease. 3. History of a cardiomyopathy. 4. History of diabetes. 5. Hypertension. 6. Protein-calorie malnutrition. PLAN: I am bothered about possible COVID-19 infection. I do think this is definitely a COPD exacerbation. She is needing more oxygen, coughing up a little bit more phlegm and using modified bronchodilators without improvement, I do agree with current treatment, systemic steroids as well as nebulized steroids and long-acting bronchodilators and short-acting bronchodilators, empiric community-acquired pneumonia therapy. I do think, however, we should test her for COVID-19. She is a candidate for remdesivir. If she is indeed positive this time around and further interventions could also be done and she will obviously be given different instructions as to management of the disease going forward. I will order a COVID-19 test and continue current care. Watch her definitely overnight until we get the COVID-19 test back. Thank you very much for the consult. We will follow along and make further recommendations as picture progresses/becomes clearer. TID: [id number] RECEIPT: [id number] AIRAM/MAT
[2020-12-27] MEDS: IPRATROPIUM/ALBUTEROL SULFATE 3 ML AMPUL.NEB IH SCH ×4 (02:41→22:27)
[2020-12-27] MEDS: methylPREDNISolone Sod Succinate 125 MG/2 ML INJ IV SCH ×3 (05:17→22:19)
[2020-12-27 06:13] LABS: Hemoglobin 9.6 gm/dl (10.1-14.3); Mean Corpuscular HGB Conc 33 % (30-34); Mean Corpuscular Volume 85 fl (79-97); Platelet Count 514 K/mm3 (140-440); Red Blood Count 3.41 M/mm3 (3.65-5.03); Red Cell Distribution Width 16.5 % (13.2-15.2)
[2020-12-27 06:20] LABS: Blood Urea Nitrogen 14 mg/dL (7-17); Calcium 9.7 mg/dL (8.4-10.2); Hemolysis Index 4
[2020-12-27 06:29] LABS: BUN/Creatinine Ratio 47
[2020-12-27 07:02] LABS: Total Cells Counted 100
[2020-12-27 07:03] LABS: Anisocytosis 1+; Platelet Estimate Consistent w Auto; Poikilocytosis 1+; Target Cells 1+
[2020-12-27] MEDS: oxyCODONE /ACETAMINOPHEN 5-325MG TAB PO PRN ×2 (07:48→21:18)
[2020-12-27] MEDS: INSULIN LISPRO 100 UNIT/ML SUB-Q SCH ×4 (07:50→22:21)
[2020-12-27] MEDS: ARFORMOTEROL 15 MCG/2 ML NEBU IH SCH ×2 (08:17→22:27)
[2020-12-27] MEDS: BUDESONIDE 0.5 MG/2 ML NEBU IH SCH ×2 (08:17→22:27)
[2020-12-27] MEDS: HEPARIN 5,000 UNIT/1 ML VIAL SUB-Q SCH ×2 (09:20→21:18)
[2020-12-27] MEDS: DOCUSATE SODIUM 100 MG CAP PO SCH ×2 (09:20→21:17)
[2020-12-27] MEDS: FAMOTIDINE 10 MG TAB PO SCH ×2 (09:21→21:18)
[2020-12-27] MEDS: amLODIPine 10 MG TAB PO SCH (09:21)
[2020-12-27] MEDS: dilTIAZem 60 MG TAB PO SCH ×5 (09:21→21:18)
[2020-12-27] MEDS: guaiFENesin ER 600 MG TAB PO SCH ×2 (09:22→21:17)
--- NOTE | 2020-12-27 14:42 | Progress Note ---
Assessment and Plan Acute on chronic hypoxemic respiratory failure Acute exacerbation of chronic obstructive pulmonary disease Cardiomyopathy DM II HTN Protein-calorie malnutrition - continue to wean supplemental oxygen to keep O2 sats > 88-90% - continue Bronchodilators (DIMA & LABA) with pulm hygiene per RT - continue inhaled corticosteroids - complete empiric CAP AB's - continue to avoid nephrotoxins, renally dose all medications - continue mobility protocols to prevent pressure ulcers - PT/OT as tolerated - Wound care per RN/WCT - continue accuchecks with glycemic control per SSI for target blood glucose < 180 mg/dL - continued tobacco abstinence strongly counseled at the bedside - home oxygen evaluation at discharge - GI & VTE prophylaxis - Flu & pneumovax per protocol - Pulmonary out patient follow up for PFTs and optimization of respiratory status - continue other care per attending / other consultants - prn analgesia per pain score ... re-evaluate in am & prn Subjective Date of service: 12/27/20 Principal diagnosis: Ac on ch hypoxemic and hypercapnic resp failure; AE-COPD; CMOP Interval history: Patient is seen today for: Acute on chronic hypoxemic respiratory failure; AE- COPD; CMOP; DM II; HTN; Protein-calorie malnutrition Seen and examined at bedside; 24hour events reviewed; nursing and respiratory care staff consulted; no adverse overnight events reported to me; resting peacefully in bed; Objective Vital Signs - 12hr 12/27/20 12/27/20 12/27/20 02:47 05:44 08:01 Temperature 98.0 F 97.6 F Pulse Rate 80 87 Pulse Rate [ Anterior Bilateral Throughout] Pulse Rate [ 84 Bilateral] Respiratory 20 20 Rate Respiratory Rate [Anterior Bilateral Throughout] Respiratory 20 Rate [Bilateral ] Blood Pressure 127/71 Blood Pressure 126/74 [Left] O2 Sat by Pulse 98 96 Oximetry 12/27/20 12/27/20 12/27/20 08:17 08:57 11:22 Temperature 97.8 F Pulse Rate 86 Pulse Rate [ 90 Anterior Bilateral Throughout] Pulse Rate [ Bilateral] Respiratory 20 Rate Respiratory 20 Rate [Anterior Bilateral Throughout] Respiratory Rate [Bilateral ] Blood Pressure 125/74 Blood Pressure [Left] O2 Sat by Pulse 99 97 98 Oximetry CBC and BMP: 12/27/20 05:15 12/27/20 05:15 Abnormal lab findings: Abnormal Labs 12/26/20 12/26/20 12/26/20 01:09 01:09 01:09 WBC 13.3 H RBC 3.53 L Hgb 9.3 L Hct 29.3 L MCH 26 L RDW 16.5 H Plt Count 522 H Seg Neuts % (Manual) 95.0 H Lymphocytes % (Manual) 2.0 L Seg Neutrophils # Man 12.6 H Lymphocytes # (Manual) 0.3 L Sodium 135 L Chloride 93.9 L Carbon Dioxide Creatinine 0.5 L Glucose 132 H POC Glucose Lactic Acid 0.60 L 12/26/20 12/26/20 12/26/20 08:56 12:43 16:34 WBC RBC Hgb Hct MCH RDW Plt Count Seg Neuts % (Manual) Lymphocytes % (Manual) Seg Neutrophils # Man Lymphocytes # (Manual) Sodium Chloride Carbon Dioxide Creatinine Glucose POC Glucose 148 H 155 H 170 H Lactic Acid 12/27/20 12/27/20 12/27/20 05:15 05:15 11:21 WBC RBC 3.41 L Hgb 9.6 L Hct 29.0 L MCH RDW 16.5 H Plt Count 514 H Seg Neuts % (Manual) 94.0 H Lymphocytes % (Manual) 4.0 L Seg Neutrophils # Man 8.6 H Lymphocytes # (Manual) 0.4 L Sodium Chloride Carbon Dioxide 38 H D Creatinine 0.3 L Glucose 143 H POC Glucose 183 H Lactic Acid
[2020-12-27] MEDS: MONTELUKAST 10 MG TAB PO SCH (21:18)
[2020-12-28] MEDS: IPRATROPIUM/ALBUTEROL SULFATE 3 ML AMPUL.NEB IH SCH ×3 (03:11→14:07)
--- NOTE | 2020-12-28 05:11 | Progress Note ---
Assessment and Plan Acute on chronic hypoxemic respiratory failure Acute exacerbation of chronic obstructive pulmonary disease Cardiomyopathy DM II HTN Protein-calorie malnutrition - continue to wean supplemental oxygen to keep O2 sats 88-90% - continue Bronchodilators (DIMA & LABA) with pulm hygiene per RT - continue inhaled corticosteroids - complete empiric antibiotics for AE-COPD - continue to avoid nephrotoxins, renally dose all medications - continue mobility protocols to prevent pressure ulcers - PT/OT as tolerated - continue accuchecks with glycemic control per SSI for target blood glucose < 180 mg/dL - home oxygen evaluation at discharge -optimize nutritional status - VTE prophylaxis - Flu & pneumovax per protocol - Pulmonary out patient follow up for PFTs and optimization of respiratory status - continue other care per attending / other consultants - prn analgesia per pain score Subjective Date of service: 12/28/20 Principal diagnosis: Ac on ch hypoxemic and hypercapnic resp failure; AE-COPD; CMOP Interval history: Patient is seen today for: Acute on chronic hypoxemic respiratory failure; AE- COPD; CMOP; DM II; HTN; Protein-calorie malnutrition Seen and examined at bedside; 24hour events reviewed; nursing and respiratory care staff consulted; no adverse overnight events reported to me; resting peacefully in bed; breathing much improved. Denies any chest pain, no nausea or vomiting. No fever or chills Objective - Exam Narrative Exam: VITAL SIGNS: Reviewed. GENERAL: The patient appearschronically ill looking,thin HEAD: No signs of head trauma. EYES: Pupils are equal. Extraocular motions intact. EARS: Hearing grossly intact. MOUTH: Oropharynx is normal. NECK: No adenopathy, no JVD. CHEST: Chest with diminished breath sounds bilaterally. No wheezes, rales, or rhonchi. CARDIAC: Regular rate and rhythm. S1 and S2, without murmurs, gallops, or rubs. VASCULAR: No Edema. Peripheral pulses normal and equal in all extremities. ABDOMEN: Soft, non tender and non distended. No rebound or guarding, and no masses palpated. Bowel Sounds normal. MUSCULOSKELETAL: Good range of motion of all major joints. Extremities without clubbing, cyanosis or edema. NEUROLOGIC EXAM: Alert and oriented x 3 No focal sensory or strength deficits. Speech normal. Follows commands. PSYCHIATRIC: Mood normal. SKIN: detail exam as documented in skin assessment Vital Signs - 12hr 12/27/20 12/27/2021 19:38 22:00 22:30 Temperature 98.2 F Pulse Rate 84 Pulse Rate [ 102 H Anterior Bilateral Throughout] Respiratory 20 Rate Respiratory 20 Rate [Anterior Bilateral Throughout] Blood Pressure 126/66 O2 Sat by Pulse 99 97 Oximetry 12/27/20 12/27/20 12/28/20 22:31 22:53 03:12 Temperature 97.7 F Pulse Rate 92 H Pulse Rate [ 92 H Anterior Bilateral Throughout] Respiratory 20 Rate Respiratory 18 Rate [Anterior Bilateral Throughout] Blood Pressure 145/71 O2 Sat by Pulse 99 93 Oximetry CBC and BMP: 12/27/20 05:15 12/27/20 05:15 Abnormal lab findings: Abnormal Labs 12/26/20 12/26/20 12/26/20 01:09 01:09 01:09 WBC 13.3 H RBC 3.53 L Hgb 9.3 L Hct 29.3 L MCH 26 L RDW 16.5 H Plt Count 522 H Seg Neuts % (Manual) 95.0 H Lymphocytes % (Manual) 2.0 L Seg Neutrophils # Man 12.6 H Lymphocytes # (Manual) 0.3 L Sodium 135 L Chloride 93.9 L Carbon Dioxide Creatinine 0.5 L Glucose 132 H POC Glucose Lactic Acid 0.60 L 12/26/20 12/26/20 12/26/20 08:56 12:43 16:34 WBC RBC Hgb Hct MCH RDW Plt Count Seg Neuts % (Manual) Lymphocytes % (Manual) Seg Neutrophils # Man Lymphocytes # (Manual) Sodium Chloride Carbon Dioxide Creatinine Glucose POC Glucose 148 H 155 H 170 H Lactic Acid 12/27/20 12/27/20 12/27/20 05:15 05:15 11:21 WBC RBC 3.41 L Hgb 9.6 L Hct 29.0 L MCH RDW 16.5 H Plt Count 514 H Seg Neuts % (Manual) 94.0 H Lymphocytes % (Manual) 4.0 L Seg Neutrophils # Man 8.6 H Lymphocytes # (Manual) 0.4 L Sodium Chloride Carbon Dioxide 38 H D Creatinine 0.3 L Glucose 143 H POC Glucose 183 H Lactic Acid 12/27/20 16:15 WBC RBC Hgb Hct MCH RDW Plt Count Seg Neuts % (Manual) Lymphocytes % (Manual) Seg Neutrophils # Man Lymphocytes # (Manual) Sodium Chloride Carbon Dioxide Creatinine Glucose POC Glucose 213 H Lactic Acid
[2020-12-28] MEDS: methylPREDNISolone Sod Succinate 125 MG/2 ML INJ IV SCH (05:27)
[2020-12-28] MEDS: BUDESONIDE 0.5 MG/2 ML NEBU IH SCH (07:39)
[2020-12-28] MEDS: ARFORMOTEROL 15 MCG/2 ML NEBU IH SCH (07:39)
--- NOTE | 2020-12-28 08:10 | Progress Note ---
Assessment and Plan Assessment and plan: 60-year-old -Citizen Of [place] female with history of hypertension, diabetes, COPD, and chronic respiratory failure on 2 L continuous supplemental home oxygen who presents to [facility] ED with complaints of shortness of breath and difficulty breathing. Patient complains of increased shortness of breath at rest and difficulty breathing for the past 2 to 3 days. She attempted to use her rescue inhaler and increase oxygen delivery with no improvement in symptoms. She decided to call 911 for assistance. Upon EMS arrival to patient's home she was found to be hypoxic on supplemental nasal cannula, and given albuterol Solu- Medrol and magnesium. She was transported to our facility for further evaluation and treatment. At the time of my evaluation patient is on BiPAP with decreased work of breathing, and oxygen saturation of 95%. Of note patient was admitted on 12/15 with similar complaints, intubated on 12/15 and extubated on 12/17. She was discharged on 12/19. Endorses cough with intermittent thick white and ambrocio sputum production Denies recent tobacco/smoking, fever, chills, headache, nausea, vomiting, diarrhea, chest pain, palpitation, abdominal pain, constipation, or recent sick contacts 12/27: Discussed extensively with the litigation attorney will continue management for COPD exacerbation. Discussed with the patient discharged home probably in a.m. with tapering steroid dose. She is denies any fever at this time. She will follow up with her litigation attorney on discharge. Acute exacerbation COPD -CXR shows Hyperinflated lungs but no acute findings -Increased shortness of breath -Scheduled to Farideh and Pulmicort, albuterol when necessary -IV systemic steroids -Start IV ABX -Start Mucinex Acute on chronic hypoxic respiratory failure -Baseline home oxygen requirements 2 L continuously -Currently on BiPAP -Monitor saturations -Monitor CO2 -Continue supplemental oxygen wean as tolerated -s/p intubation 12/15, extubated12/17 Leukocytosis -Likely due to COPD exacerbation, ?? Systemic steroids -WBC on admission 13.3 -Afebrile -Cultures pending -Continue to monitor CBC Anemia -Chronic -Hemoglobin on admission 9.3 (9.8 on 12/18) -Continue to monitor hemoglobin -Transfuse as needed for hgb<7 DM -POC BG monitoring -SSI coverage prn HTN -Monitor BP -Resume home hypertensive meds DVT and GI PPX -On heparin and Pepcid History Interval history: Patient seen and examined this morning reports improvement in symptoms. Not yet back to her baseline Hospitalist Physical - Physical exam Narrative exam: VITAL SIGNS: Reviewed. GENERAL: The patient appears normally developed, Vital signs as documented. HEAD: No signs of head trauma. EYES: Pupils are equal. Extraocular motions intact. EARS: Hearing grossly intact. MOUTH: Oropharynx is normal. NECK: No adenopathy, no JVD. CHEST: Chest with diminished breath sounds bilaterally. No wheezes, rales, or rhonchi. CARDIAC: Regular rate and rhythm. S1 and S2, without murmurs, gallops, or rubs. VASCULAR: No Edema. Peripheral pulses normal and equal in all extremities. ABDOMEN: Soft, non tender and non distended. No rebound or guarding, and no masses palpated. Bowel Sounds normal. MUSCULOSKELETAL: Good range of motion of all major joints. Extremities without clubbing, cyanosis or edema. NEUROLOGIC EXAM: Alert and oriented x 3 No focal sensory or strength deficits. Speech normal. Follows commands. PSYCHIATRIC: Mood normal. SKIN: detail exam as documented in skin assessment - Constitutional Vitals: Temp Pulse Resp BP Pulse Ox 97.6 F 103 H 20 151/75 99 12/28/20 05:38 12/28/20 07:39 12/28/20 07:39 12/28/20 05:38 12/28/20 07:39 Results - Labs CBC & Chem 7: 12/27/20 05:15 12/27/20 05:15 Labs: Laboratory Last Values WBC 9.2 K/mm3 (4.5-11.0) 12/27/20 05:15 RBC 3.41 M/mm3 (3.65-5.03) L 12/27/20 05:15 Hgb 9.6 gm/dl (10.1-14.3) L 12/27/20 05:15 Hct 29.0 % (30.3-42.9) L 12/27/20 05:15 MCV 85 fl (79-97) 12/27/20 05:15 MCH 28 pg (28-32) 12/27/20 05:15 MCHC 33 % (30-34) 12/27/20 05:15 RDW 16.5 % (13.2-15.2) H 12/27/20 05:15 Plt Count 514 K/mm3 (140-440) H 12/27/20 05:15 Add Manual Diff Complete 12/27/20 05:15 Total Counted 100 12/27/20 05:15 Seg Neutrophils % Furniture Technician 12/27/20 05:15 Seg Neuts % (Manual) 94.0 % (40.0-70.0) H 12/27/20 05:15 Lymphocytes % (Manual) 4.0 % (13.4-35.0) L 12/27/20 05:15 Monocytes % (Manual) 2.0 % (0.0-7.3) 12/27/20 05:15 Nucleated RBC % Not Reportable 12/27/20 05:15 Seg Neutrophils # Man 8.6 K/mm3 (1.8-7.7) H 12/27/20 05:15 Band Neutrophils # 0.0 K/mm3 12/27/20 05:15 Lymphocytes # (Manual) 0.4 K/mm3 (1.2-5.4) L 12/27/20 05:15 Abs React Lymphs (Man) 0.0 K/mm3 12/27/20 05:15 Monocytes # (Manual) 0.2 K/mm3 (0.0-0.8) 12/27/20 05:15 Eosinophils # (Manual) 0.0 K/mm3 (0.0-0.4) 12/27/20 05:15 Basophils # (Manual) 0.0 K/mm3 (0.0-0.1) 12/27/20 05:15 Metamyelocytes # 0.0 K/mm3 12/27/20 05:15 Myelocytes # 0.0 K/mm3 12/27/20 05:15 Promyelocytes # 0.0 K/mm3 12/27/20 05:15 Blast Cells # 0.0 K/mm3 12/27/20 05:15 WBC Morphology Not Reportable 12/27/20 05:15 Hypersegmented Neuts Not Reportable 12/27/20 05:15 Hyposegmented Neuts Not Reportable 12/27/20 05:15 Hypogranular Neuts Not Reportable 12/27/20 05:15 Smudge Cells Not Reportable 12/27/20 05:15 Toxic Granulation Not Reportable 12/27/20 05:15 Toxic Vacuolation Not Reportable 12/27/20 05:15 Dohle Bodies Not Reportable 12/27/20 05:15 Pelger-Huet Anomaly Not Reportable 12/27/20 05:15 Clau Rods Not Reportable 12/27/20 05:15 Platelet Estimate Consistent w auto 12/27/20 05:15 Clumped Platelets Not Reportable 12/27/20 05:15 Plt Clumps, EDTA Not Reportable 12/27/20 05:15 Large Platelets Not Reportable 12/27/20 05:15 Giant Platelets Not Reportable 12/27/20 05:15 Platelet Satelliting Not Reportable 12/27/20 05:15 Plt Morphology Comment Not Reportable 12/27/20 05:15 RBC Morphology Not Reportable 12/27/20 05:15 Dimorphic RBCs Not Reportable 12/27/20 05:15 Polychromasia Not Reportable 12/27/20 05:15 Hypochromasia Not Reportable 12/27/20 05:15 Poikilocytosis 1+ 12/27/20 05:15 Anisocytosis 1+ 12/27/20 05:15 Microcytosis Not Reportable 12/27/20 05:15 Macrocytosis Not Reportable 12/27/20 05:15 Spherocytes Not Reportable 12/27/20 05:15 Pappenheimer Bodies Not Reportable 12/27/20 05:15 Sickle Cells Not Reportable 12/27/20 05:15 Target Cells 1+ 12/27/20 05:15 Tear Drop Cells Not Reportable 12/27/20 05:15 Ovalocytes Not Reportable 12/27/20 05:15 Helmet Cells Not Reportable 12/27/20 05:15 [place] Bodies Not Reportable 12/27/20 05:15 Angela Rings Not Reportable 12/27/20 05:15 Maryjo Cells Not Reportable 12/27/20 05:15 Bite Cells Not Reportable 12/27/20 05:15 Crenated Cell Not Reportable 12/27/20 05:15 Elliptocytes Not Reportable 12/27/20 05:15 Acanthocytes (Spur) Not Reportable 12/27/20 05:15 Rouleaux Not Reportable 12/27/20 05:15 Hemoglobin C Crystals Not Reportable 12/27/20 05:15 Schistocytes Not Reportable 12/27/20 05:15 Malaria parasites Not Reportable 12/27/20 05:15 Patric Bodies Not Reportable 12/27/20 05:15 Hem Pathologist Commnt No 12/27/20 05:15 Sodium 140 mmol/L (137-145) 12/27/20 05:15 Potassium 3.7 mmol/L (3.6-5.0) 12/27/20 05:15 Chloride 98.0 mmol/L (98-107) 12/27/20 05:15 Carbon Dioxide 38 mmol/L (22-30) H D 12/27/20 05:15 Anion Gap 8 mmol/L 12/27/20 05:15 BUN 14 mg/dL (7-17) 12/27/20 05:15 Creatinine 0.3 mg/dL (0.6-1.2) L 12/27/20 05:15 Estimated GFR > 60 ml/min 12/27/20 05:15 BUN/Creatinine Ratio 47 % 12/27/20 05:15 Glucose 143 mg/dL (65-100) H 12/27/20 05:15 POC Glucose 213 mg/dL (70-105) H 12/27/20 16:15 Lactic Acid 0.60 mmol/L (0.7-2.0) L 12/26/20 01:09 Calcium 9.7 mg/dL (8.4-10.2) 12/27/20 05:15 Total Bilirubin 0.30 mg/dL (0.1-1.2) 12/26/20 01:09 AST 13 units/L (5-40) 12/26/20 01:09 ALT 12 units/L (7-56) 12/26/20 01:09 Alkaline Phosphatase 55 units/L (35-129) 12/26/20 01:09 Total Protein 6.5 g/dL (6.3-8.2) 12/26/20 01:09 Albumin 4.1 g/dL (3.9-5) 12/26/20 01:09 Albumin/Globulin Ratio 1.7 % 12/26/20 01:09 Coronavirus (PCR) Negative (Negative) 12/26/20 08:00 Microbiology: Microbiology 12/26/20 04:36 Peripheral/Venous Blood Culture - Preliminary NO GROWTH AFTER 48 HOURS 12/26/20 04:16 Peripheral/Venous Blood Culture - Preliminary NO GROWTH AFTER 48 HOURS Robbins/IV: Voiding Method Toilet Active Medications - Current Medications Current Medications: Generic Name Dose Route Start Last Admin Trade Name Freq PRN Reason Stop Dose Admin Acetaminophen 650 mg 12/26/20 02:55 Acetaminophen 325 Mg Tab PO Q4H PRN Pain MILD(1-3)/Fever >100.5/DELGADO Albuterol 2.5 mg 12/26/20 02:55 Albuterol 2.5 Mg/3 Ml Nebu IH Q3HRT PRN Shortness Of Breath Albuterol/Ipratropium 1 ampul 12/26/20 08:00 12/28/20 07:39 Ipratropium/Albuterol Sulfate 3 Ml Ampul.Neb IH 1 ampul Q6HRT DAE Administration Amlodipine Besylate 10 mg 12/26/20 10:00 12/27/20 09:21 Amlodipine 10 Mg Tab PO 10 mg QDAY DAE Administration Arformoterol Tartrate 15 mcg 12/26/20 10:00 12/28/20 07:39 Arformoterol 15 Mcg/2 Ml Nebu IH 15 mcg Q12HRT DAE Administration Budesonide 0.5 mg 12/26/20 10:00 12/28/20 07:39 Budesonide 0.5 Mg/2 Ml Nebu IH 0.5 mg Q12HRT DAE Administration Dextrose 50 ml 12/26/20 02:55 Dextrose 50% In Water (25gm) 50 Ml Syringe IV Q30MIN PRN Hypoglycemia Protocol Diltiazem HCl 60 mg 12/26/20 10:00 12/27/20 21:18 Diltiazem 60 Mg Tab PO 60 mg QID DAE Administration Docusate Sodium 100 mg 12/26/20 10:00 12/27/20 21:17 Docusate Sodium 100 Mg Cap PO 100 mg BID DAE Administration Famotidine 10 mg 12/26/20 10:00 12/27/20 21:18 Famotidine 10 Mg Tab PO 10 mg BID DAE Administration Guaifenesin 600 mg 12/26/20 10:00 12/27/20 21:17 Guaifenesin Er 600 Mg Tab PO 600 mg BID DAE Administration Heparin Sodium (Porcine) 5,000 unit 12/26/20 10:00 12/27/20 21:18 Heparin 5,000 Unit/1 Ml Vial SUB-Q 5,000 unit Q12HR DAE Administration Levofloxacin/Dextrose 500 mg in 100 mls @ 100 mls/hr 12/26/20 03:00 12/28/20 03:21 Levaquin 500mg/100ml IV 12/31/20 02:59 100 mls/hr Q24H DAE Administration Protocol Insulin Human Lispro 0 unit 12/26/20 07:30 12/27/20 22:21 Insulin Lispro 100 Unit/Ml SUB-Q Not Given ACHS [facility] Protocol Methylprednisolone Sodium Succinate 60 mg 12/26/20 06:00 12/28/20 05:27 Methylprednisolone Sod Succinate 125 Mg/2 Ml Inj IV 60 mg Q8HR DAE Administration Montelukast Sodium 10 mg 12/26/20 22:00 12/27/20 21:18 Montelukast 10 Mg Tab PO 10 mg QHS DAE Administration Naloxone HCl 0.1 mg 12/26/20 02:55 Naloxone 0.4 Mg/1 Ml Inj IV Q2MIN PRN Res Rate </= 8 or 02 SAT < 92% Ondansetron HCl 4 mg 12/26/20 02:55 Ondansetron 4 Mg/2 Ml Inj IV Q6H PRN Nausea And Vomiting Oxycodone/Acetaminophen 1 tab 12/26/20 02:55 12/27/20 21:18 Oxycodone /Acetaminophen 5-325mg Tab PO 1 tab Q6H PRN Administration Pain, Moderate (4-6) Sodium Chloride 10 ml 12/26/20 10:00 12/27/20 21:17 Sodium Chloride 0.9% 10 Ml Flush Syringe IV 10 ml BID DAE Administration Sodium Chloride 10 ml 12/26/20 02:55 Sodium Chloride 0.9% 10 Ml Flush Syringe IV PRN PRN LINE FLUSH Nutrition/Malnutrition Assess - Dietary Evaluation Nutrition/Malnutrition Findings: Nutrition Notes Start: 12/27/20 12:58 Freq: Status: Active Protocol: Document 12/27/20 12:58 HERBERT (Rec: 12/27/20 13:03 HERBERT [id number]) Nutrition Notes Need for Assessment generated from: Low BMI Initial or Follow up Assessment Current Diagnosis COPD,Diabetes,Hypertension, Respiratory Failure Other Pertinent Diagnosis anemia Current Diet Cardiac, Consistent CHO Labs/Tests reviewed Pertinent Medications Solu Medrol Height 5 ft 2 in Weight 40 kg [place] Body Weight (kg) 50.00 BMI 16.1 Weight Status Underweight Subjective/Other Information Screen for low BMI. Unable to speak with pt. Per RN, pt ate 10% of breakfast and has had a decreased appetite for a couple days. Burn Absent Trauma Absent Current % PO Negligible Minimum of two criteria No #1 Nutrition Diagnosis Inadequate oral intake Etiology acute illness As Evidenced by Signs and Symptoms pt eating 10% of meals Is patient on ventilator? No Is Patient Ambulatory and/or Out of Bed Yes REE-(Barnwell-St. Jeor-ambulatory/OOB) [ 1200.225 NUTR.MSJOOB] Kcal/Kg value to use for calculation 35 Approximate Energy Requirements Using 1400 kcal/Kg Calculation Used for Recommendations Kcal/kg Additional Notes Protein: (1-1.2g/kg) 40-48g Fluid: 1 ml/kcal Nutrition Intervention Change Diet Order: continue Add Supplement/Snack (indicate name/kcal Ensure Enlive BID /protein ) Provides kCal: 700 Provides Protein (gm) 40 Goal #1 Meet at least 75% of energy and protein needs via PO and ONS Anticipated Discharge Needs: cardiac, consistent CHO Follow-Up By: 12/31/20 Additional Comments FU for assessment, intakes and ONS tolerance
--- NOTE | 2020-12-28 08:14 | Discharge Summary ---
Providers - Providers Date of Admission: 12/26/20 11:24 Attending physician: ARTHUR WILSON MD 12/26/20 13:48 Consult to Physician [CONS] Routine Comment: Consulting Provider: ALEX GALINDO Physician Instructions: Reason For Exam: COPD EXACERBATION Primary care physician: PLAN[employer] SKY SHOW TECHNICIAN Hospitalization Reason for admission: Shortness of breath Condition: Stable Hospital course: 60-year-old -[place] female with history of hypertension, diabetes, COPD, and chronic respiratory failure on 2 L continuous supplemental home oxygen who presents to [facility] ED with complaints of shortness of breath and difficulty breathing. Patient complains of increased shortness of breath at rest and difficulty breathing for the past 2 to 3 days. She attempted to use her rescue inhaler and increase oxygen delivery with no improvement in symptoms. She decided to call 911 for assistance. Upon EMS arrival to patient's home she was found to be hypoxic on supplemental nasal cannula, and given albuterol Solu- Medrol and magnesium. She was transported to our facility for further evaluation and treatment. At the time of my evaluation patient is on BiPAP with decreased work of breathing, and oxygen saturation of 95%. Of note patient was admitted on 12/15 with similar complaints, intubated on 12/15 and extubated on 12/17. She was discharged on 12/19. Endorses cough with intermittent thick white and ambrocio sputum production Denies recent tobacco/smoking, fever, chills, headache, nausea, vomiting, diarrhea, chest pain, palpitation, abdominal pain, constipation, or recent sick contacts 12/27: Discussed extensively with the golf caddie will continue management for COPD exacerbation. Discussed with the patient discharged home probably in a.m. with tapering steroid dose. She is denies any fever at this time. She will follow up with her golf caddie on discharge. 12/28: Continue supportive care. Patient doing well no further fever. Improvement in respiratory status. Discharge as documented in plan Acute exacerbation COPD -CXR shows Hyperinflated lungs but no acute findings -Increased shortness of breath -Scheduled to DuDarrylbs and Pulmicort, albuterol when necessary -IV systemic steroids -Start IV ABX -Start Mucinex Acute on chronic hypoxic respiratory failure -Baseline home oxygen requirements 2 L continuously -Currently on BiPAP -Monitor saturations -Monitor CO2 -Continue supplemental oxygen wean as tolerated -s/p intubation 12/15, extubated12/17 Leukocytosis -Likely due to COPD exacerbation, ?? Systemic steroids -WBC on admission 13.3 -Afebrile -Cultures pending -Continue to monitor CBC Anemia -Chronic -Hemoglobin on admission 9.3 (9.8 on 12/18) -Continue to monitor hemoglobin -Transfuse as needed for hgb<7 DM -POC BG monitoring -SSI coverage prn HTN -Monitor BP -Resume home hypertensive meds DVT and GI PPX -On heparin and Pepcid Disposition: HOME / SELF CARE / HOMELESS Final Discharge Diagnosis (Prints w/discharge instructions): COPD with acute exacerbation Time spent for discharge: 35 MINS Core Measure Documentation - Palliative Care Palliative Care/ Comfort Measures: Not Applicable - Core Measures Any of the following diagnoses?: none Exam - Physical Exam Narrative exam: VITAL SIGNS: Reviewed. GENERAL: The patient appears normally developed, Vital signs as documented. HEAD: No signs of head trauma. EYES: Pupils are equal. Extraocular motions intact. EARS: Hearing grossly intact. MOUTH: Oropharynx is normal. NECK: No adenopathy, no JVD. CHEST: Chest with diminished breath sounds bilaterally. No wheezes, rales, or rhonchi. CARDIAC: Regular rate and rhythm. S1 and S2, without murmurs, gallops, or rubs. VASCULAR: No Edema. Peripheral pulses normal and equal in all extremities. ABDOMEN: Soft, non tender and non distended. No rebound or guarding, and no masses palpated. Bowel Sounds normal. MUSCULOSKELETAL: Good range of motion of all major joints. Extremities without clubbing, cyanosis or edema. NEUROLOGIC EXAM: Alert and oriented x 3 No focal sensory or strength deficits. Speech normal. Follows commands. PSYCHIATRIC: Mood normal. SKIN: detail exam as documented in skin assessment - Constitutional Vitals: Temp Pulse Resp BP Pulse Ox 97.6 F 103 H 20 151/75 99 12/28/20 05:38 12/28/20 07:39 12/28/20 07:39 12/28/20 05:38 12/28/20 07:39 Plan Activity: advance as tolerated, fall precautions Diet: diabetic Special Instructions: record daily weights, record daily BP diary, record blood sugar diary Follow up with: PRIMARY MD JESIKA [Primary Care Provider] - 3-5 Days BARBI CHAVEZ MD [Staff Physician] - 7 Days Prescriptions: Montelukast [Singulair] 10 mg PO QHS 30 Days #30 tablet Arformoterol Nebu [Brovana Nebu] 15 mcg IH Q12HRT 30 Days #1 inh Ipratropium/Albuterol Sulfate [DUONEB *Not for PRN Use*] 1 ampul IH Q6HRT #120 ampul.neb Prednisone [predniSONE 10 mg (6-Day Pack, 21 Tabs)] 10 mg PO .TAPER #1 tab.ds.pk Budesonide [Pulmicort Respules] 0.5 mg IH Q12HRT 30 Days #1 nebu
[2020-12-28] MEDS: INSULIN LISPRO 100 UNIT/ML SUB-Q SCH (08:57)
[2020-12-28] MEDS: FAMOTIDINE 10 MG TAB PO SCH (09:32)
[2020-12-28] MEDS: DOCUSATE SODIUM 100 MG CAP PO SCH (09:33)
[2020-12-28] MEDS: amLODIPine 10 MG TAB PO SCH (09:33)
[2020-12-28] MEDS: HEPARIN 5,000 UNIT/1 ML VIAL SUB-Q SCH (09:33)
[2020-12-28] MEDS: dilTIAZem 60 MG TAB PO SCH (09:33)
[2020-12-28] MEDS: guaiFENesin ER 600 MG TAB PO SCH (09:40)
[2020-12-28 09:48] VITALS: BP 139/74
== END 2020-12-28 19:15 | disposition home health service (06) | DRG 189 ==
LOC: ED 23:47 → 3A 12-26 02:55 → OBSVTOIN 12-26 11:24 → 4A 12-26 19:36
PROVIDERS: ADMIT Internal Medicine Geriatric Medicine; ATTEND Internal Medicine
PROC: 5A09357 Assistance with Respiratory Ventilation, Less than 24 Consecutive Hours, Continuous Positive Airway Pressure (ICD-10-PCS; principal; 2020-12-26)
DX: J96.21 Acute and chronic respiratory failure with hypoxia (principal); J44.1 Chronic obstructive pulmonary disease with (acute) exacerbation; E46 Unspecified protein-calorie malnutrition; Z68.1 Body mass index [BMI] 19.9 or less, adult; I42.9 Cardiomyopathy, unspecified; D64.9 Anemia, unspecified; I10 Essential (primary) hypertension; Z20.822 Contact with and (suspected) exposure to COVID-19; Z87.891 Personal history of nicotine dependence; E11.9 Type 2 diabetes mellitus without complications
CPT/HCPCS: 36415; 71045; 80048; 80053; 82140; 82962; 85007; 85025; 87040; 94640; 94644; 94760; G0378; J1644; J1815; J1956; J2930; U0003